=== PATIENT | female | born 1960 | race Caucasian/White ===

== ENCOUNTER → 2016-05-24 | Outpatient (CLI) | payer BC ==
[~2016-05-24] MED LIST: ACET30TAB PO; AMBI5TAB PO; BROM5CAP PO; BUPR15TAXL PO; CELE40TA PO; MOTR200T40 PO; SYNT100T PO; SYNT88TA2 PO; VOLTAREN PR; [UNRECOGNIZED DRUG - CODE] PO
[2016-05-24 10:15] LABS: BASO % 0.7 % (0.0-1.0); EOS # 0.3 K/mm3 (0.0-0.50); EOS % 4.8 % (0.0-3.0); LARGE UNSTAINED CELL # 0.2 K/mm3 (0.0-0.4); LARGE UNSTAINED CELL % 3.1 % (0.0-4.0); LYMPH % 30.6 % (24.0-44.0); MEAN CORPUSCULAR HEMOGLOBIN 29.7 pg (27.0-33.0); MEAN CORPUSCULAR VOLUME 90.1 fl (80.0-96.0); MONO # 0.3 K/mm3 (0.0-0.8); MONO % 3.9 % (0.0-5.0); NEUTROPHILS # 3.7 K/mm3 (1.8-7.7); NEUTROPHILS % 56.8 % (36.0-66.0); PLATELET COUNT, AUTOMATED 282 k/mm3 (150-450); WHITE BLOOD COUNT 6.4 K/mm3 (4.0-10.0)
[2016-05-24 10:55] LABS: ALBUMIN 3.7 GM/DL (3.2-5.2); ALBUMIN/GLOBULIN RATIO 1.16 (1.00-1.93); ALKALINE PHOSPHATASE 132 U/L (45-117); ALT/SGPT 24 U/L (12-78); ANION GAP 7 MEQ/L (8-16); AST/SGOT 17 U/L (15-37); BILIRUBIN,TOTAL 0.3 MG/DL (0.2-1.0); BLOOD UREA NITROGEN 25 MG/DL (7-18); CALCIUM LEVEL 8.8 MG/DL (8.5-10.1); CARBON DIOXIDE LEVEL 26 MEQ/L (21-32); CHLORIDE LEVEL 111 MEQ/L (98-107); CHOLESTEROL LEVEL 290 MG/DL (<200); CREATININE FOR GFR 0.74 MG/DL (0.55-1.02); FERRITIN 81 NG/ML (8-252); FREE T4 1.02 NG/DL (0.76-1.46); GLOMERULAR FILTRATION RATE > 60.0 (>51); GLUCOSE, FASTING 90 MG/DL (70-105); POTASSIUM SERUM 4.6 MEQ/L (3.5-5.1); SODIUM LEVEL 144 MEQ/L (136-145); TOTAL PROTEIN 6.9 GM/DL (6.4-8.2); TRIGLYCERIDES LEVEL 173 MG/DL (<150)
== END ==
LOC: M LAB 09:58
PROVIDERS: ATTEND Family Medicine
DX: D50.9 Iron deficiency anemia, unspecified (principal); Z13.29 Encounter for screening for other suspected endocrine disorder; Z13.220 Encounter for screening for lipoid disorders; E03.8 Other specified hypothyroidism

== ENCOUNTER → 2016-06-27 | Outpatient (CLI) | payer BC ==
[~2016-06-27] MED LIST changes: -MOTR200T40 PO; +MOTR200T44 PO
[2016-06-27 10:02] LABS: FREE T4 1.1 NG/DL (0.76-1.46)
[2016-06-27 10:46] LABS: PROLACTIN 8.2 NG/ML
== END ==
LOC: M LAB 09:07
PROVIDERS: ATTEND Internal Medicine
DX: E03.9 Hypothyroidism, unspecified (principal); E22.1 Hyperprolactinemia

== ENCOUNTER → 2016-06-27 | Outpatient (CLI) | payer BC ==
[2016-06-27 09:58] LABS: ALBUMIN 3.7 GM/DL (3.2-5.2); ALBUMIN/GLOBULIN RATIO 1.19 (1.00-1.93); ALKALINE PHOSPHATASE 139 U/L (45-117); ALT/SGPT 23 U/L (12-78); ANION GAP 5 MEQ/L (8-16); AST/SGOT 18 U/L (15-37); BILIRUBIN,TOTAL 0.3 MG/DL (0.2-1.0); BLOOD UREA NITROGEN 27 MG/DL (7-18); CALCIUM LEVEL 9.2 MG/DL (8.5-10.1); CARBON DIOXIDE LEVEL 29 MEQ/L (21-32); CHLORIDE LEVEL 110 MEQ/L (98-107); CHOLESTEROL LEVEL 184 MG/DL (<200); CREATININE FOR GFR 0.66 MG/DL (0.55-1.02); GLOMERULAR FILTRATION RATE > 60.0 (>51); GLUCOSE, FASTING 85 MG/DL (70-105); POTASSIUM SERUM 4.4 MEQ/L (3.5-5.1); SODIUM LEVEL 144 MEQ/L (136-145); TOTAL PROTEIN 6.8 GM/DL (6.4-8.2); TRIGLYCERIDES LEVEL 93 MG/DL (<150)
--- NOTE | 2016-06-27 12:55 | REPMRS ---
Patient History The patient states she has not had a clinical breast exam in over a year. Family history of breast cancer in maternal grandmother at age 40, breast cancer in maternal cousin at age 45, and colorectal cancer in maternal uncle at age 65. Benign ultrasound-guided core biopsy of the right breast, October 17, 2008. Digital Mammo Screening Bilat: June 27, 2016 - Exam #: [id number] Bilateral CC and MLO view(s) were taken. Technologist: Angela Castro, Technologist Prior study comparison: May 15, 2015, bilateral digital mammo screening bilat performed at [facility]. October 19, 2013, bilateral digital mammo screening bilat performed at [facility]. August 12, 2012, bilateral digital mammo screening bilat performed at [facility]. FINDINGS: There are scattered fibroglandular densities. There has been no change in the appearance of the mammogram from the prior studies. There is a needle biopsy marker clip in the right breast. There is a mild amount of scattered fibroglandular density which is fairly symmetric. There is no interval development of dominant mass, architectural distortion, or clustered microcalcification suggestive of malignancy. ASSESSMENT: BI-RADS/ACR category 2 mammogram. Benign finding(s). Recommendation Routine screening mammogram in 1 year (for women over age 40). This mammogram was interpreted with the aid of an FDA-approved computer-aided dectection system. Electronically Signed By: Everardo Obando MD 06/27/16 [id number]
== END ==
LOC: M LAB 09:02
PROVIDERS: ATTEND Family Medicine
DX: E78.00 Pure hypercholesterolemia, unspecified (principal); Z12.31 Encounter for screening mammogram for malignant neoplasm of breast
CPT/HCPCS: 36415; 80053; 80061; G0202

== ENCOUNTER → 2016-12-18 | Outpatient (CLI) | payer BC ==
[2016-12-18 14:56] LABS: BASO % 0.6 % (0.0-1.0); EOS # 0.2 K/mm3 (0.0-0.50); EOS % 3.2 % (0.0-3.0); LARGE UNSTAINED CELL # 0.2 K/mm3 (0.0-0.4); LARGE UNSTAINED CELL % 2.1 % (0.0-4.0); LYMPH # 3.2 K/mm3 (1.5-4.5); LYMPH % 42.6 % (24.0-44.0); MEAN CORPUSCULAR HEMOGLOBIN 31.4 pg (27.0-33.0); MEAN CORPUSCULAR HGB CONC 35.4 g/dl (32.0-36.5); MEAN CORPUSCULAR VOLUME 88.7 fl (80.0-96.0); MONO # 0.3 K/mm3 (0.0-0.8); MONO % 4.7 % (0.0-5.0); NEUTROPHILS # 3.4 K/mm3 (1.8-7.7); NEUTROPHILS % 46.8 % (36.0-66.0); PLATELET COUNT, AUTOMATED 285 k/mm3 (150-450); RED CELL DISTRIBUTION WIDTH 13.5 % (11.5-14.5); WHITE BLOOD COUNT 7.2 K/mm3 (4.0-10.0)
[2016-12-18 15:30] LABS: ALBUMIN 3.7 GM/DL (3.2-5.2); PERCENT SATURATION 16.4 % (13.2-45.0)
== END ==
LOC: M LAB 14:31
PROVIDERS: ATTEND Orthopaedic Surgery
DX: Z01.818 Encounter for other preprocedural examination (principal); D63.8 Anemia in other chronic diseases classified elsewhere; M25.562 Pain in left knee; M17.10 Unilateral primary osteoarthritis, unspecified knee

== ENCOUNTER 2017-03-13 12:00 | Outpatient (RCR) | payer BC | END 2017-03-18 | LOC: M PT 12:00 | PROVIDERS: ATTEND Orthopaedic Surgery | DX: M25.562 Pain in left knee (principal); M17.5 Other unilateral secondary osteoarthritis of knee; M17.12 Unilateral primary osteoarthritis, left knee; S83.102A Unspecified subluxation of left knee, initial encounter; X58.XXXA Exposure to other specified factors, initial encounter; Y92.9 Unspecified place or not applicable ==

== ENCOUNTER → 2017-05-01 | Outpatient (CLI) | payer BC ==
[2017-05-01 08:59] LABS: BASO # 0.1 10^3/uL (0.0-0.2); BASO % 0.8 % (0.0-1.0); EOS # 0.3 10^3/uL (0.0-0.50); EOS % 4.2 % (0.0-3.0); IMMATURE GRANULOCYTE % 0.2 % (0-0); LYMPH # 1.7 10^3/uL (1.5-4.5); LYMPH % 26.6 % (24.0-44.0); MEAN CORPUSCULAR HEMOGLOBIN 28.7 pg (27.0-33.0); MEAN CORPUSCULAR HGB CONC 32.7 g/dl (32.0-36.5); MEAN CORPUSCULAR VOLUME 87.8 fl (80.0-96.0); MONO # 0.4 10^3/uL (0.0-0.8); MONO % 7.1 % (0.0-5.0); NEUTROPHILS # 3.8 10^3/uL (1.8-7.7); NEUTROPHILS % 61.1 % (36.0-66.0); PLATELET COUNT, AUTOMATED 360 10^3/uL (150-450); RED CELL DISTRIBUTION WIDTH 14.3 % (11.5-14.5); WHITE BLOOD COUNT 6.2 10^3/uL (4.0-10.0)
[2017-05-01 09:36] LABS: ALBUMIN 3.8 GM/DL (3.2-5.2); ALBUMIN/GLOBULIN RATIO 1.19 (1.00-1.93); ALKALINE PHOSPHATASE 115 U/L (45-117); ALT/SGPT 22 U/L (12-78); ANION GAP 6 MEQ/L (8-16); AST/SGOT 18 U/L (7-37); BILIRUBIN,TOTAL 0.2 MG/DL (0.2-1.0); BLOOD UREA NITROGEN 19 MG/DL (7-18); CALCIUM LEVEL 8.8 MG/DL (8.5-10.1); CARBON DIOXIDE LEVEL 27 MEQ/L (21-32); CHLORIDE LEVEL 108 MEQ/L (98-107); CHOLESTEROL LEVEL 172 MG/DL (<200); CREATININE FOR GFR 0.64 MG/DL (0.55-1.02); GLOMERULAR FILTRATION RATE > 60.0 (>51); GLUCOSE, FASTING 89 MG/DL (70-105); POTASSIUM SERUM 4.6 MEQ/L (3.5-5.1); SODIUM LEVEL 141 MEQ/L (136-145); TRIGLYCERIDES LEVEL 97 MG/DL (<150)
== END ==
LOC: M LAB 08:20
PROVIDERS: ATTEND Family Medicine
DX: E78.00 Pure hypercholesterolemia, unspecified (principal)

== ENCOUNTER → 2017-06-05 | Outpatient (CLI) | payer BC ==
[2017-06-05 09:24] LABS: FREE T4 1.18 NG/DL (0.76-1.46); THYROID STIMULATING HORMONE 0.999 uIU/ML (0.358-3.740)
[2017-06-10 14:14] LABS: PERCENT MACROPROLACTIN 0 % (.); PROLACTIN MONOMERIC 11 ng/mL (.); PROLACTIN TOTAL 11 ng/mL (.)
== END ==
LOC: M LAB 08:11
DX: E03.9 Hypothyroidism, unspecified (principal); E22.1 Hyperprolactinemia
CPT/HCPCS: 84146

== ENCOUNTER → 2017-11-06 | Outpatient (CLI) | payer BC ==
[~2017-11-06] MED LIST changes: -ACET30TAB PO; -AMBI5TAB PO; -BROM5CAP PO; -BUPR15TAXL PO; -CELE40TA PO; +LIDOCAINE 1% MDV 20ML VIAL As Ordered; -MOTR200T44 PO; -SYNT100T PO; -SYNT88TA2 PO; -VOLTAREN PR; -[UNRECOGNIZED DRUG - CODE] PO
== END ==
LOC: M RAD 08:05 → M RADPRO 08:05
DX: R92.0 Mammographic microcalcification found on diagnostic imaging of breast (principal); Z79.899 Other long term (current) drug therapy; Z88.0 Allergy status to penicillin; Z88.2 Allergy status to sulfonamides; Z79.890 Hormone replacement therapy
CPT/HCPCS: 19081

== ENCOUNTER → 2017-11-07 | Outpatient (CLI) | payer BC | LOC: M WHC 12:54 | DX: Z13.820 Encounter for screening for osteoporosis (principal); M81.0 Age-related osteoporosis without current pathological fracture | CPT/HCPCS: 77080 ==

== ENCOUNTER → 2017-11-20 | Outpatient (CLI) | payer BC | LOC: M CARPUL 09:11 | DX: R01.1 Cardiac murmur, unspecified (principal) | CPT/HCPCS: 93306 ==

== ENCOUNTER → 2017-11-27 | Outpatient (CLI) | payer BC ==
[2017-11-27 10:17] LABS: HEMOGLOBIN 11.9 g/dl (12.0-15.5)
[2017-11-27 11:16] LABS: FERRITIN 99 NG/ML (8-252); IRON (FE) 54 UG/DL (50-170); PERCENT SATURATION 17.8 % (13.2-45.0); TOTAL IRON BINDING CAPACITY 304 UG/DL (250-450)
[2017-11-27 11:16] LABS: ALBUMIN 3.7 GM/DL (3.2-5.2)
== END ==
LOC: M LAB 09:50
DX: M25.562 Pain in left knee (principal)
CPT/HCPCS: 82040

== ENCOUNTER → 2018-01-15 | Outpatient (CLI) | payer BC ==
[2018-01-15 11:45] LABS: BASO % 0.6 % (0.0-1.0); EOS # 0.2 10^3/uL (0.0-0.50); EOS % 3.8 % (0.0-3.0); HEMATOCRIT 36.1 % (36.0-47.0); IMMATURE GRANULOCYTE % 0.3 % (0-3.0); LYMPH % 31.3 % (24.0-44.0); MEAN CORPUSCULAR HEMOGLOBIN 29.6 pg (27.0-33.0); MEAN CORPUSCULAR HGB CONC 33.2 g/dl (32.0-36.5); MEAN CORPUSCULAR VOLUME 88.9 fl (80.0-96.0); MONO # 0.4 10^3/uL (0.0-0.8); MONO % 6.1 % (0.0-5.0); NEUTROPHILS # 3.7 10^3/uL (1.8-7.7); NEUTROPHILS % 57.9 % (36.0-66.0); PLATELET COUNT, AUTOMATED 300 10^3/uL (150-450); RED BLOOD COUNT 4.06 10^6/uL (4.00-5.40); RED CELL DISTRIBUTION WIDTH 14.3 % (11.5-14.5); WHITE BLOOD COUNT 6.4 10^3/uL (4.0-10.0)
[2018-01-15 11:56] LABS: INR 1.03; PROTHROMBIN TIME 13.6 SECONDS (12.1-14.4)
[2018-01-15 11:57] LABS: PARTIAL THROMBOPLASTIN TIME 35.4 SECONDS (25.4-37.6)
[2018-01-15 12:22] LABS: ALBUMIN 3.8 GM/DL (3.2-5.2); ALBUMIN/GLOBULIN RATIO 1.19 (1.00-1.93); ALKALINE PHOSPHATASE 117 U/L (45-117); ALT/SGPT 21 U/L (12-78); ANION GAP 8 MEQ/L (8-16); AST/SGOT 16 U/L (7-37); BILIRUBIN,TOTAL 0.3 MG/DL (0.2-1.0); BLOOD UREA NITROGEN 14 MG/DL (7-18); CALCIUM LEVEL 9.5 MG/DL (8.5-10.1); CARBON DIOXIDE LEVEL 27 MEQ/L (21-32); CHLORIDE LEVEL 107 MEQ/L (98-107); GLOMERULAR FILTRATION RATE > 60.0 (>51); GLUCOSE, FASTING 94 MG/DL (70-100); POTASSIUM SERUM 4.4 MEQ/L (3.5-5.1); SODIUM LEVEL 142 MEQ/L (136-145)
== END ==
LOC: M LAB 11:22
DX: Z01.818 Encounter for other preprocedural examination (principal)

== ENCOUNTER → 2018-06-16 | Outpatient (CLI) | payer BC ==
[~2018-06-16] MED LIST changes: +ACET30TAB PO; +AMBI5TAB PO; +BROM5CAP PO; +BUPR15TAXL PO; +CELE40TA PO; -LIDOCAINE 1% MDV 20ML VIAL As Ordered; +MOTR200T44 PO; +SYNT100T PO; +SYNT88TA2 PO; +VOLTAREN PR; +[UNRECOGNIZED DRUG - CODE] PO
[2018-06-16 09:04] LABS: FREE T4 1.31 NG/DL (0.76-1.46); THYROID STIMULATING HORMONE 0.298 uIU/ML (0.358-3.740)
[2018-06-16 09:05] LABS: PROLACTIN 5.6 NG/ML
== END ==
LOC: M LAB 08:01
PROVIDERS: ATTEND Nurse Practitioner Family
DX: E03.9 Hypothyroidism, unspecified (principal); E22.1 Hyperprolactinemia

== ENCOUNTER → 2018-07-28 | Outpatient (CLI) | payer BC ==
[2018-07-28 08:48] LABS: FREE T4 1.29 NG/DL (0.76-1.46); THYROID STIMULATING HORMONE 0.447 uIU/ML (0.358-3.740)
== END ==
LOC: M LAB 08:02
PROVIDERS: ATTEND Internal Medicine Endocrinology, Diabetes & Metabolism
DX: E03.9 Hypothyroidism, unspecified (principal)

== ENCOUNTER → 2018-12-22 | Outpatient (CLI) | payer BC ==
[~2018-12-22] MED LIST changes: +ACET-716 PO; -ACET30TAB PO; -BUPR15TAXL PO; +BUPR1TAB43 PO
--- NOTE | 2018-12-22 11:08 | REPMRS ---
Patient History The patient states she has not had a clinical breast exam in over a year. Family history of breast cancer at age 40 in maternal grandmother, breast cancer at age 45 in maternal cousin, colorectal cancer at age 65 in maternal uncle, breast cancer at age 59 in maternal cousin. Benign radio exam breast specimen of the right breast, November 06, 2017. Benign stereotatic loc for ea lesion of the right breast, November 06, 2017. Benign ultrasound-guided core biopsy of the right breast, October 17, 2008. Taking unspecified hormones for 25 years. 3D TOMOSYNTHESIS WAS PERFORMED. The [facility] lifetime risk for breast cancer is 14.8%. Digital Mammo Screening Bilat: December 22, 2018 - Exam #: [id number] Bilateral CC and MLO view(s) were taken. Technologist: Angela Castro, Technologist Prior study comparison: November 06, 2017, right breast digital mammo diagnostic unilateral performed at [facility]. November 06, 2017, bilateral digital mammo screening bilat performed at [facility]. FINDINGS: The breast tissue is heterogeneously dense. This may lower the sensitivity of mammography. There has been no change in the appearance of the mammogram from the prior studies. There is a moderate amount of residual fibroglandular tissue which is fairly symmetric. There is no interval development of dominant mass, areas of architectural distortion, or clustered microcalcification typical of malignancy. Assessment: BI-RADS/ACR category 1 mammogram. Negative Mammogram. Recommendation Routine screening mammogram in 1 year (for women over age 40). This mammogram was interpreted with the aid of an FDA-approved computer-aided dectection system. Electronically Signed By: Jose Fitzgerald MD 12/22/18 [id number]
== END ==
LOC: M RAD 09:53
PROVIDERS: ATTEND Family Medicine
DX: Z12.31 Encounter for screening mammogram for malignant neoplasm of breast (principal); Z92.0 Personal history of contraception

== ENCOUNTER → 2019-01-20 | Outpatient (CLI) | payer BC ==
[2019-01-20 08:43] LABS: FREE T4 1.3 NG/DL (0.76-1.46); THYROID STIMULATING HORMONE 0.778 uIU/ML (0.358-3.740)
[2019-01-20 12:35] LABS: PROLACTIN 9.9 NG/ML
== END ==
LOC: M LAB 07:32
PROVIDERS: ATTEND Nurse Practitioner Family
DX: E03.9 Hypothyroidism, unspecified (principal); E22.1 Hyperprolactinemia

== ENCOUNTER → 2019-01-20 | Outpatient (CLI) | payer BC ==
[2019-01-20 08:11] LABS: BASO # 0.1 10^3/uL (0.0-0.2); BASO % 0.8 % (0.0-1.0); EOS # 0.3 10^3/uL (0.0-0.5); EOS % 3.9 % (0.0-3.0); HEMOGLOBIN 12.8 g/dl (12.0-15.5); MEAN CORPUSCULAR HEMOGLOBIN 30.4 pg (27.0-33.0); MEAN CORPUSCULAR HGB CONC 33.7 g/dl (32.0-36.5); MEAN CORPUSCULAR VOLUME 90.3 fl (80.0-96.0); MONO # 0.5 10^3/uL (0.0-0.8); MONO % 6.5 % (0.0-5.0); NEUTROPHILS # 4.6 10^3/uL (1.5-8.5); NEUTROPHILS % 61.4 % (36.0-66.0); PLATELET COUNT, AUTOMATED 397 10^3/uL (150-450); RED BLOOD COUNT 4.21 10^6/uL (4.00-5.40); WHITE BLOOD COUNT 7.4 10^3/uL (4.0-10.0)
[2019-01-20 08:36] LABS: ALBUMIN 3.6 GM/DL (3.2-5.2); ALT/SGPT 19 U/L (12-78); BILIRUBIN,TOTAL 0.2 MG/DL (0.2-1.0); BLOOD UREA NITROGEN 16 MG/DL (7-18); CARBON DIOXIDE LEVEL 25 MEQ/L (21-32); CHLORIDE LEVEL 112 MEQ/L (98-107); CHOLESTEROL LEVEL 187 MG/DL (<200); CHOLESTEROL RISK RATIO 3.462 (<5); FERRITIN 145 NG/ML (8-252); GLOMERULAR FILTRATION RATE > 60.0 (>51); GLUCOSE, FASTING 92 MG/DL (70-100); HDL CHOLESTEROL 54 MG/DL (>40); IRON (FE) 50 UG/DL (50-170); LDL CHOLESTEROL 99 MG/DL (<100); NON-HDL-C 133 MG/DL; PERCENT SATURATION 16.5 % (13.2-45.0); POTASSIUM SERUM 4.4 MEQ/L (3.5-5.1); SODIUM LEVEL 143 MEQ/L (136-145); TOTAL IRON BINDING CAPACITY 303 UG/DL (250-450); TOTAL PROTEIN 6.7 GM/DL (6.4-8.2); TRIGLYCERIDES LEVEL 171 MG/DL (<150)
[2019-01-20 12:45] LABS: TOTAL 25(OH) VITAMIN D 51.9 NG/ML (30.0-100.0)
== END ==
LOC: M LAB 07:30
PROVIDERS: ATTEND Family Medicine
DX: D50.9 Iron deficiency anemia, unspecified (principal); E78.00 Pure hypercholesterolemia, unspecified; Z13.29 Encounter for screening for other suspected endocrine disorder; E55.9 Vitamin D deficiency, unspecified

== ENCOUNTER → 2019-08-04 | Outpatient (CLI) | payer BC ==
[2019-08-04 10:53] LABS: FREE T4 1.24 NG/DL (0.76-1.46); THYROID STIMULATING HORMONE 0.277 uIU/ML (0.358-3.740)
[2019-08-04 10:54] LABS: PROLACTIN 7.5 NG/ML
== END ==
LOC: M PLALAB 07:58
PROVIDERS: ATTEND Nurse Practitioner Family
DX: E03.9 Hypothyroidism, unspecified (principal); E22.1 Hyperprolactinemia

== ENCOUNTER → 2020-01-27 | Outpatient (CLI) | payer BC ==
--- NOTE | 2020-01-27 11:45 | REPMRS ---
Patient History The patient states she has not had a clinical breast exam in over a year. Family history of breast cancer at age 40 in maternal grandmother, breast cancer at age 45 in maternal cousin, colorectal cancer at age 65 in maternal uncle, breast cancer at age 60 in maternal cousin. Benign radio exam breast specimen of the right breast, November 06, 2017. Benign stereotatic loc for ea lesion of the right breast, November 06, 2017. Benign ultrasound-guided core biopsy of the right breast, October 17, 2008. Taking unspecified hormones for 25 years. 3D TOMOSYNTHESIS WAS PERFORMED. The [facility] lifetime risk for breast cancer is 14.4%. VOLPARA DENSITY B. Digital Woman Screen Mammo: January 27, 2020 - Exam #: [id number] Bilateral CC and MLO view(s) were taken. Technologist: Angela Castro, Technologist Prior study comparison: December 22, 2018, bilateral digital mammo screening bilat, performed at [facility]. November 06, 2017, right breast digital mammo diagnostic unilateral, performed at [facility]. FINDINGS: There are scattered fibroglandular densities. There has been no change in the appearance of the mammogram from the prior studies. There is a mild amount of residual fibroglandular tissue which is fairly symmetric. There is no interval development of dominant mass, architectural distortion, or clustered microcalcification suggestive of malignancy. Assessment: BI-RADS/ACR category 1 mammogram. Negative Mammogram. Recommendation Routine screening mammogram in 1 year (for women over age 40). This mammogram was interpreted with the aid of an FDA-approved computer-aided dectection system. Electronically Signed By: Jose Fitzgerald MD 01/27/20 [id number]
== END ==
LOC: M WHC 11:09
PROVIDERS: ATTEND Family Medicine
DX: Z12.31 Encounter for screening mammogram for malignant neoplasm of breast (principal); Z86.018 Personal history of other benign neoplasm; Z79.899 Other long term (current) drug therapy

== ENCOUNTER → 2020-02-01 | Outpatient (CLI) | payer BC ==
[2020-02-01 11:37] LABS: BASO # 0.1 10^3/uL (0.0-0.2); BASO % 0.4 % (0.0-1.0); EOS # 0.1 10^3/uL (0.0-0.5); EOS % 1.1 % (0.0-3.0); HEMATOCRIT 35.9 % (36.0-47.0); HEMOGLOBIN 11.9 g/dl (12.0-15.5); LYMPH # 1.4 10^3/uL (1.5-5.0); LYMPH % 11.8 % (24.0-44.0); MEAN CORPUSCULAR HEMOGLOBIN 29.4 pg (27.0-33.0); MEAN CORPUSCULAR HGB CONC 33.1 g/dl (32.0-36.5); MEAN CORPUSCULAR VOLUME 88.6 fl (80.0-96.0); MONO # 0.9 10^3/uL (0.0-0.8); MONO % 7.6 % (0.0-5.0); NEUTROPHILS # 9.2 10^3/uL (1.5-8.5); NEUTROPHILS % 78.7 % (36.0-66.0); PLATELET COUNT, AUTOMATED 328 10^3/uL (150-450); RED BLOOD COUNT 4.05 10^6/uL (4.00-5.40); WHITE BLOOD COUNT 11.7 10^3/uL (4.0-10.0)
[2020-02-01 11:56] LABS: ALBUMIN 3.3 GM/DL (3.2-5.2); ALT/SGPT 22 U/L (12-78); BILIRUBIN,TOTAL 0.2 MG/DL (0.2-1.0); BLOOD UREA NITROGEN 19 MG/DL (7-18); CARBON DIOXIDE LEVEL 25 MEQ/L (21-32); CHLORIDE LEVEL 109 MEQ/L (98-107); CHOLESTEROL LEVEL 159 MG/DL (<200); CHOLESTEROL RISK RATIO 2.789 (<5); CREATININE FOR GFR 0.68 MG/DL (0.55-1.30); FERRITIN 394 NG/ML (8-252); FREE T4 1.39 NG/DL (0.76-1.46); GLOMERULAR FILTRATION RATE > 60.0 (>51); GLUCOSE, FASTING 98 MG/DL (70-100); HDL CHOLESTEROL 57 MG/DL (>40); IRON (FE) 11 UG/DL (50-170); LDL CHOLESTEROL 89 MG/DL (<100); NON-HDL-C 102 MG/DL; PERCENT SATURATION 4.2 % (13.2-45.0); POTASSIUM SERUM 3.6 MEQ/L (3.5-5.1); SODIUM LEVEL 139 MEQ/L (136-145); THYROID STIMULATING HORMONE 0.273 uIU/ML (0.358-3.740); TOTAL IRON BINDING CAPACITY 259 UG/DL (250-450); TRIGLYCERIDES LEVEL 66 MG/DL (<150)
[2020-02-01 13:26] LABS: TOTAL 25(OH) VITAMIN D 39.9 NG/ML (30.0-100.0)
== END ==
LOC: M PLALAB 08:09
PROVIDERS: ATTEND Family Medicine
DX: E03.8 Other specified hypothyroidism (principal); D50.9 Iron deficiency anemia, unspecified; E55.9 Vitamin D deficiency, unspecified; Z13.29 Encounter for screening for other suspected endocrine disorder

== ENCOUNTER → 2020-02-09 | Outpatient (CLI) | payer BC ==
[2020-02-09 14:07] LABS: RHEUMATOID FACTOR QUANT < 10.0 IU/ML (<15.0)
[2020-02-11 03:11] LABS: ANA (HEP2) Negative (.); CYCLIC CITRULLINATED PEPTIDE 2 units (0-19); Lyme Disease IgG/IgM Antibodie <0.91 ISR (0.00-0.90); Lyme Disease IgM Ab Quantitati <0.80 index (0.00-0.79)
== END ==
LOC: M PLALAB 11:12
PROVIDERS: ATTEND Physician Assistant
DX: M25.50 Pain in unspecified joint (principal)

== ENCOUNTER → 2020-03-17 | Outpatient (REF) | payer BC | LOC: M SFHCRHEU 14:52 | PROVIDERS: ATTEND Internal Medicine | DX: M25.50 Pain in unspecified joint (principal) ==

== ENCOUNTER → 2020-03-21 | Outpatient (CLI) | payer BC ==
--- NOTE | 2020-03-21 10:21 | DEXA ---
INDICATION: Z78.0 MENOPAUSAL. COMPARISON: 11/07/2017, 07/20/2003. TECHNIQUE: Bone density was measured using dual-energy x-ray absorptiometry (DEXA). FINDINGS: AP SPINE L1-L4 BMD 1.144 g/cm2 Young Adult T-Score -0.4 Age Matched Z-Score 0.7. LT FEMUR, TOTAL BMD 0.735 g/cm2 Young Adult T-Score -2.2 Age Matched Z-Score -1.3. LT NECK BMD 0.824 g/cm2 Young Adult T-Score -1.5 Age Matched Z-Score -0.4. RT FEMUR, TOTAL BMD 0.762 g/cm2 Young Adult T-Score -1.9 Age Matched Z-Score -1.1. RT NECK BMD 0.852 g/cm2 Young Adult T-Score -1.3 Age Matched Z-Score -0.1. IMPRESSION: There is normal bone density of the spine. There is low bone density of the left hip. There is low bone density of the right hip. The density of the spine has increased 6.7% since the initial exam on 07/20/2003. The density of the spine increased 5.4% since most recent exam on 11/07/2017. The density of the left hip has decreased 24.4% since initial exam on 07/20/2003. The density of the left hip has increased 0.8% since most recent exam on 11/07/2017. The density of the right hip has decreased 23.5% since the initial exam on 07/20/2003. The density of the right hip has decreased 2.9% since the most recent exam on 11/07/2017. FOLLOW-UP: Recommendation for the next bone density exam: 2 years. <Electronically signed by Jose Fitzgerald > 03/21/20 [id number]
== END ==
LOC: M WHC 09:17
PROVIDERS: ATTEND Internal Medicine
DX: Z78.0 Asymptomatic menopausal state (principal); M85.851 Other specified disorders of bone density and structure, right thigh; M85.852 Other specified disorders of bone density and structure, left thigh

== ENCOUNTER → 2020-03-24 | Outpatient (CLI) | payer BC ==
--- NOTE | 2020-03-24 17:08 | REPPI ---
INDICATION: M19.079 OSTEOARTHRITIS OF ANKLE AND FOOT UNSPECIFIED LATERAL. COMPARISON: None. FINDINGS: Left ankle: No acute fracture or destructive osseous lesion. The mortise is intact. There is a small plantar calcaneal heel spur. Right ankle: There is a small retrocalcaneal heel spur. IMPRESSION: Chronic changes as described above. <Electronically signed by Hector Mcgarry > 03/24/20 [id number]
--- NOTE | 2020-03-24 17:23 | REPPI ---
INDICATION: M19.079 OSTEOARTHRITIS OF ANKLE AND FOOT UNSPECIFIED LATERAL. COMPARISON: Ankle series this date. TECHNIQUE: Four views of each foot FINDINGS: Right foot: Spine osteotomy and bunionectomy of the distal 1st metatarsal with a 2 lag screws, well-healed. There is metatarsus varus with lateral deviation of the 1st toe at the MTP joint some degenerative changes at the MTP joint chronic subluxation of the 2nd and 3rd MTP joints and the PIP joint of the 3rd toe is subluxed. I do not see evidence of any acute fracture of the metatarsals or phalanges. Tarsal bones there are articulation are preserved. Talonavicular and calcaneocuboid joints are normal. Subtalar joints preserved. There is a plantar calcaneal spur on the lateral view. Distal tibia and fibula intact. Left foot: Osteotomy and bunionectomy of the distal 1st metatarsal with metatarsus varus and some mild lateral subluxation of the 1st MTP joint. This is less severe than on the right. Chronic subluxation of the 2nd and 3rd MTP joints. No evidence of hardware failure. There is no fracture the metatarsals are visualized phalanges. Tarsal bones and articulations are intact. Tiny plantar calcaneal spur and Achilles insertional spur. Subtalar joints intact. Talonavicular and calcaneocuboid articulations normal. Visualized distal tibia and fibula without acute finding. Some accessory ossicles adjacent to the medial aspect of the navicular. IMPRESSION: 1. Status post bilateral osteotomy and bunionectomy is of the distal 1st metatarsals with 2 screws intact on the right and 1 on the left. However metatarsus varus and degenerative changes at the 1st MTP joint are seen. Lateral subluxation of the 1st MTP joint and lateral deviation on the right and left respectively 2. Chronic subluxation 2nd and 3rd MTP joints bilaterally. 3. No acute fracture or other significant acute finding. <Electronically signed by Albaro Gonzalez > 03/24/20 [id number]
== END ==
LOC: M PLAIMG 15:15
PROVIDERS: ATTEND Internal Medicine
DX: M19.071 Primary osteoarthritis, right ankle and foot (principal); M77.32 Calcaneal spur, left foot; M19.072 Primary osteoarthritis, left ankle and foot; M77.31 Calcaneal spur, right foot

== ENCOUNTER → 2020-03-30 | Outpatient (REF) | payer BC ==
[~2020-03-30] MED LIST changes: +CRES5TAB PO; +IRON27TA2 PO; +LEXA1TAB PO; +SYNT175T2 PO; +WELLTAB38 PO
== END ==
LOC: M SFHCRHEU 11:49
PROVIDERS: ATTEND Internal Medicine
DX: M85.80 Other specified disorders of bone density and structure, unspecified site (principal)

== ENCOUNTER → 2020-04-05 | Outpatient (CLI) | payer BC | LOC: M LABSMTC 12:38 | PROVIDERS: ATTEND Anesthesiology | DX: Z01.812 Encounter for preprocedural laboratory examination (principal); Z20.828 Contact with and (suspected) exposure to other viral communicable diseases ==

== ENCOUNTER 2020-04-10 08:37 | Day surgery (SDC) | payer BC ==
[~2020-04-10] VITALS: Ht 157.5 cm; Wt 73.0 kg
[~2020-04-10 08:37] MED LIST changes: +LIDOCAINE 2% 100MG/5ML SDV (FOR ANES.) As Ordered ONE; +NS 1,000 ML IV ONE; +propofoL 200 MG/20 ML VIAL As Ordered ONE
[2020-04-10] MEDS ORDERED: propofoL 200 MG/20 ML VIAL As Ordered ONE (10:08)
--- NOTE | 2020-04-10 10:09 | ROOR ---
Patient Name: Rut Mueller Procedure Date: 04/10/2020 9:53 AM Date of : 1960 Age: 60 Room: [facility] Gender: Female Note Status: Finalized Procedure: Upper Endoscopy + Biopsies Indications: Iron deficiency anemia Providers: Miguel Angel Malone MD Referring MD: Angelica COBIAN DO Requesting Provider: Medicines: Monitored Anesthesia Care Complications: No immediate complications. Procedure: Pre-Anesthesia Assessment: - The heart rate, respiratory rate, oxygen saturations, blood pressure, adequacy of pulmonary ventilation, and response to care were monitored throughout the procedure. The Endoscope was introduced through the mouth, and advanced to the second part of duodenum. The upper GI endoscopy was accomplished without difficulty. The patient tolerated the procedure well. Findings: The Z-line was variable and was found 35 cm from the incisors. Multiple biopsies were obtained with cold forceps for evaluation to rule out Carranza's Esophagus randomly at the gastroesophageal junction. A small hiatal hernia was present. No other significant abnormalities were identified in a careful examination of the stomach. Biopsies were taken with a cold forceps in the gastric antrum for Helicobacter pylori testing. The exam of the duodenum was otherwise normal. Biopsies for histology were taken with a cold forceps in the first portion of the duodenum for evaluation of celiac disease. The exam was otherwise without abnormality. Impression: - Z-line variable, 35 cm from the incisors. - Small hiatal hernia. - The examination was otherwise normal. - Multiple biopsies were obtained at the gastroesophageal junction. - Biopsies were taken with a cold forceps for Helicobacter pylori testing. - Biopsies were taken with a cold forceps for evaluation of celiac disease. - The examination was otherwise normal. Recommendation: - Patient has a contact number available for emergencies. The signs and symptoms of potential delayed complications were discussed with the patient. Return to normal activities tomorrow. Written discharge instructions were provided to the patient. - Resume previous diet. - Discharge patient to home. - Follow an antireflux regimen. - Continue present medications. - Await pathology results. - Telephone GI clinic for pathology results in 1 week. - Return to referring physician. - The findings and recommendations were discussed with the patient. Procedure Code(s): --- Professional --- 28467, Esophagogastroduodenoscopy, flexible, transoral; with biopsy, single or multiple Diagnosis Code(s): --- Professional --- K22.8, Other specified diseases of esophagus K44.9, Diaphragmatic hernia without obstruction or gangrene D50.9, Iron deficiency anemia, unspecified CPT copyright 2019 [employer]. All rights reserved. The codes documented in this report are preliminary and upon tug master review may be revised to meet current compliance requirements. Miguel Angel Malone MD Miguel Angel Malone MD 04/10/2020 10:09:13 AM Electronically signed by Miguel Angel Malone MD Number of Addenda: 0 Note Initiated On: 04/10/2020 9:53 AM Estimated Blood Loss: Estimated blood loss: none.
--- NOTE | 2020-04-10 10:26 | ROOR ---
Patient Name: Rut Mueller Procedure Date: 04/10/2020 9:54 AM Date of : 1960 Age: 60 Room: [facility] Gender: Female Note Status: Finalized Procedure: Total Colonoscopy to Cecum Indications: Iron deficiency anemia Providers: Miguel Angel Malone MD Referring MD: Angelica COBIAN DO Requesting Provider: Medicines: Monitored Anesthesia Care Complications: No immediate complications. Procedure: Pre-Anesthesia Assessment: - The heart rate, respiratory rate, oxygen saturations, blood pressure, adequacy of pulmonary ventilation, and response to care were monitored throughout the procedure. The Colonoscope was introduced through the anus and advanced to the cecum, identified by appendiceal orifice and ileocecal valve. The colonoscopy was performed without difficulty. The patient tolerated the procedure well. The quality of the bowel preparation was excellent. Findings: The perianal and digital rectal examinations were normal. Non-bleeding internal hemorrhoids were found during retroflexion. The hemorrhoids were small and Grade I (internal hemorrhoids that do not prolapse). Multiple small and large-mouthed diverticula were found in the recto-sigmoid colon, sigmoid colon and descending colon. The exam was otherwise without abnormality on direct and retroflexion views. Impression: - Non-bleeding internal hemorrhoids. - Diverticulosis in the recto-sigmoid colon, in the sigmoid colon and in the descending colon. - The examination was otherwise normal on direct and retroflexion views. - No specimens collected. - The exam was otherwise normal to the cecum. Recommendation: - Patient has a contact number available for emergencies. The signs and symptoms of potential delayed complications were discussed with the patient. Return to normal activities tomorrow. Written discharge instructions were provided to the patient. - High fiber diet. - Discharge patient to home. - Continue present medications. - Repeat colonoscopy in 10 years for screening purposes. - Return to referring physician. - The findings and recommendations were discussed with the patient. Procedure Code(s): --- Professional --- 02311, Colonoscopy, flexible; diagnostic, including collection of specimen(s) by brushing or washing, when performed (separate procedure) Diagnosis Code(s): --- Professional --- K64.0, First degree hemorrhoids D50.9, Iron deficiency anemia, unspecified K57.30, Diverticulosis of large intestine without perforation or abscess without bleeding CPT copyright 2019 [employer]. All rights reserved. The codes documented in this report are preliminary and upon doctor's assistant review may be revised to meet current compliance requirements. Miguel Angel Malone MD Miguel Angel Malone MD 04/10/2020 10:25:28 AM Electronically signed by Miguel Angel Malone MD Number of Addenda: 0 Note Initiated On: 04/10/2020 9:54 AM Estimated Blood Loss: Estimated blood loss: none.
[2020-04-10 11:00] VITALS: BP 121/80
== END 2020-04-10 11:25 | disposition home or self-care (01) ==
LOC: M OPP 08:37
PROVIDERS: ATTEND Internal Medicine Gastroenterology
DX: K57.30 Diverticulosis of large intestine without perforation or abscess without bleeding (principal); K64.0 First degree hemorrhoids; D50.9 Iron deficiency anemia, unspecified; K22.8 Other specified diseases of esophagus; K44.9 Diaphragmatic hernia without obstruction or gangrene; E03.9 Hypothyroidism, unspecified; Z79.899 Other long term (current) drug therapy; Z88.0 Allergy status to penicillin; Z88.1 Allergy status to other antibiotic agents; Z87.891 Personal history of nicotine dependence

== ENCOUNTER → 2020-07-20 | Outpatient (CLI) | payer BC ==
[~2020-07-20] MED LIST changes: -LIDOCAINE 2% 100MG/5ML SDV (FOR ANES.) As Ordered ONE; -NS 1,000 ML IV ONE; -propofoL 200 MG/20 ML VIAL As Ordered ONE
[2020-07-20 14:33] LABS: THYROID STIMULATING HORMONE 0.026 uIU/ML (0.358-3.740)
[2020-07-20 14:35] LABS: PROLACTIN 21.2 NG/ML
== END ==
LOC: M PLALAB 09:52
PROVIDERS: ATTEND Internal Medicine Endocrinology, Diabetes & Metabolism
DX: E22.1 Hyperprolactinemia (principal); E03.9 Hypothyroidism, unspecified

== ENCOUNTER → 2020-10-26 | Outpatient (CLI) | payer BC ==
[2020-10-26 18:49] LABS: FREE T4 0.99 NG/DL (0.76-1.46); THYROID STIMULATING HORMONE 0.125 uIU/ML (0.358-3.740)
== END ==
LOC: M PLALAB 15:03
PROVIDERS: ATTEND Internal Medicine Endocrinology, Diabetes & Metabolism
DX: E03.9 Hypothyroidism, unspecified (principal)

== ENCOUNTER → 2020-10-26 | Outpatient (REF) | payer BC | LOC: M LAB REF 16:47 | PROVIDERS: ATTEND Internal Medicine | DX: E03.9 Hypothyroidism, unspecified (principal) ==

== ENCOUNTER → 2021-01-10 | Outpatient (CLI) | payer BC ==
[2021-01-10 11:35] LABS: FREE T4 1.17 NG/DL (0.76-1.46); THYROID STIMULATING HORMONE 0.281 uIU/ML (0.358-3.740)
[2021-01-10 11:38] LABS: PROLACTIN 20.6 NG/ML
== END ==
LOC: M PLALAB 07:10
PROVIDERS: ATTEND Internal Medicine Endocrinology, Diabetes & Metabolism
DX: E22.1 Hyperprolactinemia (principal); E03.9 Hypothyroidism, unspecified

== ENCOUNTER → 2021-02-15 | Outpatient (CLI) | payer BC ==
[2021-02-15 08:56] LABS: BASO # 0.1 10^3/uL (0.0-0.2); BASO % 0.8 % (0.0-1.0); EOS # 0.4 10^3/uL (0.0-0.5); EOS % 4.4 % (0.0-3.0); HEMATOCRIT 36.4 % (36.0-47.0); LYMPH # 2.1 10^3/uL (1.5-5.0); LYMPH % 23.7 % (24.0-44.0); MEAN CORPUSCULAR HEMOGLOBIN 30.1 pg (27.0-33.0); MEAN CORPUSCULAR VOLUME 91.2 fl (80.0-96.0); MONO # 0.5 10^3/uL (0.0-0.8); MONO % 5.3 % (2.0-8.0); NEUTROPHILS # 5.6 10^3/uL (1.5-8.5); NEUTROPHILS % 64.9 % (36.0-66.0); PLATELET COUNT, AUTOMATED 333 10^3/uL (150-450); RED BLOOD COUNT 3.99 10^6/uL (4.00-5.40); WHITE BLOOD COUNT 8.7 10^3/uL (4.0-10.0)
[2021-02-15 09:37] LABS: ALBUMIN 3.6 GM/DL (3.2-5.2); ALT/SGPT 24 U/L (12-78); BILIRUBIN,TOTAL 0.3 MG/DL (0.2-1.0); BLOOD UREA NITROGEN 21 MG/DL (7-18); CALCIUM LEVEL 9.3 MG/DL (8.5-10.1); CARBON DIOXIDE LEVEL 30 MEQ/L (21-32); CHLORIDE LEVEL 109 MEQ/L (98-107); CHOLESTEROL LEVEL 198 MG/DL (<200); CREATININE FOR GFR 0.85 MG/DL (0.55-1.30); FERRITIN 168 NG/ML (8-252); FREE T4 1.05 NG/DL (0.76-1.46); GLOMERULAR FILTRATION RATE > 60.0 (>51); GLUCOSE, FASTING 91 MG/DL (70-100); HDL CHOLESTEROL 55 MG/DL (>40); IRON (FE) 56 UG/DL (50-170); LDL CHOLESTEROL 117 MG/DL (<100); NON-HDL-C 143 MG/DL; PERCENT SATURATION 17.7 % (13.2-45.0); POTASSIUM SERUM 4.6 MEQ/L (3.5-5.1); SODIUM LEVEL 144 MEQ/L (136-145); TOTAL IRON BINDING CAPACITY 317 UG/DL (250-450); TOTAL PROTEIN 6.7 GM/DL (6.4-8.2); TRIGLYCERIDES LEVEL 131 MG/DL (<150)
[2021-02-15 11:01] LABS: THYROGLOBULIN ANTIBODY 27.9 U/ML (<60.0); THYROID PEROXIDASE ANTIBODY 208.7 U/ML (<60.0); TOTAL 25(OH) VITAMIN D 45.2 NG/ML (30.0-100.0)
== END ==
LOC: M LAB 07:40
PROVIDERS: ATTEND Family Medicine
DX: E03.8 Other specified hypothyroidism (principal); D50.9 Iron deficiency anemia, unspecified; E78.00 Pure hypercholesterolemia, unspecified; E55.9 Vitamin D deficiency, unspecified

== ENCOUNTER → 2021-02-15 | Outpatient (CLI) | payer BC ==
[2021-02-15 08:55] LABS: HEMATOCRIT 35.7 % (36.0-47.0); HEMOGLOBIN 11.7 g/dl (12.0-15.5); MEAN CORPUSCULAR HEMOGLOBIN 29.9 pg (27.0-33.0); MEAN CORPUSCULAR HGB CONC 32.8 g/dl (32.0-36.5); MEAN CORPUSCULAR VOLUME 91.3 fl (80.0-96.0); PLATELET COUNT, AUTOMATED 316 10^3/uL (150-450); RED BLOOD COUNT 3.91 10^6/uL (4.00-5.40); WHITE BLOOD COUNT 8.7 10^3/uL (4.0-10.0)
[2021-02-15 09:28] LABS: ALBUMIN 3.5 GM/DL (3.2-5.2); ALT/SGPT 23 U/L (12-78); BILIRUBIN,TOTAL 0.3 MG/DL (0.2-1.0); BLOOD UREA NITROGEN 22 MG/DL (7-18); CALCIUM LEVEL 9.5 MG/DL (8.5-10.1); CARBON DIOXIDE LEVEL 30 MEQ/L (21-32); CHLORIDE LEVEL 109 MEQ/L (98-107); CREATININE FOR GFR 0.86 MG/DL (0.55-1.30); GLOMERULAR FILTRATION RATE > 60.0 (>51); GLUCOSE, FASTING 94 MG/DL (70-100); POTASSIUM SERUM 4.5 MEQ/L (3.5-5.1); SODIUM LEVEL 143 MEQ/L (136-145); TOTAL PROTEIN 6.7 GM/DL (6.4-8.2)
--- NOTE | 2021-02-17 10:26 | ECGEPIP ---
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 No prior ECG available for comparison at the time of interpretation. Electronically Signed on 02-17-2021 10:25:50 EDT by Jonathan Barraza
== END ==
LOC: M LAB 07:38
DX: Z01.812 Encounter for preprocedural laboratory examination (principal); Z20.822 Contact with and (suspected) exposure to COVID-19

== ENCOUNTER → 2021-02-26 | Outpatient (CLI) | payer BC ==
[~2021-02-26] MED LIST changes: +THERTAB52 PO
== END ==
LOC: M LABSMTC 11:12
PROVIDERS: ATTEND Anesthesiology
DX: Z01.812 Encounter for preprocedural laboratory examination (principal); Z20.822 Contact with and (suspected) exposure to COVID-19

== ENCOUNTER 2021-03-02 06:04 | Day surgery (SDC) | payer BC ==
[~2021-03-02] VITALS: Ht 160 cm; Wt 81.6 kg
--- OUTSIDE RECORDS SUMMARY | 2021-03-02 06:07 | CCD | Continuity of Care Document ---
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 AUTM Vickie Noble M.D. AUTM [phone] Miguel Angel Malone M.D. AUTM [phone] [facility] Rheumatology AUTM [phone] Problems Active Problems Provider Date Screening mammography Angelica Plummer D.O. Onset: 10/2014 Hypothyroidism Angelica Plummer D.O. Onset: 2014 Tobacco user Angelica Plummer D.O. Onset: 2014 Rosacea Angelica Plummer D.O. Onset: 2014 Acne Angelica Plummer D.O. 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 On set: 09/21/2014 Kyphoscoliosis and scoliosis Angelica Plummer D.O. Onse t: 09/21/2014 Obesity Angelica Plummer D.O. Onset: 2014 Adult health examination Angelica Plummer D.O. Onset: 05/20/2015 Hyperlipidemia screening Angelica Plummer D.O. Onset: 05/20/2015 Suspected hypothyroidism Angelica Plummer D.O. Onset: 05/20/2015 Iron deficiency anemia Angelica Plummer D.O. Onset: 06/2015 Social History Type Date Description Comments Sex Unknown ETOH Use Rarely consumes alcohol Tobacco Use Start: Unknown End: Patient is a former smoker Smoking Status Reviewed: 12/05/20 Patient is a former smoker Allergies, Adverse Reactions, Alerts Active Allergies Reaction Severity Comments Date Penicillins Anaphylaxis 09/21/2014 Sulfa Anaphylaxis 09/21/2014 Medications Active Medications SIG Qnty Indications Ordering Provide r Date Rosuvastatin Calcium 5mg Tablets take 1 tablet by mouth every night 90tabs Angelica Plummer D.O. 08/04/2020 Vitamin D3 Super Strength 2000Unit Capsules 1 by mouth every day 90caps Angelica Plummer D.O. 06/27/2016 Multi Complete/Iron Tablets 1 by mouth every day Angelica Plummer D.O. 05/17 Ferrous Sulfate ER 1 40(45Fe) mg Tablets ER take one tablet daily with multivitamin 90tabs Leidy Plummer D.O. 05/17/2015 Wellbutrin SR 150mg Tablets ER 12H R Take 1 Tab Daily Angelica Plummer D.O. 09/21 Amitriptyline HCL 25mg Tablets Take 1 Tab AT hs Angelica Plummer D.O. 09/21 Lexapro 10mg Tablets 1 by mouth every day Unknown Synthroid 150mcg Tablets 1 by mouth every morning on an empty stomach Unknown 000 Immunizations Description No Information Available Vital Signs Date Vital Result Comment 12/05/2020 8:29am BP Systolic 108 mmHg BP Diastolic 62 mmHg Height 62.50 inches 5'2.50" Weight 185.00 lb BMI (Body Mass Index) 33.3 kg/m2 Heart Rate 85 /min Respiratory Rate 12 /min Body Temperature 96.8 F O2 % BldC Oximetry 99 % [place] Body Weight 110 lb 02/09/2020 8:37am BP Systolic 118 mmHg BP Diastolic 70 mmHg Height 62.50 inches 5'2.50" Weight 162.38 lb BMI (Body Mass Index) 29.2 kg/m2 Heart Rate 86 /min Respiratory Rate 18 /min Body Temperature 99.3 F O2 % BldC Oximetry 97 % [place] Body Weight 110 lb Results Test Acquired Date Facility Test Result H/L Range Note Laboratory test finding 10/26/2020 [facility] Outpatient T [place] (Registration) [address], [place] [id number] [phone] Thyroid Stimulating Hormone 0.125 uIU/ML Low 0. 358-3.740 Free T4 0.99 ng/dL Normal 0.76-1.46 Procedures Date Code Description Status 12/05/2020 93257 Preventive Visit Est 40-64 Yrs C ompleted 01/27/2020 [id number] Mammogram Completed 12/22/2018 [id number] Mammogram Completed 06/27/2016 [id number] Mammogram Completed Medical Devices Description No Information Available Encounters Type Date Location Provider Dx Diagnosis Office Visit 12/05/2020 8:40a Family [facility] Raj ChavezOTereso Z00.00 Encntr for general adult med ical exam w/o abnormal findings D50.9 Iron deficiency anemia, unsp ecified E03.8 Other specified hypothyroidi sm E78.00 Pure hypercholesterolemia, u nspecified E55.9 Vitamin D deficiency, unspec ified Z88.0 Allergy status to penicillin Z88.2 Allergy status to sulfonamid es Z79.899 Other intermodal customer service (current) dr martinez therapy Z12.31 Encntr screen mammogram for malignant neoplasm of breast Assessments Date Code Description Provider 12/05/2020 Z00.00 Encounter for genera l adult medical examination without abnormal findings Raj ChavezOTereso 12/05/2020 D50.9 Iron deficiency anemia, unspecif ied aRj ChavezOTereso 12/05/2020 E03.8 Other specified hypothyroidism Raj AngelesOTereso 12/05/2020 E78.00 Pure hypercholesterolemia, unspe cified Sharlene Chavez.OTereso 12/05/2020 E55.9 Vitamin D deficiency, unspecifie d Raj ChavezOTereso 12/05/2020 Z88.0 Allergy status to penicillin Silvia eleazar Plummer D.O. 12/05/2020 Z88.2 Allergy status to sulfonamides Leidy Plummer D.O. 12/05/2020 Z79.899 Other intermodal customer service (current) drug t herapy Angelica Plummer D.O. 12/05/2020 Z12.31 Encounter for screen ing mammogram for malignant neoplasm of breast Angelica Plummer D.O. Plan of Treatment Future Appointment(s):* 12/13/2021 9:00 am - Angelica Plummer D.O. at [facility] Functional Status Description No Information Available Mental Status Description No Information Available Referrals Description No Information Available
--- OUTSIDE RECORDS SUMMARY | 2021-03-02 06:07 | CCD | Continuity of Care Document ---
Author Author Rut PLUMMER Organization Unknown Address [email or web address] [place] [address] Phone [phone] Care Team Providers Care Forest Ecology Professor Name Role Phone Angelica Plummer D.O. AUTM [phone] Vickie Noble M.D. AUTM [phone] Miguel Angel Malone M.D. AUTM [phone] [facility] Rheumatology AUTM [phone] Problems Active Problems Provider Date Screening mammography [...] smoker Allergies, Adverse Reactions, Alerts Active Allergies Criticality Reaction | Severity Comments Date Penicillins Unable to assess criticality Anaphylaxis 09/21/2014 Sulfa Unable to assess criticality Anaphylaxis 09/21/2014 Medications Active Medications SIG Qnty [...] every morning on an empty stomach Unknown 00/0 Immunizations Description No Information Available Vital Signs Date Vital Result Comment 12/05/2020 8:29am BP Systolic 108 mmHg BP Diastolic 62 mmHg Height 62.50 inches 5'2.50" Weight 185.00 lb BMI (Body Mass Index) 33.3 kg/m2 Heart Rate 85 /min Respiratory Rate 12 /min Body Temperature 96.8 F O2 % BldC Oximetry 99 % [place] Body Weight 110 lb 02/09/2020 8:37am BP Systolic 118 mmHg BP Diastolic 70 mmHg Height 62.50 inches 5'2.50" Weight 162.38 lb BMI (Body Mass Index) 29.2 kg/m2 Heart Rate 86 /min Respiratory Rate 18 /min Body Temperature 99.3 F O2 % BldC Oximetry 97 % [place] Body Weight 110 lb Results Test Acquired Date Facility Test Result H/L Range Note Laboratory test finding 02/15/[address] [address] [phone] Ferritin 168 NG/ML Normal 8-252 CBC With Differential 02/15/[address] [address] [phone] White Blood Count 8.7 10 Normal 4.0-10.0 Red Blood Count 3.99 10 Low 4.00-5.40 Hemoglobin 12.0 g/dL Normal 12.0-15.5 Hematocrit 36.4 % Normal 36.0-47.0 Mean Corpuscular Volume 91.2 fl Normal 80.0-96.0 Mean Corpuscular Hemoglobin 30.1 pg Normal 27.0-33.0 Mean Corpuscular HGB Conc 33.0 g/dL Normal 32.0-36.5 Red Cell Distribution Width 13.7 % Normal 11.5-14.5 Platelet Count, Automated 333 10 Normal 150-450 Neutrophils % 64.9 % Normal 36.0-66.0 Lymph % 23.7 % Low 24.0-44.0 [place] % 5.3 % Normal 2.0-8.0 Eos % 4.4 % High 0.0-3.0 Baso % 0.8 % Normal 0.0-1.0 Immature Granulocyte % 0.9 % Normal 0-3.0 Nucleated Red Blood Cell % 0.0 % Normal 0-0 Neutrophils # 5.6 10 Normal 1.5-8.5 Lymph # 2.1 10 Normal 1.5-5.0 [place] # 0.5 10 Normal 0.0-0.8 Eos # 0.4 10 Normal 0.0-0.5 Baso # 0.1 10 Normal 0.0-0.2 Total Iron Binding Capacit 02/15/[address] [address] [phone] Iron (Fe) 56 g/dL Normal 50-170 Total Iron Binding Capacity 317 g/dL Normal 250-450 Percent Saturation 17.7 % Normal 13.2-45.0 Lipid Panel 02/15/[address] [address] [phone] Triglycerides Level 131 mg/dL Normal <150 Cholesterol Level 198 mg/dL Normal <200 HDL Cholesterol 55 mg/dL Normal >40 LDL Cholesterol 117 mg/dL High <100 Non-HDL-C 143 mg/dL Normal Cholesterol Risk Ratio 3.600 Normal <5 Laboratory test finding 02/15/[address] [address] [phone] Total 25(Oh) Vitamin D 45.2 NG/ML Normal 30.0-100. 0 Comprehensive Metabolic Profil 02/15/[address] [address] [phone] Glucose, Fasting 91 mg/dL Normal 70-100 Blood Urea Nitrogen 21 mg/dL High 7-18 Creatinine For GFR 0.85 mg/dL Normal 0.55-1.30 Glomerular Filtration Rate > 60.0 Normal >51 1 Sodium Level 144 mEq/L Normal 136-145 Potassium Serum 4.6 mEq/L Normal 3.5-5.1 Chloride Level 109 mEq/L High 98-107 Carbon Dioxide Level 30 mEq/L Normal 21-32 Anion Gap 5 mEq/L Low 8-16 Calcium Level 9.3 mg/dL Normal 8.5-10.1 Ast/Sgot 18 U/L Normal 7-37 Alt/SGPT 24 U/L Normal 12-78 Alkaline Phosphatase 111 U/L Normal 45-117 Bilirubin,Total 0.3 mg/dL Normal 0.2-1.0 Total Protein 6.7 GM/DL Normal 6.4-8.2 Albumin 3.6 GM/DL Normal 3.2-5.2 Albumin/Globulin Ratio 1.2 Normal 1.2-2.2 FT4&TSH Panel 02/15/[address] [address] [phone] Thyroid Stimulating Hormone 1.000 uIU/ML Normal 0. 358-3.740 Free T4 1.05 ng/dL Normal 0.76-1.46 Laboratory test finding 02/15/2021 [facility] [address] [place] [address] [phone] Thyroid Peroxidase Antibody 208.7 U/ML High <60. 0 Thyroglobulin Antibody 27.9 U/ML Normal <60.0 Complete Blood Count 02/15/2021 [facility] Outpatient Test ing (Registration) [address] [place] [address] [phone] White Blood Count 8.7 10 Normal 4.0-10.0 Red Blood Count 3.91 10 Low 4.00-5.40 Hemoglobin 11.7 g/dL Low 12.0-15.5 Hematocrit 35.7 % Low 36.0-47.0 Mean Corpuscular Volume 91.3 fl Normal 80.0-96.0 Mean Corpuscular Hemoglobin 29.9 pg Normal 27.0-33.0 Mean Corpuscular HGB Conc 32.8 g/dL Normal 32.0-36.5 Red Cell Distribution Width 13.9 % Normal 11.5-14.5 Platelet Count, Automated 316 10 Normal 150-450 Nucleated Red Blood Cell % 0.0 % Normal 0-0 Comprehensive Metabolic Profil 02/15/2021 [facility] Outpa tient Testing (Registration) [address] [place] [address] [phone] Glucose, Fasting 94 mg/dL Normal 70-100 Blood Urea Nitrogen 22 mg/dL High 7-18 Creatinine For GFR 0.86 mg/dL Normal 0.55-1.30 Glomerular Filtration Rate > 60.0 Normal >51 2 Sodium Level 143 mEq/L Normal 136-145 Potassium Serum 4.5 mEq/L Normal 3.5-5.1 Chloride Level 109 mEq/L High 98-107 Carbon Dioxide Level 30 mEq/L Normal 21-32 Anion Gap 4 mEq/L Low 8-16 Calcium Level 9.5 mg/dL Normal 8.5-10.1 Ast/Sgot 18 U/L Normal 7-37 Alt/SGPT 23 U/L Normal 12-78 Alkaline Phosphatase 110 U/L Normal 45-117 Bilirubin,Total 0.3 mg/dL Normal 0.2-1.0 Total Protein 6.7 GM/DL Normal 6.4-8.2 Albumin 3.5 GM/DL Normal 3.2-5.2 Albumin/Globulin Ratio 1.1 Low 1.2-2.2 FT4&TSH Panel 01/10/2021 [facility] Outpatient Testi ng (Registration) [address] [place] [address] [phone] Thyroid Stimulating Hormone 0.281 uIU/ML Low 0. 358-3.740 Free T4 1.17 ng/dL Normal 0.76-1.46 Laboratory test finding 01/10/2021 [facility] Outpatient T esting (Registration) [address] [place] [phone] Prolactin 20.6 NG/ML Normal 3 Laboratory test finding 10/26/2020 [facility] Outpatient T esting (Registration) [address] [place] [address] [phone] Thyroid Stimulating Hormone 0.125 uIU/ML Low 0. 358-3.740 Free T4 0.99 ng/dL Normal 0.76-1.46 1 Units are mL/min/1.73 m2 Chronic Kidney Disease Staging per NKF: Stage I & II GFR >=60 Normal to Mildly Decreased Stage III GFR 30-59 Moderately Decreased Stage IV GFR 15-29 Severely Decreased Stage V GFR <15 Very Little GFR Left ESRD GFR <15 on WASH RACK OPERATOR 2 Units are mL/min/1.73 m2 Chronic Kidney Disease Staging per NKF: Stage I & II GFR >=60 Normal to Mildly Decreased Stage III GFR 30-59 Moderately Decreased Stage IV GFR 15-29 Severely Decreased Stage V GFR <15 Very Little GFR Left ESRD GFR <15 on WASH RACK OPERATOR 3 Non-: 2.8 - 29. 2 ng/mL : 9.7 - 208.5 ng/mL Post Menopausal: 1.8 - 20.3 ng/mL Procedures Date Code Description Status 12/05/2020 71470 Preventive Visit Est 40-64 Yrs C ompleted 01/27/2020 [id number] Mammogram Completed 12/22/2018 [id number] Mammogram Completed 06/27/2016 [id number] Mammogram Completed Medical Devices Description No Information Available Encounters Type Date Location Provider Dx Diagnosis Office Visit 12/05/2020 8:40a Family Medicine [facility] Haroon Plummer D.O. Z00.00 Encntr for general adult med ical exam w/o abnormal findings D50.9 Iron deficiency anemia, unsp ecified E03.8 Other specified hypothyroidi sm E78.00 Pure hypercholesterolemia, u nspecified E55.9 Vitamin D deficiency, unspec ified Z88.0 Allergy status to penicillin Z88.2 Allergy status to sulfonamid es Z79.899 Other retirement (current) dr martinez therapy Z12.31 Encntr screen mammogram for malignant neoplasm of breast Assessments Date Code Description Provider 12/05/2020 Z00.00 Encounter for genera l adult medical examination without abnormal findings Sharlene Chavez.OTereso 12/05/2020 D50.9 Iron deficiency anemia, unspecif ied Sharlene Chavez.OTereso 12/05/2020 E03.8 Other specified hypothyroidism Sharlene Angeles.OTereso 12/05/2020 E78.00 Pure hypercholesterolemia, unspe cified Sharlene Chavez.OTereso 12/05/2020 E55.9 Vitamin D deficiency, unspecifie d Angelica Plummer D.O. 12/05/2020 Z88.0 Allergy status to penicillin Silvia Sharlene Neal.OTereso 12/05/2020 Z88.2 Allergy status to sulfonamides Sharlene Angeles.OTereso 12/05/2020 Z79.899 Other retirement (current) drug t herapy Raj ChavezOTereso 12/05/2020 Z12.31 Encounter for screen ing mammogram for malignant neoplasm of breast Angelica Plummer D.O. Plan of Treatment Future Appointment(s):* 02/20/2021 9:40 am - Angelica Plummer D.O. at [facility] * 12/13/2021 9:00 am - Angelica Plummer D.O. at [facility] Functional Status Description No Information Available Mental Status Description No Information Available Referrals Description No Information Available
--- OUTSIDE RECORDS SUMMARY | 2021-03-02 06:07 | CCD | Continuity of Care Document ---
Author Author Rut PLUMMER Organization Unknown Address [address] [place] [address] Phone [phone] Care Team Providers Care Gis Database Administrator Name Role Phone Angelica Plummer D.O. AUTM [phone] Vickie Noble M.D. AUTM [phone] Miguel Angel Malone M.D. AUTM [phone] [facility] Rheumatology AUTM [phone] Problems Active Problems Provider Date Screening mammography [...] Plummer D.O. Onse t: 09/21/2014 Obesity Angelica Pulmmer D.O. Onset: 2014 Adult health examination Angelica [...] F O2 % BldC Oximetry 99 % [place] Body Weight 110 lb 02/09/2020 8:37am BP Systolic 118 mmHg BP Diastolic 70 mmHg Height 62.50 inches 5'2.50" Weight 162.38 lb BMI (Body Mass Index) 29.2 kg/m2 Heart Rate 86 /min Respiratory Rate 18 /min Body Temperature 99.3 F O2 % BldC Oximetry 97 % [place] Body Weight 110 lb Results Test Acquired Date Facility Test Result H/L Range Note Laboratory test finding 02/15/[address] [address] [phone] Ferritin <pending> CBC With Differential 02/15/[address] [address] [phone] White Blood Count 8.7 10 Normal 4.0-10.0 [...] 36.0-66.0 Lymph % 23.7 % Low 24.0-44.0 [place] % 5.3 % Normal 2.0-8.0 Eos % 4.4 % High 0.0-3.0 Baso % 0.8 % Normal 0.0-1.0 Immature Granulocyte % 0.9 % Normal 0-3.0 Nucleated Red Blood Cell % 0.0 % Normal 0-0 Neutrophils # 5.6 10 Normal 1.5-8.5 Lymph # 2.1 10 Normal 1.5-5.0 [place] # 0.5 10 Normal 0.0-0.8 Eos # 0.4 10 Normal 0.0-0.5 Baso # 0.1 10 Normal 0.0-0.2 Laboratory test finding 02/15/[address] [address] [phone] Vitamin D 25-Hydroxy <pending> Complete Blood Count 02/15/2021 [facility] Outpatient Test ing (Registration) [address] [place] [address] [phone] White Blood Count 8.7 10 Normal 4.0-10.0 [...] % Normal 0-0 Comprehensive Metabolic Profil 02/15/2021 [facility] Outpa tient Testing (Registration) [address] [place] [address] [phone] Glucose, Fasting 94 mg/dL Normal 70-100 Blood Urea Nitrogen 22 mg/dL High 7-18 Creatinine For GFR 0.86 mg/dL Normal 0.55-1.30 Glomerular Filtration Rate > 60.0 Normal >51 1 Sodium Level 143 mEq/L Normal 136-145 Potassium [...] Ratio 1.1 Low 1.2-2.2 FT4&TSH Panel 01/10/2021 [facility] Outpatient Testi ng (Registration) [address] [place] [address] [phone] Thyroid Stimulating Hormone 0.281 uIU/ML Low 0. 358-3.740 Free T4 1.17 ng/dL Normal 0.76-1.46 Laboratory test finding 01/10/2021 [facility] Outpatient T esting (Registration) [address] [place] [address] [phone] Prolactin 20.6 NG/ML Normal 2 Laboratory test finding 10/26/2020 [facility] Outpatient T esting (Registration) [address] [place] [address] [phone] Thyroid Stimulating Hormone 0.125 uIU/ML Low 0. 358-3.740 Free T4 0.99 ng/dL Normal 0.76-1.46 1 Units are mL/min/1.73 m2 Chronic Kidney Disease Staging per NKF: Stage I & II GFR >=60 Normal to Mildly Decreased Stage III GFR 30-59 Moderately Decreased Stage IV GFR 15-29 Severely Decreased Stage V GFR <15 Very Little GFR Left ESRD GFR <15 on ENGLISH DIVISION CHAIR 2 Non-: 2.8 - 29. 2 ng/mL : 9.7 - 208.5 ng/mL Post Menopausal: 1.8 - 20.3 ng/mL Procedures Date Code Description Status 12/05/2020 58901 Preventive Visit Est 40-64 Yrs C ompleted 01/27/2020 [id number] Mammogram Completed 12/22/2018 [id number] Mammogram Completed 06/27/2016 [id number] Mammogram Completed Medical Devices Description No Information Available Encounters Type Date Location Provider Dx Diagnosis Office Visit 12/05/2020 8:40a Family Medicine [facility] Raj ChavezOTereso Z00.00 Encntr for general adult med ical exam w/o abnormal findings D50.9 Iron deficiency anemia, unsp ecified E03.8 Other specified hypothyroidi sm E78.00 Pure hypercholesterolemia, u nspecified E55.9 Vitamin D deficiency, unspec ified Z88.0 Allergy status to penicillin Z88.2 Allergy status to sulfonamid es Z79.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 12/05/2020 D50.9 Iron deficiency anemia, unspecif ied Raj ChavezOTereso 12/05/2020 E03.8 Other specified hypothyroidism Leidy Plummer D.O. 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 Plan of Treatment Future Appointment(s):* 02/20/2021 9:40 am - Angelica Plummer D.O. at [facility] * 12/13/2021 9:00 am - Angelica Plummer D.O. at [facility] Functional Status Description No Information Available Mental Status Description No Information Available Referrals Description No Information Available
--- OUTSIDE RECORDS SUMMARY | 2021-03-02 06:07 | CCD | Continuity of Care Document ---
Author Organization Unknown Address Unknown Phone Unavailable Care Team Providers Care Material Requisitioner Name Role Phone Angelica Plummer D.O. AUTM Vickie Noble M.D. AUTM [phone] Miguel Angel Malone M.D. AUTM [phone] [facility] Rheumatology AUTM [phone] Problems Active Problems Provider Date Screening mammography Angelica Plummer D.O. Onset: 10/2014 Hypothyroidism Angelica Plummer D.O. Onset: 2014 Tobacco user Angelica Plummer D.O. Onset: 2014 Rosacea Angelica Plummer D.O. Onset: 2014 Acne Angelica Plummer D.O. Onset: 2014 Moderate recurrent major depression aRj Chavez Onset: 09/21/2014 Disorder of anterior pituitary [...] 1 tablet by mouth every night 90tabs Raj ChavezOTereso 08/04/2020 Vitamin D3 Super Strength 2000Unit Capsules 1 by mouth every day 90caps Raj ChavezOTereso 06/27/2016 Multi Complete/Iron Tablets 1 by mouth every day Raj ChavezOTereso 05/17 Ferrous Sulfate ER 1 40(45Fe) mg [...] every morning on an empty stomach Unknown 00/ Immunizations Description No Information Available Vital Signs Date Vital Result Comment 12/05/2020 8:29am BP Systolic 108 mmHg BP Diastolic 62 mmHg Height 62.50 inches 5'2.50" Weight 185.00 lb BMI (Body Mass Index) 33.3 kg/m2 Heart Rate 85 /min Respiratory Rate 12 /min Body Temperature 96.8 F O2 % BldC Oximetry 99 % [place] Body Weight 110 lb 02/09/2020 8:37am BP Systolic 118 mmHg BP Diastolic 70 mmHg Height 62.50 inches 5'2.50" Weight 162.38 lb BMI (Body Mass Index) 29.2 kg/m2 Heart Rate 86 /min Respiratory Rate 18 /min Body Temperature 99.3 F O2 % BldC Oximetry 97 % [place] Body Weight 110 lb Results Test Acquired Date Facility Test Result H/L Range Note FT4&TSH Panel 01/10/2021 [facility] Outpatient Testi ng (Registration) [address] [place] [address] [phone] Thyroid Stimulating Hormone 0.281 uIU/ML Low 0. 358-3.740 Free T4 1.17 ng/dL Normal 0.76-1.46 Laboratory test finding 01/10/2021 [facility] Outpatient T esting (Registration) [address] [place] [address] [phone] Prolactin 20.6 NG/ML Normal 1 Laboratory test finding 10/26/2020 [facility] Outpatient T esting (Registration) [address] [place] [address] [phone] Thyroid Stimulating Hormone 0.125 uIU/ML Low 0. 358-3.740 Free T4 0.99 ng/dL Normal 0.76-1.46 1 Non-: 2.8 - 29. 2 ng/mL : 9.7 - 208.5 ng/mL Post Menopausal: 1.8 - 20.3 ng/mL Procedures Date Code Description Status 12/05/2020 09824 Preventive Visit Est 40-64 Yrs C ompleted 01/27/2020 [id number] Mammogram Completed 12/22/2018 [id number] Mammogram Completed 06/27/2016 [id number] Mammogram Completed Medical Devices Description No Information Available Encounters Type Date Location Provider Dx Diagnosis Office Visit 12/05/2020 8:40a Family Medicine [facility] Angelica Plummer D.O. 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 12/05/2020 D50.9 Iron deficiency anemia, unspecif ied Angelica Plummer D.O. 12/05/2020 E03.8 Other specified hypothyroidism Leidy Plummer D.O. 12/05/2020 E78.00 Pure hypercholesterolemia, unspe cified Angelica Plummer D.O. 12/05/2020 E55.9 Vitamin D deficiency, unspecifie d Angelica Plummer D.O. 12/05/2020 Z88.0 Allergy status to penicillin Silvia eleazar Plummer D.O. 12/05/2020 Z88.2 Allergy status to sulfonamides Leidy Plummer D.O. 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 12/05/2020 Z12.31 Encounter for screen ing mammogram for malignant neoplasm of breast Angelica Plummer D.O. Plan of Treatment Future Appointment(s):* 12/13/2021 9:00 am - Angelica Plummer D.O. at [facility] Functional Status Description No Information Available Mental Status Description No Information Available Referrals Description No Information Available
--- OUTSIDE RECORDS SUMMARY | 2021-03-02 06:07 | CCD | Continuity of Care Document ---
Author Author Rut PLUMMER Organization Unknown Address [address] [place] [address] Phone [phone] Care Team Providers Care Navy Fighter Pilot Name Role Phone Angelica Plummer D.O. AUTM Vickie Noble M.D. AUTM [phone] Miguel Angel Malone M.D. AUTM [phone] [facility] Rheumatology AUTM [phone] Miguel Farah D.P.M. AUTM Problems Active Problems Provider Date Screening mammography [...] is a former smoker Smoking Status Reviewed: 02/20/21 Patient is a former smoker Allergies, Adverse [...] Available Vital Signs Date Vital Result Comment 02/20/2021 9:43am BP Systolic 124 mmHg BP Diastolic 80 mmHg Height 62.50 inches 5'2.50" Weight 183.38 lb BMI (Body Mass Index) 33.0 kg/m2 Heart Rate 82 /min Respiratory Rate 14 /min Body Temperature 98.8 F O2 % BldC Oximetry 98 % [place] Body Weight 110 lb 12/05/2020 8:29am BP Systolic 108 mmHg BP Diastolic 62 mmHg Height 62.50 inches 5'2.50" Weight 185.00 lb BMI (Body Mass Index) 33.3 kg/m2 Heart Rate 85 /min Respiratory Rate 12 /min Body Temperature 96.8 F O2 % BldC Oximetry 99 % [place] Body Weight 110 lb Results Test Acquired Date Facility Test Result H/L Range Note Laboratory test finding 02/15/[address] [address] [phone] Ferritin 168 NG/ML Normal 8-252 CBC With Differential 02/15/[address] [address] [phone] White Blood Count 8.7 10 Normal 4.0-10.0 [...] 36.0-66.0 Lymph % 23.7 % Low 24.0-44.0 [place] % 5.3 % Normal 2.0-8.0 Eos % 4.4 % High 0.0-3.0 Baso % 0.8 % Normal 0.0-1.0 Immature Granulocyte % 0.9 % Normal 0-3.0 Nucleated Red Blood Cell % 0.0 % Normal 0-0 Neutrophils # 5.6 10 Normal 1.5-8.5 Lymph # 2.1 10 Normal 1.5-5.0 [place] # 0.5 10 Normal 0.0-0.8 Eos # 0.4 10 Normal 0.0-0.5 Baso # 0.1 10 Normal 0.0-0.2 Total Iron Binding Capacit 02/15/[address] [address] [phone] Iron (Fe) 56 g/dL Normal 50-170 Total Iron Binding Capacity 317 g/dL Normal 250-450 Percent Saturation 17.7 % Normal 13.2-45.0 Lipid Panel 02/15/2021 [facility] [address] [place] [address] [phone] Triglycerides Level 131 mg/dL Normal <150 Cholesterol Level 198 mg/dL Normal <200 HDL Cholesterol 55 mg/dL Normal >40 LDL Cholesterol 117 mg/dL High <100 Non-HDL-C 143 mg/dL Normal Cholesterol Risk Ratio 3.600 Normal <5 Laboratory test finding 02/15/[address] [address] [phone] Total 25(Oh) Vitamin D 45.2 NG/ML Normal 30.0-100. 0 Comprehensive Metabolic Profil 02/15/[address] [address] [phone] Glucose, Fasting 91 mg/dL Normal 70-100 Blood [...] Ratio 1.2 Normal 1.2-2.2 FT4&TSH Panel 02/15/2021 [facility] [address] [place] [address] [phone] Thyroid Stimulating Hormone 1.000 uIU/ML Normal 0. 358-3.740 Free T4 1.05 ng/dL Normal 0.76-1.46 Laboratory test finding 02/15/[address] [address] [phone] Thyroid Peroxidase Antibody 208.7 U/ML High <60. 0 Thyroglobulin Antibody 27.9 U/ML Normal <60.0 Complete Blood Count 02/15/2021 [facility] Outpatient Test ing (Registration) [address] [place] [address] [phone] White Blood Count 8.7 10 Normal 4.0-10.0 [...] % Normal 0-0 Comprehensive Metabolic Profil 02/15/2021 [facility] Outpa tient Testing (Registration) [address] [place] [address] [phone] Glucose, Fasting 94 mg/dL Normal 70-100 Blood [...] Ratio 1.1 Low 1.2-2.2 FT4&TSH Panel 01/10/2021 [facility] Outpatient Testi ng (Registration) [address] [place] [address] [phone] Thyroid Stimulating Hormone 0.281 uIU/ML Low 0. 358-3.740 Free T4 1.17 ng/dL Normal 0.76-1.46 Laboratory test finding 01/10/2021 [facility] Outpatient T esting (Registration) [address] [place] [address] [phone] Prolactin 20.6 NG/ML Normal 3 Laboratory test finding 10/26/2020 [facility] Outpatient T esting (Registration) [address] [place] [address] [phone] Thyroid Stimulating Hormone 0.125 uIU/ML Low 0. 358-3.740 Free T4 0.99 ng/dL Normal 0.76-1.46 1 Units are mL/min/1.73 m2 Chronic Kidney Disease Staging per NKF: Stage I & II GFR >=60 Normal to Mildly Decreased Stage III GFR 30-59 Moderately Decreased Stage IV GFR 15-29 Severely Decreased Stage V GFR <15 Very Little GFR Left ESRD GFR <15 on SWITCHBOARD MECHANIC 2 Units are mL/min/1.73 m2 Chronic Kidney Disease Staging per NKF: Stage I & II GFR >=60 Normal to Mildly Decreased Stage III GFR 30-59 Moderately Decreased Stage IV GFR 15-29 Severely Decreased Stage V GFR <15 Very Little GFR Left ESRD GFR <15 on SWITCHBOARD MECHANIC 3 Non-: 2.8 - 29. 2 ng/mL : 9.7 - 208.5 ng/mL Post Menopausal: 1.8 - 20.3 ng/mL Procedures Date Code Description Status 02/20/2021 03085 Office/Outpatient Established Lo w MDM 20-29 Min Completed 12/05/2020 13122 Preventive Visit Est 40-64 Yrs C ompleted 01/27/2020 [id number] Mammogram Completed 12/22/2018 [id number] Mammogram Completed 06/27/2016 [id number] Mammogram Completed Medical Devices Description No Information Available Encounters Type Date Location Provider Dx Diagnosis Office Visit 02/20/2021 9:40a [facility] Angeliac Plummer D.O. 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 02/20/2021 D50.9 Iron deficiency anemia, unspecif ied Angelica Plummer D.O. 02/20/2021 E06.3 Autoimmune thyroiditis Angelica Bowens D.O. 02/20/2021 E55.9 Vitamin D deficiency, unspecifie d Angelica Plummer, D.O. 02/20/2021 E78.00 Pure hypercholesterolemia, unspe cified Angelica Plummer, D.O. 02/20/2021 Z88.0 Allergy status to penicillin Silvia eleazar Plummer, D.O. 02/20/2021 Z88.2 Allergy status to sulfonamides Leidy Plummer, D.O. 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 12/05/2020 Z00.00 Encounter for genera l adult medical examination without abnormal findings Angelica Plummer D.O. 12/05/2020 D50.9 Iron deficiency anemia, unspecif ied Raj ChavezOTereso 12/05/2020 E03.8 Other specified hypothyroidism Leidy Plummer D.O. 12/05/2020 E78.00 Pure hypercholesterolemia, unspe cified Raj ChavezOTereso 12/05/2020 E55.9 Vitamin D deficiency, unspecifie d Angelica Plummer D.O. 12/05/2020 Z88.0 Allergy status to penicillin Silvia Plummer D.O. 12/05/2020 Z88.2 Allergy status to sulfonamides Leidy Plummer D.O. 12/05/2020 Z79.899 Other halfway (current) drug t herapy Angelica Plummer D.O. 12/05/2020 Z12.31 Encounter for screen ing mammogram for malignant neoplasm of breast Angelica Plummer D.O. Plan of Treatment Future Appointment(s):* 12/13/2021 9:00 am - Angelica Plummer D.O. at [facility] Functional Status Description No Information Available Mental Status Description No Information Available Referrals Description No Information Available
--- OUTSIDE RECORDS SUMMARY | 2021-03-02 06:07 | CCD | Continuity of Care Document ---
Author Author Rut PLUMMER Organization Unknown Address [address] [place] [address] Phone [phone] Care Team Providers Care Director Acute Name Role Phone Angelica Plummer D.O. AUTM Vickie Noble M.D. AUTM [phone] Miguel Angel Malone M.D. AUTM [phone] [facility] Rheumatology AUTM [phone] Problems Active Problems Provider Date Screening mammography [...] F O2 % BldC Oximetry 99 % [place] Body Weight 110 lb 02/09/2020 8:37am BP Systolic 118 mmHg BP Diastolic 70 mmHg Height 62.50 inches 5'2.50" Weight 162.38 lb BMI (Body Mass Index) 29.2 kg/m2 Heart Rate 86 /min Respiratory Rate 18 /min Body Temperature 99.3 F O2 % BldC Oximetry 97 % [place] Body Weight 110 lb Results Test Acquired Date Facility Test Result H/L Range Note Laboratory test finding 02/15/[address] [address] [phone] Ferritin <pending> CBC With Differential 02/15/[address] [address] [phone] White Blood Count 8.7 10 Normal 4.0-10.0 [...] 36.0-66.0 Lymph % 23.7 % Low 24.0-44.0 [place] % 5.3 % Normal 2.0-8.0 Eos % 4.4 % High 0.0-3.0 Baso % 0.8 % Normal 0.0-1.0 Immature Granulocyte % 0.9 % Normal 0-3.0 Nucleated Red Blood Cell % 0.0 % Normal 0-0 Neutrophils # 5.6 10 Normal 1.5-8.5 Lymph # 2.1 10 Normal 1.5-5.0 [place] # 0.5 10 Normal 0.0-0.8 Eos # 0.4 10 Normal 0.0-0.5 Baso # 0.1 10 Normal 0.0-0.2 Laboratory test finding 02/15/[address] [address] [phone] Vitamin D 25-Hydroxy <pending> Complete Blood Count 02/15/2021 [facility] Outpatient Test ing (Registration) [address] [place] [address] [phone] White Blood Count 8.7 10 Normal 4.0-10.0 [...] Blood Cell % 0.0 % Normal 0-0 FT4&TSH Panel 01/10/2021 [facility] Outpatient Testi ng (Registration) [address] [place] [address] [phone] Thyroid Stimulating Hormone 0.281 uIU/ML Low 0. 358-3.740 Free T4 1.17 ng/dL Normal 0.76-1.46 Laboratory test finding 01/10/2021 [facility] Outpatient T esting (Registration) [address] [place] [address] [phone] Prolactin 20.6 NG/ML Normal 1 Laboratory test finding 10/26/2020 [facility] Outpatient T esting (Registration) [address] [place] [address] [phone] Thyroid Stimulating Hormone 0.125 uIU/ML Low 0. 358-3.740 Free T4 0.99 ng/dL Normal 0.76-1.46 1 Non-: 2.8 - 29. 2 ng/mL : 9.7 - 208.5 ng/mL Post Menopausal: 1.8 - 20.3 ng/mL Procedures Date Code Description Status 12/05/2020 80388 Preventive Visit Est 40-64 Yrs C ompleted 01/27/2020 [id number] Mammogram Completed 12/22/2018 [id number] Mammogram Completed 06/27/2016 [id number] Mammogram Completed Medical Devices Description No Information Available Encounters Type Date Location Provider Dx Diagnosis Office Visit 12/05/2020 8:40a [facility] Angelica Plummer D.O. 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 12/05/2020 D50.9 Iron deficiency anemia, unspecif ied Angelica Plummer D.O. 12/05/2020 E03.8 Other specified hypothyroidism Sharlene Angeles.O. 12/05/2020 E78.00 Pure hypercholesterolemia, unspe cified Angelica Plummer D.O. 12/05/2020 E55.9 Vitamin D deficiency, unspecifie d Angelica Plummer D.O. 12/05/2020 Z88.0 Allergy status to penicillin Silvia eleazar Plummer D.O. 12/05/2020 Z88.2 Allergy status to sulfonamides Sharlene Angeles.O. 12/05/2020 Z79.899 Other terminal carman (current) drug t herapy Angelica Plummer D.O. 12/05/2020 Z12.31 Encounter for screen ing mammogram for malignant neoplasm of breast Angelica Plummer D.O. Plan of Treatment Future Appointment(s):* 02/20/2021 9:40 am - Angelica Plummer D.O. at [facility] * 12/13/2021 9:00 am - Angelica Plummer D.O. at [facility] Functional Status Description No Information Available Mental Status Description No Information Available Referrals Description No Information Available
--- OUTSIDE RECORDS SUMMARY | 2021-03-02 06:07 | CCD | Continuity of Care Document ---
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 Tobacco use Chrissy Lazo DO Onset: 07/06/2015 Substance abuse counseling Chrissy Lazo DO Onset: 06/19 Hypothyroidism Vickie Pena MD Onset: 05/27/2011 Galactorrhea not associated with childbirth BRANDIN Still Onset: 01/24/2011 Social History Type Date Description Comments Sex Unknown Tobacco Use Start: Unknown Patient is a current cigarette smoker, smokes every day Cigarette Use Currently smokes 1-5 Cigarettes Daily ETOH Use Rarely consumes alcohol Tobacco Use Start: Unknown Patient is a current smoker, smo kes every day Smoking Status Reviewed: 07/27/20 Patient is a current smoker, smokes every day Allergies, Adverse Reactions, Alerts Active Allergies Reaction Severity Comments Date sulfa drugs rash 07/31/2009 Penicillin rash 07/31/2009 Medications Active Medications SIG Qnty Indications Ordering Provide r Date Levothyroxine Sodium 150mcg Tablet s 1 by mouth every day 90tabs Vickie Pena MD 11/13/2020 Multi-Vitamin Tablets 1 po q d Unknown Vitamin D (Cholecalciferol) 1000Unit Capsules 2 tabs PO daily Unknown Crestor 10mg Tablets 1 tab PO Q hs Unknown Ferrous Sulfate 325(65Fe) mg Table ts 1 tab PO daily Unknown Immunizations Description No Information Available Vital Signs Date Vital Result Comment 12/29/2020 3:42pm BP Systolic 124 mmHg BP Diastolic 80 mmHg Heart Rate 93 /min Height 63.5 inches 5'3.50" Weight 185.38 lb BMI (Body Mass Index) 32.3 kg/m2 O2 % BldC Oximetry 99 % 07/27/2020 9:53am BP Systolic 108 mmHg BP Diastolic 72 mmHg Heart Rate 96 /min Body Temperature 97.5 F Height 63.5 inches 5'3.50" Weight 177.38 lb BMI (Body Mass Index) 30.9 kg/m2 O2 % BldC Oximetry 98 % Results Test Acquired Date Facility Test Result H/L Range Note Laboratory test finding 12/29/2020 Other Prolactin Level Serum <pending> TSH & Free T4 12/29/2020 Other T4 Free Thyroxine Mass/Vol <pending> Laboratory test finding 10/26/2020 [facility] [address] [place] [address] (315)- - Thyroid Stimulating Hormone 0.125 uIU/ML Low 0.358- 3.740 Free T4 0.99 ng/dL Normal 0.76-1.46 Laboratory test finding 10/26/2020 [facility] [address] [place] [address] (315)- - Erythrocyte Sedimentation Rate 26 mm/hr Normal 0-30 Laboratory test finding 07/20/2020 [facility] [address] [place] [address] (315)- - Prolactin 21.2 NG/ML Normal 1 Thyroid Stimulating Hormone 0.026 uIU/ML Low 0.358-3.740 1 Non-: 2.8 - 29. 2 ng/mL : 9.7 - 208.5 ng/mL Post Menopausal: 1.8 - 20.3 ng/mL Procedures Date Code Description Status 07/27/2020 26732 Office/Outpatient Established Mo d MDM 30-39 Min Completed Medical Devices Description No Information Available Encounters Type Date Location Provider Dx Diagnosis Office Visit 07/27/2020 10:00a DR. Vickie Pena MD E 03.9 Hypothyroidism, unspecified E22.1 Hyperprolactinemia D50.9 Iron deficiency anemia, unsp ecified Assessments Date Code Description Provider 12/29/2020 E03.9 Hypothyroidism, unspecified Blanca Pena MD 12/29/2020 E22.1 Hyperprolactinemia Vickie villarreal MD 12/29/2020 D50.9 Iron deficiency anemia, unspecif ied Vickie Pena MD 07/27/2020 E03.9 Hypothyroidism, unspecified Blanca Pena MD 07/27/2020 E22.1 Hyperprolactinemia Vickie villarreal MD 07/27/2020 D50.9 Iron deficiency anemia, unspecif ied Vickie Pena MD Plan of Treatment 12/29/2020 - Vickie Pena MD* E03.9 Hypothyroidism, unspecified* Comments:* TSH was progressively droppingCurrent medication:Levothyroxine 175 mcg po qd01/20/19- TSH= 0.778, FT4= 1.30- stable 08/04/2019= TSH= 0.277, FT4= 1.24- 02/01/2020 TSH= 0.273, FT4= 1.39 07/20/2020: TSH= 0.026- supressed10/26/2020, TSH = 0.125, free T4 = 0.99, sedimentation rate = 26Dopamine agonists typically inhibit TSH secretion. She is now off of the dopamine agonist so I do not believe the low TSH is at all related to change in treatment for her hyperprolactinemia.Etiology for marked TSH suppression at this time is unclear. * Follow up:* lab, follow up tba * E22.1 Hyperprolactinemia* Comments:* Was on Bromocriptine 2.5 mg daily- stable 06/16/18=5.6 No galactorrhea. Dose decreased to Bromo 2.5 mg every other day 01/20/19- Prolactin level= 9.9- stable08/04/2019- Prolactin level= 7.5- stable01/2020 : d/c bromocriptine07/2020 prolactin= 21- up slightly but still within normal range * D50.9 Iron deficiency anemia, unspecified* Comments:* markedly iron deficiency she states that she had EGD and colonoscopy and both were normal. She has not had her iron level rechecked yet. Functional Status Description No Information Available Mental Status Description No Information Available Referrals Description No Information Available
--- OUTSIDE RECORDS SUMMARY | 2021-03-02 06:07 | CCD | Continuity of Care Document ---
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 Tobacco [...] day Allergies, Adverse Reactions, Alerts Active Allergies Criticality Reaction | Severity Comments Date sulfa drugs Unable to assess criticality rash 07/31/2009 Penicillin Unable to assess criticality rash 07/31/2009 Medications Active Medications SIG Qnty [...] Result H/L Range Note FT4&TSH Panel 01/10/2021 [facility] [address] [place] [address] (315)- - Thyroid Stimulating Hormone 0.281 uIU/ML Low 0.358- 3.740 Free T4 1.17 ng/dL Normal 0.76-1.46 Laboratory test finding 01/10/2021 [facility] [address] [place] [address] (315)- - Prolactin 20.6 NG/ML Normal 1 Laboratory test finding 12/29/2020 Other Prolactin Level Serum <pending> TSH & Free T4 12/29/2020 Other T4 Free Thyroxine Mass/Vol <pending> Laboratory test finding 10/26/2020 [facility] [address] [place] [address] (315)- - Thyroid Stimulating Hormone 0.125 uIU/ML Low 0.358- 3.740 Free T4 0.99 ng/dL Normal 0.76-1.46 Laboratory test finding 10/26/2020 [facility] [address] [place] [address] (315)- - Erythrocyte Sedimentation Rate 26 mm/hr Normal 0-30 Laboratory test finding 07/20/2020 [facility] [address] [place] [address] (315)- - Prolactin 21.2 NG/ML Normal 2 Thyroid Stimulating Hormone 0.026 uIU/ML Low 0.358-3.740 1 Non-: 2.8 - 29. 2 ng/mL : 9.7 - 208.5 ng/mL Post Menopausal: 1.8 - 20.3 ng/mL 2 Non-: 2.8 - 29. 2 ng/mL : 9.7 - 208.5 ng/mL Post Menopausal: 1.8 - 20.3 ng/mL Procedures Date Code Description Status 12/29/2020 10931 Office/Outpatient Established Mo d MDM 30-39 Min Completed 07/27/2020 73636 Office/Outpatient Established Mo d MDM 30-39 Min Completed Medical Devices Description No Information Available Encounters Type Date Location Provider Dx Diagnosis Office Visit 12/29/2020 3:45p DR. Vickie Pena MD E 03.9 Hypothyroidism, unspecified E22.1 Hyperprolactinemia D50.9 Iron deficiency anemia, unsp ecified Office Visit 07/27/2020 10:00a DR. Vickie Pena [...] was progressively droppingCurrent medication:Levothyroxine 175 mcg po qd02/01/2020 TSH= 0.273, FT4= 1.39 07/20/2020: TSH= 0.026- supressed- no changes made10/26/2020, TSH = 0.125, free T4 = 0.99, sedimentation rate = 26Dopamine agonists typically inhibit TSH secretion. Will maintain same dose and recheck TSH again now. * Follow up:* lab, follow up tba * E22.1 Hyperprolactinemia* Comments:* Was on Bromocriptine 2.5 mg daily- stable 06/16/18=5.6 No galactorrhea. Dose decreased to Bromo 2.5 mg every other day 01/20/19- Prolactin level= 9.9- stable08/04/2019- Prolactin level= 7.5- stable01/2020 : d/c bromocriptine07/2020 prolactin= 21- up slightly but still within normal range 12/2020- reports seeing fluid on bra now.Recheck prolactin and consider restart of bromocriptine or cabergoline. * D50.9 Iron deficiency anemia, unspecified* Comments:* markedly iron deficiency she states that she had EGD and colonoscopy and both were normal. She has not had her iron level rechecked yet. Functional Status Description No Information Available Mental Status Description No Information Available Referrals Description No Information Available
--- OUTSIDE RECORDS SUMMARY | 2021-03-02 06:07 | CCD | Continuity of Care Document ---
Author Author Rut PENA MD Organization Unknown Address [address] [facility], [facility] [address] [place] [address] Phone [phone] Care Team Providers Care Legislative Analyst Name Role Phone Angelica Plummer DO AUTM [...] Thyroxine Mass/Vol <pending> Laboratory test finding 10/26/2020 [facility] [address] [place] [address] (315)- - Thyroid Stimulating Hormone 0.125 uIU/ML Low 0.358- 3.740 Free T4 0.99 ng/dL Normal 0.76-1.46 Laboratory test finding 10/26/2020 [facility] [address] [place] [address] (315)- - Erythrocyte Sedimentation Rate 26 mm/hr Normal 0-30 Laboratory test finding 07/20/2020 [facility] [address] [place] [address] (315)- - Prolactin 21.2 NG/ML Normal 1 Thyroid Stimulating Hormone 0.026 uIU/ML Low 0.358-3.740 1 Non-: 2.8 - 29. 2 ng/mL : 9.7 - 208.5 ng/mL Post Menopausal: 1.8 - 20.3 ng/mL Procedures Date Code Description Status 12/29/2020 22036 Office/Outpatient Established Mo d MDM 30-39 Min Completed 07/27/2020 51836 Office/Outpatient Established Mo d MDM 30-39 Min [...]
--- OUTSIDE RECORDS SUMMARY | 2021-03-02 06:07 | CCD | Continuity of Care Document ---
Author Author Rut PLUMMER Organization Unknown Address [address] [place] [address] Phone [phone] Care Team Providers Care Art Supervisor Name Role Phone Angelica Plummer D.O. AUTM Vickie Noble M.D. AUTM [phone] Miguel Angel Malone M.D. AUTM [phone] [facility] AUTM [phone] Miguel Farah D.P.M. AUTM [phone] Problems Active Problems Provider Date Screening mammography [...] F O2 % BldC Oximetry 98 % [place] [facility] Weight 110 lb 12/05/2020 8:29am BP Systolic 108 mmHg BP Diastolic 62 mmHg Height 62.50 inches 5'2.50" Weight 185.00 lb BMI (Body Mass Index) 33.3 kg/m2 Heart Rate 85 /min Respiratory Rate 12 /min Body Temperature 96.8 F O2 % BldC Oximetry 99 % [place] [facility] Weight 110 lb Results Test Acquired Date Facility Test Result H/L Range Note Laboratory test finding 02/15/[address] [address] [phone] Ferritin 168 NG/ML Normal 8-252 CBC With Differential 02/15/[address] [address] [phone] White Blood Count 8.7 10 Normal 4.0-10.0 [...] 36.0-66.0 Lymph % 23.7 % Low 24.0-44.0 Cassia % 5.3 % Normal 2.0-8.0 Eos % 4.4 % High 0.0-3.0 Baso % 0.8 % Normal 0.0-1.0 Immature Granulocyte % 0.9 % Normal 0-3.0 Nucleated Red Blood Cell % 0.0 % Normal 0-0 Neutrophils # 5.6 10 Normal 1.5-8.5 Lymph # 2.1 10 Normal 1.5-5.0 Cassia # 0.5 10 Normal 0.0-0.8 Eos # 0.4 10 Normal 0.0-0.5 Baso # 0.1 10 Normal 0.0-0.2 Total Iron Binding Capacit 02/15/[address] [address] [phone] Iron (Fe) 56 g/dL Normal 50-170 Total Iron Binding Capacity 317 g/dL Normal 250-450 Percent Saturation 17.7 % Normal 13.2-45.0 Lipid Panel 02/15/2021 [facility]ter [address] [place] [address] [phone] Triglycerides Level 131 mg/dL Normal <150 Cholesterol Level 198 mg/dL Normal <200 HDL Cholesterol 55 mg/dL Normal >40 LDL Cholesterol 117 mg/dL High <100 Non-HDL-C 143 mg/dL Normal Cholesterol Risk Ratio 3.600 Normal <5 Laboratory test finding 02/15/[address] [address] [phone] Total 25(Oh) Vitamin D 45.2 NG/ML Normal 30.0-100. 0 Comprehensive Metabolic Profil 02/15/[address] [address] [phone] Glucose, Fasting 91 mg/dL Normal 70-100 Blood [...] Panel 02/15/2021 [facility] [address] [place] [address] [phone] Thyroid Stimulating Hormone 1.000 uIU/ML Normal 0. 358-3.740 Free T4 1.05 ng/dL Normal 0.76-1.46 Laboratory test finding 02/15/[address] [address] [phone] Thyroid Peroxidase Antibody 208.7 U/ML High <60. 0 Thyroglobulin Antibody 27.9 U/ML Normal <60.0 Complete Blood Count 02/15/2021 [facility] Outpatient Test ing (Registration) [address] [place] [address] [phone] White Blood Count 8.7 10 Normal 4.0-10.0 [...] % Normal 0-0 Comprehensive Metabolic Profil 02/15/2021 [facility] Out[facility]ient Testing (Registration) [address] [place] [address] [phone] Glucose, Fasting 94 mg/dL Normal 70-100 Blood [...] Ratio 1.1 Low 1.2-2.2 FT4&TSH Panel 01/10/2021 [facility]i ng (Registration) [address] [place] [address] [phone] Thyroid Stimulating Hormone 0.281 uIU/ML Low 0. 358-3.740 Free T4 1.17 ng/dL Normal 0.76-1.46 Laboratory test finding 01/10/2021 [facility] Out[facility] T esting (Registration) [address] [place] [address] [phone] Prolactin 20.6 NG/ML Normal 3 Laboratory test finding 10/26/2020 [facility] est[facility] (Registration) [address] [place] [address] [phone] Thyroid Stimulating Hormone 0.125 uIU/ML Low 0. 358-3.740 Free T4 0.99 ng/dL Normal 0.76-1.46 1 Units are mL/min/1.73 m2 Chronic Kidney Disease Staging per NKF: Stage I & II GFR >=60 Normal to Mildly Decreased Stage III GFR 30-59 Moderately Decreased Stage IV GFR 15-29 Severely Decreased Stage V GFR <15 Very Little GFR Left ESRD GFR <15 on MACHINE ROOM ENGINEER 2 Units are mL/min/1.73 m2 Chronic Kidney Disease Staging per NKF: Stage I & II GFR >=60 Normal to Mildly Decreased Stage III GFR 30-59 Moderately Decreased Stage IV GFR 15-29 Severely Decreased Stage V GFR <15 Very Little GFR Left ESRD GFR <15 on MACHINE ROOM ENGINEER 3 Non-: 2.8 - 29. 2 ng/mL : 9.7 - 208.5 ng/mL Post Menopausal: 1.8 - 20.3 ng/mL Procedures Date Code Description Status 02/20/2021 34728 Office/Outpatient Established Lo w MDM 20-29 Min Completed 12/05/2020 73880 Preventive Visit Est 40-64 Yrs C ompleted 01/27/2020 36709046 Mammogram Completed 12/22/2018 [id number] Mammogram Completed 06/27/2016 [id number] Mammogram Completed Medical Devices Description No Information Available Encounters Type Date Location Provider Dx Diagnosis Office Visit 02/20/2021 9:40a [facility] Angelica Plummer D.O. 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 02/20/2021 Z79.899 Other terminal manager (current) drug t herapy Raj ChavezO. 12/05/2020 [...] sulfonamides Leidy Plummer D.O. 12/05/2020 Z79.899 [facility] (current[facility] drug t [facility]rapy Angelica Plummer D.O. 12/05/2020 Z12.31 Encounter for screen ing mammogram for malignant neoplasm of breast Angelica Plummer D.O. Plan of Treatment Future Appointment(s):* 12/13/2021 9:00 am - Angelica Plummer D.O. at [facility] Functional Status Description No Information Available Mental Status Description No Information Available Referrals Description No Information Available
--- OUTSIDE RECORDS SUMMARY | 2021-03-02 06:08 | CCD ---
Author Author [facility] Organization [facility] Address Unknown Phone Unavailable Care Team Providers Care Sterilization Technician Name Role Phone Vipul Malone MD Unavailable Unavailable Vipul Malone MD Unavailable Unavailable Vipul Malone MD Unavailable Unavailable Vipul Malone MD Unavailable Unavailable Vipul Malone MD Unavailable Unavailable Vipul Malone MD Unavailable Unavailable Vipul Malone MD Unavailable Unavailable Vipul Malone MD Unavailable Unavailable Vipul Malone MD Unavailable Unavailable Vipul Malone MD Unavailable Unavailable Vipul Malone MD Unavailable Unavailable Vipul Malone MD Unavailable Unavailable Vipul Malone MD Unavailable Unavailable Vipul Malone MD Unavailable Unavailable Vipul Malone MD Unavailable Unavailable Vipul Malone MD Unavailable Unavailable Vipul Malone MD Unavailable Unavailable Vipul Malone MD Unavailable Unavailable Vipul Malone MD Unavailable Unavailable Vipul Malone MD Unavailable Unavailable Vipul Malone MD Unavailable Unavailable Vipul Malone MD Unavailable Unavailable Vipul Malone MD Unavailable Unavailable Vipul Malone MD Unavailable Unavailable Faisal, S Miguel Angel MD Unavailable Unavailable Faisal, S Miguel Angel MD Unavailable Unavailable Faisal, S Miguel Angel MD Unavailable Unavailable Faisal, S Miguel Angel MD Unavailable Unavailable Faisal, S Miguel Angel MD Unavailable Unavailable Faisal, S Miguel Angel MD Unavailable Unavailable Faisal, S Miguel Angel MD Unavailable Unavailable Faisal, S Miguel Angel MD Unavailable Unavailable Faisal, S Miguel Angel MD Unavailable Unavailable Faisal, S Miguel Angel MD Unavailable Unavailable Faisal, S Miguel Angel MD Unavailable Unavailable Faisal, S Miguel Angel MD Unavailable Unavailable Faisal, S Miguel Angel MD Unavailable Unavailable Faisal, S Miguel Angel MD Unavailable Unavailable Faisal, S Miguel Angel MD Unavailable Unavailable Faisal, S Miguel Angel MD Unavailable Unavailable Faisal, S Miguel Angel MD Unavailable Unavailable Faisal, S Miguel Angel MD Unavailable Unavailable Faisal, S Miguel Angel MD Unavailable Unavailable Faisal, S Miguel Angel MD Unavailable Unavailable Faisal, S Miguel Angel MD Unavailable Unavailable Faisal, S Miguel Angel MD Unavailable Unavailable Faisal, S Miguel Angel MD Unavailable Unavailable Faisal, S Miguel Angel MD Unavailable Unavailable Faisal, S Miguel Angel MD Unavailable Unavailable Faisal, S Miguel Angel MD Unavailable Unavailable CRISTIAN-BHARTI, ADELINA DO Unavailable Unavailable CRISTIAN-BHARTI, ADELINA DO Unavailable Unavailable CRISTIAN-BHARTI, ADELINA DO Unavailable Unavailable CRISTIAN-BHARTI, ADELINA DO Unavailable Unavailable CRISTIAN-BHARTI, ADELINA DO Unavailable Unavailable CRISTIAN-BHARTI, ADELINA DO Unavailable Unavailable CRISTIAN-BHARTI, ADELINA DO Unavailable Unavailable CRISTIAN-BHARTI, ADELINA DO Unavailable Unavailable CRISTIAN-BHARTI, ADELINA DO Unavailable Unavailable CRISTIAN-BHARTI, ADELINA DO Unavailable Unavailable CRISTIAN-BHARTI, ADELINA DO Unavailable Unavailable CRISTIAN-BHARTI, ADELINA DO Unavailable Unavailable CRISTIAN-BHARTI, ADELINA DO Unavailable Unavailable CRISTIAN-BHARTI, ADELINA DO Unavailable Unavailable CRISTIAN-BHARTI, ADELINA DO Unavailable Unavailable CRISTIAN-BHARTI, ADELINA DO Unavailable Unavailable CRISTIAN-BHARTI, ADELINA DO Unavailable Unavailable CRISTIAN-BHARTI, ADELINA DO Unavailable Unavailable CRISTIAN-BHARTI, ADELINA DO Unavailable Unavailable CRISTIAN-BHARTI, ADELINA DO Unavailable Unavailable CRISTIAN-BHARTI, ADELINA DO Unavailable Unavailable CRISTIAN-BHARTI, ADELINA DO Unavailable Unavailable CRISTIAN-BHARTI, ADELINA DO Unavailable Unavailable CRISTIAN-BHARTI, ADELINA DO Unavailable Unavailable CRISTIAN-BHARTI, ADELINA DO Unavailable Unavailable CRISTIAN-BHARTI, ADELINA DO Unavailable Unavailable CRISTIAN-BHARTI, ADELINA DO Unavailable Unavailable CRISTIAN-BHARTI, ADELINA DO Unavailable Unavailable CRISTIAN-BHARTI, ADELINA DO Unavailable Unavailable CRISTIAN-BHARTI, ADELINA DO Unavailable Unavailable CRISTIAN-BHARTI, ADELINA DO Unavailable Unavailable CRISTIAN-BHARTI, ADELINA DO Unavailable Unavailable CRISTIAN-BHARTI, ADELINA DO Unavailable Unavailable CRISTIAN-BHARTI, ADELINA DO Unavailable Unavailable CRISTIAN-BHARTI, ADELINA DO Unavailable Unavailable CRISTIAN-BHARTI, ADELINA DO Unavailable Unavailable CRISTIAN-BHARTI, ADELINA DO Unavailable Unavailable CRISTIAN-BHARTI, ADELINA DO Unavailable Unavailable CRISTIAN-BHARTI, ADELINA DO Unavailable Unavailable CRISTIAN-BHARTI, ADELINA DO Unavailable Unavailable CRISTIAN-BHARTI, ADELINA DO Unavailable Unavailable CRISTIAN-BHARTI, ADELINA DO Unavailable Unavailable CRISTIAN-BHATRI, ADELINA DO Unavailable Unavailable CRISTIAN-BHARTI, ADELINA DO Unavailable Unavailable CRISTIAN-BHARIT, ADELINA DO Unavailable Unavailable CRISTIAN-BHARTI, ADELINA DO Unavailable Unavailable CRISTIAN-BHARTI, ADELINA DO Unavailable Unavailable CRISTIAN-BHARTI, ADELINA DO Unavailable Unavailable CRISTIAN-BHARTI, ADELINA DO Unavailable Unavailable CRISTIAN-BHARTI, ADELINA DO Unavailable Unavailable CRISTIAN-BHARTI, ADELINA DO Unavailable Unavailable CRISTIAN-BHARTI, ADELINA DO Unavailable Unavailable CRISTIAN-BHARTI, ADELINA DO Unavailable Unavailable CRISTIAN-BHARTI, ADELINA DO Unavailable Unavailable CRISTIAN-BHARTI, ADELINA DO Unavailable Unavailable CRISTIAN-BHARTI, ADELINA DO Unavailable Unavailable CRISTIAN-BHARTI, ADELINA DO Unavailable Unavailable CRISTIAN-BHARTI, ADELINA DO Unavailable Unavailable CRISTIAN-BHARTI, ADELINA DO Unavailable Unavailable CRISTIAN-BHARTI, ADELINA DO Unavailable Unavailable CRISTIAN-BHARTI, ADELINA DO Unavailable Unavailable CRISTIAN-BHARTI, ADELINA DO Unavailable Unavailable CRISTIAN-BHARTI, ADELINA DO Unavailable Unavailable CRISTIAN-BHARTI, ADELINA DO Unavailable Unavailable CRISTIAN-BHARTI, ADELINA DO Unavailable Unavailable CRISTIAN-BHARTI, ADELINA DO Unavailable Unavailable CRISTIAN-BHARTI, ADELINA DO Unavailable Unavailable CRISTIAN-BHARTI, ADELINA DO Unavailable Unavailable CRISTIAN-BHARTI, ADELINA DO Unavailable Unavailable CRISTIAN-BHARTI, ADELINA DO Unavailable Unavailable CRISTIAN-BHARTI, ADELINA DO Unavailable Unavailable CRISTIAN-BHARTI, ADELINA DO Unavailable Unavailable CRISTIAN-BHARTI, ADELINA DO Unavailable Unavailable CRISTIAN-BHARTI, ADELINA DO Unavailable Unavailable CRISTIAN-BHARTI, ADELINA DO Unavailable Unavailable CRISTIAN-BHARTI, ADELINA DO Unavailable Unavailable CRISTIAN-BHARTI, ADELINA DO Unavailable Unavailable CRISTIAN-BHARTI, ADELINA DO Unavailable Unavailable CRISTIAN-BHARTI, ADELINA DO Unavailable Unavailable CRISTIAN-BHARTI, ADELINA DO Unavailable Unavailable CRISTIAN-BHARTI, ADELINA DO Unavailable Unavailable CRISTIAN-BHARTI, ADELINA DO Unavailable Unavailable CRISTIAN-BHARTI, ADELINA DO Unavailable Unavailable CRISTIAN-BHARTI, ADELINA DO Unavailable Unavailable Willy, Francisco PA Unavailable Unavailable Willy, Francisco PA Unavailable Unavailable Willy, Francisco PA Unavailable Unavailable Willy, Francisco PA Unavailable Unavailable Willy, Francisco PA Unavailable Unavailable Willy, Francisco PA Unavailable Unavailable Willy, Francisco PA Unavailable Unavailable Willy, Francisco PA Unavailable Unavailable Willy, Francisco PA Unavailable Unavailable Willy, Francisco PA Unavailable Unavailable Willy, Francisco PA Unavailable Unavailable Willy, Francisco PA Unavailable Unavailable Willy, Francisco PA Unavailable Unavailable Willy, Francisco PA Unavailable Unavailable Willy, Francisco PA Unavailable Unavailable Willy, Francisco PA Unavailable Unavailable Willy, Francisco PA Unavailable Unavailable Willy, Francisco PA Unavailable Unavailable Willy, Francisco PA Unavailable Unavailable Willy, Francisco PA Unavailable Unavailable Willy, Francisco PA Unavailable Unavailable Willy, Francisco PA Unavailable Unavailable Willy, Francisco PA Unavailable Unavailable Willy, Francisco PA Unavailable Unavailable Willy, Francisco PA Unavailable Unavailable Willy, Francisco PA Unavailable Unavailable Willy, Francisco PA Unavailable Unavailable Willy, Francisco PA Unavailable Unavailable Willy, Francisco PA Unavailable Unavailable Willy, Francisco PA Unavailable Unavailable Willy, Francisco PA Unavailable Unavailable Willy, Francisco PA Unavailable Unavailable Willy, Francisco PA Unavailable Unavailable Willy, Francisco PA Unavailable Unavailable Willy, Francisco PA Unavailable Unavailable Willy, Francisco PA Unavailable Unavailable Willy, Francisco PA Unavailable Unavailable Willy, Francisco PA Unavailable Unavailable Willy, Francisco PA Unavailable Unavailable Willy, Francisco PA Unavailable Unavailable Willy, Francisco PA Unavailable Unavailable Willy, Francisco PA Unavailable Unavailable Willy, Francisco PA Unavailable Unavailable Willy, Francisco PA Unavailable Unavailable Willy, Francisco PA Unavailable Unavailable Willy, Francisco PA Unavailable Unavailable Willy, Francisco PA Unavailable Unavailable Willy, Francisco PA Unavailable Unavailable Willy, Francisco PA Unavailable Unavailable Willy, Francisco PA Unavailable Unavailable Willy, Francisco PA Unavailable Unavailable Willy, Francisco PA Unavailable Unavailable Willy, Francisco PA Unavailable Unavailable Willy, Francisco PA Unavailable Unavailable FishVitaliy MD Unavailable Unavailable Fish, Vitaliy Johnston MD Unavailable Unavailable FishVitaliy MD Unavailable Unavailable FishVitaliy MD Unavailable Unavailable FishVitaliy MD Unavailable Unavailable FishVitaliy MD Unavailable Unavailable FishVitaliy MD Unavailable Unavailable FishVitaliy MD Unavailable Unavailable FishVitaliy MD Unavailable Unavailable FishVitaliy MD Unavailable Unavailable FishVitaliy MD Unavailable Unavailable FishVitaliy MD Unavailable Unavailable FishVitaliy MD Unavailable Unavailable FishVitaliy MD Unavailable Unavailable FishVitaliy MD Unavailable Unavailable FishVitaliy MD Unavailable Unavailable Fish, Vitaliy Johnston MD Unavailable Unavailable FishVitaliy MD Unavailable Unavailable FishVitaliy MD Unavailable Unavailable FishVitaliy MD Unavailable Unavailable FishVitaliy MD Unavailable Unavailable FishVitaliy MD Unavailable Unavailable FishVitaliy MD Unavailable Unavailable FishVitaliy MD Unavailable Unavailable FishVitaliy MD Unavailable Unavailable FishVitaliy MD Unavailable Unavailable FishVitaliy MD Unavailable Unavailable FishVitaliy MD Unavailable Unavailable FishVitaliy MD Unavailable Unavailable FishVitaliy MD Unavailable Unavailable FishVitaliy MD Unavailable Unavailable FishVitaliy MD Unavailable Unavailable FishVitaliy MD Unavailable Unavailable Fish, Vitaliy Johnston MD Unavailable Unavailable FishVitaliy MD Unavailable Unavailable FishVitaliy MD Unavailable Unavailable FishVitaliy MD Unavailable Unavailable FishVitaliy MD Unavailable Unavailable Fish, Vitaliy Johnston MD Unavailable Unavailable Fish, Vitaliy Johnston MD Unavailable Unavailable Fish, B Vickie MD Unavailable Unavailable Fish, B Vickie MD Unavailable Unavailable Fish, B Vickie MD Unavailable Unavailable Fish, B Vickie MD Unavailable Unavailable Fish, B Vickie MD Unavailable Unavailable Fish, B Vickie MD Unavailable Unavailable Fish, B Vickie MD Unavailable Unavailable Fish, B Vickie MD Unavailable Unavailable Fish, B Vickie MD Unavailable Unavailable Fish, B Vickie MD Unavailable Unavailable Fish, B Vickie MD Unavailable Unavailable Fish, B Vickie MD Unavailable Unavailable Fish, B Vickie MD Unavailable Unavailable Fish, B Vickie MD Unavailable Unavailable Fish, B Vickie MD Unavailable Unavailable Fish, B Vickie MD Unavailable Unavailable Fish, B Vickie MD Unavailable Unavailable Fish, B Vickie MD Unavailable Unavailable Fish, B Vickie MD Unavailable Unavailable Fish, B Vickie MD Unavailable Unavailable Fish, B Vickie MD Unavailable Unavailable Fish, B Vickie MD Unavailable Unavailable Fish, B Vickie MD Unavailable Unavailable Fish, B Vickie MD Unavailable Unavailable Fish, B Vickie MD Unavailable Unavailable Re-disclosure Warning The records that you are about to access may contain information from federally-assisted alcohol or drug abuse programs. If such information is present, then the following federally mandated warning applies: This information has been disclosed to you from records protected by federal confidentiality rules (42 CFR part 2). The federal rules prohibit you from making any further disclosure of this information unless further disclosure is expressly permitted by the written consent of the person to whom it pertains or as otherwise permitted by 42 CFR part 2. A general authorization for the release of medical or other information is NOT sufficient for this purpose. The Federal rules restrict any use of the information to criminally investigate or prosecute any alcohol or drug abuse patient.The records that you are about to access may contain highly sensitive health information, the redisclosure of which is protected by Article 27-F of the [facility] Public Health law. If you continue you may have access to information: Regarding HIV / AIDS; Provided by facilities licensed or operated by the [facility] Office of Mental Health; or Provided by the [facility] Office for People With Developmental Disabilities. If such information is present, then the following [facility] mandated warning applies: This information has been disclosed to you from confidential records which are protected by state law. State law prohibits you from making any further disclosure of this information without the specific written consent of the person to whom it pertains, or as otherwise permitted by law. Any unauthorized further disclosure in violation of state law may result in a fine or alf sentence or both. A general authorization for the release of medical or other information is NOT sufficient authorization for further disc losure. Family History Family Member Name Family Member Gender Family Member Status Date o f Status Description Data Source(s) Unknown Male Problem [facility] ([facility]) Unknown Male Problem [facility] ([facility]) Unknown Female Problem [facility] ([facility]) Unknown Female Problem [facility] ([facility]) Unknown Female Problem [facility] ([facility]) Encounters Encounter Providers Location Date Indications Data Source(s ) Outpatient Attender: ADELINA COBIAN [facility] 02/20/2021 09:40:00 AM EDT [facility] ([facility]) Outpatient Attender: Vickie Noble MD Physical Therapy 12/29 03:45:00 PM EDT [facility] ([facility]) Outpatient Attender: ADELINA COBIAN [facility] 12/05/2020 08:40:00 AM EDT [facility] ([facility]) Unknown [address] [facility] [id number] 10/10/2020 12:00:00 AM EDT [facility] Unknown [address] [facility] [id number] 09/22/2020 12:00:00 AM EDT [facility] Outpatient Attender: Vickie Noble MD Physical Therapy 07/27 09:00:00 AM EST [facility] ([facility]) Outpatient [address] [facility] [id number] 03/30/2020 12:00:00 AM EST [facility]CW1 [facility]) Outpatient Attender: Miguel Angel Malone MD Main Office 03/21/2020 10:45:00 AM EST [facility] ([facility]) Outpatient [address] [id number] 03/17/2020 12:00:00 AM EDT [facility]CW1 [facility]) Outpatient Attender: Francisco [facility]D [facility] 02/09/2020 08:40:00 AM EDT [facility] ([facility]) Outpatient Attender: Vickie Noble MD Physical Therapy 02/06 10:00:00 AM EDT [facility] ([facility] Immunizations Vaccine Date Status Description Data Source(s) COVID-19 VACCINE Pfizer 06/01/2020 12:00:00 AM EST completed [facility] Vaccine Series Complete: YESThis Data wa s Submitted to [facility] Via [employer]. COVID-19 VACCINE Pfizer 05/11/2020 12:00:00 AM EST completed [facility] Vaccine Series Complete: NOThis Data was Submitted to [facility] Via [employer]. Medications Medication Brand Name Start Date Product Form Dose Route Admi nistrative Instructions Pharmacy Instructions Status Indications Reaction Description Data Source(s) Escitalopram 20 MG Oral Tablet ESCITALOPRAM OXALATE 02/14/2021 1 2:00:00 AM EDT tablet 90 TAKE ONE TABLET BY MOUTH EVERY E VENING TAKE ONE TABLET BY MOUTH EVERY EVENING SOLD: 02/17/2021 [facility] 25 mg 02/14/2021 12:00:00 AM EDT tablet 90 TAKE ONE TABLET BY MOUTH AT BEDTIME TAKE ONE TABLET BY MOUTH AT BEDTIME SOLD: 02/17/2021 [facility] 24 HR Bupropion Hydrochloride 150 MG Extended Release Oral T ablet BUPROPION HCL 02/14/2021 12:00:00 AM EDT tablet extended release 24 hr 90 TAKE ONE TABLET BY MOUTH EVERY MORNING TAKE ONE TABLET BY MOUTH EVERY MORNING SOLD: 02/17/2021 [facility] 5-325 mg 02/14/2021 12:00:00 AM EDT tablet 20 TAKE ONE TO TWO TABLETS BY MOUTH EVERY 6 HOURS NEEDED FOR POSTOPERATIVE PAIN MAXIMUM DAILY DOSE = 6 TAKE ONE TO TWO TABLETS BY MOUTH EVERY 6 HOURS NEEDED FOR POSTOPERATIVE PAIN MAXIMUM DAILY DOSE = 6 SOLD: 02/17/2021 [facility] 150 mcg 02/12/2021 12:00:00 AM EDT tablet 90 TAKE ONE TABLET BY MOUTH EVERY DAY TAKE ONE TABLET BY MOUTH EVERY DAY SOLD: 02/14/2021 [facility] 5 mg 02/05/2021 12:00:00 AM EDT tablet 90 TAKE ONE TABLET BY MOUTH IN THE EVENING TAKE ONE TABLET BY MOUTH IN THE EVENING SOLD: 02/14/2021 [facility] Escitalopram 20 MG Oral Tablet ESCITALOPRAM OXALATE 11/22/2020 1 2:00:00 AM EDT tablet 90 TAKE ONE TABLET BY MOUTH EVERY E VENING TAKE ONE TABLET BY MOUTH EVERY EVENING SOLD: 11/28/2020 [facility] 24 HR Bupropion Hydrochloride 150 MG Extended Release Oral T ablet BUPROPION HCL 11/22/2020 12:00:00 AM EDT tablet extended release 24 hr 90 TAKE ONE TABLET BY MOUTH EVERY MORNING TAKE ONE TABLET BY MOUTH EVERY MORNING SOLD: 11/28/2020 [facility] 25 mg 11/22/2020 12:00:00 AM EDT tablet 90 TAKE ONE TABLET BY MOUTH AT BEDTIME TAKE ONE TABLET BY MOUTH AT BEDTIME SOLD: 11/28/2020 [facility] 150 mcg 11/14/2020 12:00:00 AM EDT tablet 90 TAKE ONE TABLET BY MOUTH EVERY DAY TAKE ONE TABLET BY MOUTH EVERY DAY SOLD: 11/15/2020 [facility] Levothyroxine Sodium 0.15 MG Oral Tablet Levothyroxine Sodiu m 11/13/2020 12:00:00 AM EDT ORAL active M EDENT ([facility]) 175 mcg 11/08/2020 12:00:00 AM EDT tablet 30 TAKE ONE TABLET BY MOUTH EVERY DAY TAKE ONE TABLET BY MOUTH EVERY DAY SOLD: 11/10/2020 [facility] Clindamycin 150 MG Oral Capsule CLINDAMYCIN HCL 10/26/2020 12:00 :00 AM EDT capsule 8 TAKE FOUR CAPSULES BY MOUTH 1 HO UR PRIOR TO DENTAL PROCEDURE TAKE FOUR CAPSULES BY MOUTH 1 HOUR PRIOR TO DENTAL PROCEDURE SOLD: 11/03/2020 [facility] Amitriptyline Hydrochloride 25 MG Oral Tablet AMITRIPTYLINE HCL 08/29/2020 12:00:00 AM EDT tablet 90 TAKE ONE TABLET BY MOUTH AT BEDTIME TAKE ONE TABLET BY MOUTH AT BEDTIME SOLD: 09/06/2020 [facility] 24 HR Bupropion Hydrochloride 150 MG Extended Release Oral T ablet BUPROPION HCL 08/29/2020 12:00:00 AM EDT tablet extended release 24 hr 90 TAKE ONE TABLET BY MOUTH EVERY MORNING TAKE ONE TABLET BY MOUTH EVERY MORNING SOLD: 09/06/2020 [facility] Escitalopram 20 MG Oral Tablet ESCITALOPRAM OXALATE 08/29/2020 1 2:00:00 AM EDT tablet 90 TAKE ONE TABLET BY MOUTH EVERY E VENING TAKE ONE TABLET BY MOUTH EVERY EVENING SOLD: 09/06/2020 [facility] 5 mg 08/05/2020 12:00:00 AM EDT tablet 90 TAKE 1 TABLET BY MOUTH EVERY NIGHT TAKE 1 TABLET BY MOUTH EVERY NIGHT SOLD: 11/15/2020 [facility] 5 mg 08/05/2020 12:00:00 AM EDT tablet 90 TAKE 1 TABLET BY MOUTH EVERY NIGHT TAKE 1 TABLET BY MOUTH EVERY NIGHT SOLD: 08/15/2020 [facility] Rosuvastatin calcium 5 MG Oral Tablet Rosuvastatin Calcium 0 08/04/2020 12:00:00 AM EDT ORAL active [facility] ([facility]) 24 HR Bupropion Hydrochloride 150 MG Extended Release Oral T ablet BUPROPION HCL 05/30/2020 12:00:00 AM EST tablet extended release 24 hr 90 TAKE ONE TABLET BY MOUTH EVERY MORNING TAKE ONE TABLET BY MOUTH EVERY MORNING SOLD: 06/06/2020 [facility] Amitriptyline Hydrochloride 25 MG Oral Tablet AMITRIPTYLINE HCL 05/30/2020 12:00:00 AM EST tablet 90 TAKE ONE TABLET BY MOUTH AT BEDTIME TAKE ONE TABLET BY MOUTH AT BEDTIME SOLD: 06/06/2020 [facility] Escitalopram 20 MG Oral Tablet ESCITALOPRAM OXALATE 05/30/2020 1 2:00:00 AM EST tablet 90 TAKE ONE TABLET BY MOUTH IN THE EVENING TAKE ONE TABLET BY MOUTH IN THE EVENING SOLD: 06/06/2020 [facility] Suprep Bowel Prep Kit Suprep Bowel Prep Kit 03/21/2020 12:00:00 AM EST active [facility] ([facility]) 17.5-3.13-1.6 gram 03/21/2020 12:00:00 AM EST recon soln 354 USE DIRECTED USE DIRECTED SOLD: 03/31/2020 [facility] Escitalopram 20 MG Oral Tablet ESCITALOPRAM OXALATE 03/07/2020 1 2:00:00 AM EDT tablet 90 TAKE ONE TABLET BY MOUTH EVERY D AY IN THE EVENING TAKE ONE TABLET BY MOUTH EVERY DAY IN THE EVENING SOLD: 03/17/2020 [facility] 24 HR Bupropion Hydrochloride 150 MG Extended Release Oral T ablet BUPROPION HCL 03/07/2020 12:00:00 AM EDT tablet extended release 24 hr 90 TAKE ONE TABLET BY MOUTH EVERY DAY IN THE MORNING TAKE ONE TABLET BY MOUTH EVERY DAY IN MORNING SOLD: 03/17/2020 [facility] Amitriptyline Hydrochloride 25 MG Oral Tablet AMITRIPTYLINE HCL 03/07/2020 12:00:00 AM EDT tablet 90 TAKE ONE TABLET BY MOUTH EVERY DAY AT BEDTIME TAKE ONE TABLET BY MOUTH EVERY DAY AT BEDTIME SOLD: 03/17/2020 [facility] 175 mcg 03/02/2020 12:00:00 AM EDT tablet 90 TAKE ONE TABLET BY MOUTH EVERY DAY TAKE ONE TABLET BY MOUTH EVERY DAY SOLD: 03/04/2020 [facility] 175 mcg 03/02/2020 12:00:00 AM EDT tablet 90 TAKE ONE TABLET BY MOUTH EVERY DAY TAKE ONE TABLET BY MOUTH EVERY DAY SOLD: 06/22/2020 [facility] 20 mg 02/11/2020 12:00:00 AM EDT tablet 14 TAKE TWO TABLETS BY MOUTH EVERY DAY UNTIL GONE WITH FOOD TAKE TWO TABLETS BY MOUTH EVERY DAY UNTI L GONE WITH FOOD SOLD: 02/12/2020 [facility] Prednisone 20 MG Oral Tablet Prednisone 02/11/2020 12:00:00 AM EDT ORAL active [facility] ([facility] 5 mg 02/04/2020 12:00:00 AM EDT tablet 90 TAKE 1 TABLET BY MOUTH EVERY NIGHT TAKE 1 TABLET BY MOUTH EVERY NIGHT SOLD: 05/20/2020 [facility] 5 mg 02/04/2020 12:00:00 AM EDT tablet 90 TAKE 1 TABLET BY MOUTH EVERY NIGHT TAKE 1 TABLET BY MOUTH EVERY NIGHT SOLD: 02/12/2020 [facility] Escitalopram 20 MG Oral Tablet ESCITALOPRAM OXALATE 01/12/2020 1 2:00:00 AM EDT tablet 60 TAKE ONE TABLET BY MOUTH EVERY E VENING TAKE ONE TABLET BY MOUTH EVERY EVENING SOLD: 01/21/2020 [facility] 175 mcg 08/21/2019 12:00:00 AM EDT tablet 90 TAKE ONE TABLET BY MOUTH EVERY DAY TAKE ONE TABLET BY MOUTH EVERY DAY SOLD: 01/03/2020 [facility] Insurance Providers Payer name Policy type / Coverage type Policy ID Covered republican ID Covered republican's relationship to mcintyre Policy [place] Plan Information [employer] [place] 306/806 [id number] SP [id number] [employer] [place] 302/307 [id number] SP [id number] BS [facility] Part B [id number] Self [employer]/307 [id number] SP [id number] [employer] [place] 306/806 [id number] SP [id number] BS [facility] Part B [id number] Self Y [id number] [employer] [place] 302/307 [id number] SP [id number] BS [facility] Part B [id number] Self Y [id number] BS [facility] Part B [id number] Self BS [place] [employer] [id number] Self BS [place] [employer] [id number] Self V [id number] BS [facility] Part B [id number] Self V [id number] BS [facility] Part B [id number] Self V [id number] BS [place] [employer] [id number] Self V [id number] [facility] [employer] [id number] Self VYS [id number] [employer] Blue [employer] P [id number] SELF [id number] [facility] [employer] [id number] Self [id number] [employer] [id number] Annie VYS [id number] [employer] Blue [employer] P [id number] SELF [id number] [facility] [employer] [id number] Self VYS [id number] [facility] [employer] [id number] Self VYS [employer] Blue [employer] P [id number] SELF [id number] [facility] [employer] [id number] Self [employer] Blue [employer] P [id number] SELF [id number] BS [place] [employer] [id number] Self V [id number] [employer] [place] PPO 302/307 [id number] SP [id number] [employer] PI PI BS [place] [employer] [id number] Self BS [place] [employer] [id number] Self V [id number] [employer] B [id number] S VYS BC[employer] [place] 306/806 [id number] SP [id number] [employer] [place] 306/806 [id number] SP [id number] [employer] B [id number] S VYS [id number] Problems, Conditions, and Diagnoses Code Display Name Description Problem Type Effective Dates Data Source(s) 644489865 Anemia Anemia Problem 03/21/2020 12:00:00 AM KINZA SPICER ([facility]) R79.82 [id number] Elevated C-reactive protein (CRP) Prob pily 03/17/2020 12:00:00 AM EDT eCW1 ([facility]) M19.079 [id number] Osteoarthritis of fo ot, unspecified laterality, unspecified osteoarthritis type Problem 03/17/2020 12:00:00 AM EDT eCW1 ([facility]) Surgeries/Procedures Procedure Description Date Indications Data Source(s) OFFICE OUTPATIENT VISIT 15 MINUTES 02/20/2021 12:00:00 AM EDT [facility] ([facility]) OFFICE OUTPATIENT VISIT 25 MINUTES 12/29/2020 12:00:00 AM EDT [facility] ([facility]) PERIODIC PREVENTIVE MED EST PATIENT 40-64YRS 12:00:00 AM EDT [facility] ([facility]) OFFICE OUTPATIENT VISIT 25 MINUTES 07/27/2020 12:00:00 AM EST [facility] ([facility]) UPPER NDSC BIOPSY SINGLE/MULTIPLE 04/10/2020 12:00:00 AM EST [facility] ([facility]) COLONOSCOPY FLX DX W/WO COLLJ SPECIMENS 04/10/2020 12: 00:00 AM EST MED[facility] ([facility]) Mammography (procedure) 01/27/2020 12:00:00 AM EDT [facility] ([facility]) Results ID Date Data Source [id number] 02/15/2021 08:25:00 AM EDT [facility] ([facility]) Name Value Range Interpretation Code Description Data Arleth rce(s) Supporting Document(s) Thyroperoxidase Ab [Units/volume] in Serum or Plasma 208.7 U/ML Above high normal [facility] ([facility]) Thyroglobulin Ab [Units/volume] in Serum or Plasma 27.9 U/ML Normal (applies to non-numeric results) [facility] ([facility]) ID Date Data Source [id number] 02/15/2021 08:25:00 AM EDT [facility] ([facility]) Name Value Range Interpretation Code Description Data Arleth rce(s) Supporting Document(s) Free T4 1.05 ng/dL 0.76-1.46 Normal (applies to non-numeric resul ts) [facility] ([facility]) Thyroid Stimulating Hormone 1.000 uIU/ML 0.358-3.740 Norm al (applies to non- numeric results) [facility] ([facility]) ID Date Data Source [id number] 02/15/2021 08:25:00 AM EDT [facility] ([facility]) Name Value Range Interpretation Code Description Data Arleth rce(s) Supporting Document(s) Glucose, Fasting 91 mg/dL 70-100 Normal (applies to non-numeric results) [facility] ([facility]) Blood Urea Nitrogen 21 mg/dL 7-18 Above high normal [facility] ([facility]) Creatinine For GFR 0.85 mg/dL 0.55-1.30 Normal (applies to non -numeric results) [facility] ([facility]) Glomerular Filtration Rate Laboratory test result Normal (applies to non- numeric results) [facility] ([facility]) <content>Units are mL/min/1.73 m2</content>
<content></content>
<content>Chronic Kidney Disease Staging per NKF:</content>
<content></content>
<content>Stage I & II GFR >=60 Normal to Mildly Decreased</content>
<content>Stage III GFR 30- 59 Moderately Decreased</content>
<content>Stage IV GFR 15-29 Severely Decreased</content>
<content>Stage V GFR <15 Very Little GFR Left</content>
<content>ESRD GFR <15 on [employer] RO[employer] ATTENDANT</content>
<content></content> Chloride Level 109 meq/L 98-107 Above high normal [facility] ([facility]) Potassium Serum 4.6 meq/L 3.5-5.1 Normal (applies to non-numeric results) [facility] ([facility]) Sodium Level 144 meq/L 136-145 Normal (applies to non-numeric res ults) [facility] ([facility]) Carbon Dioxide Level 30 meq/L 21-32 Normal (applies to non-num sarbjit results) [facility] ([facility]) Anion Gap 5 meq/L 8-16 Below low normal [facility] ( [facility]) Ast/Sgot 18 U/L 7-37 Normal (applies to non-numeric resul ts) [facility] ([facility]) Calcium Level 9.3 mg/dL 8.5-10.1 Normal (applies to non-numeric re sults) [facility] ([facility]) Alt/SGPT 24 U/L 12-78 Normal (applies to non-numeric resul ts) [facility] ([facility]) Alkaline Phosphatase 111 U/L 45-117 Normal (applies to non-num sarbjit results) [facility] ([facility]) Bilirubin,Total 0.3 mg/dL 0.2-1.0 Normal (applies to non-numeric results) [facility] ([facility]) Albumin/Globulin Ratio 1.2 1.2-2.2 Normal (applies to non-n umeric results) [facility] ([facility]) Total Protein 6.7 GM/DL 6.4-8.2 Normal (applies to non-numeric re sults) [facility] ([facility]) Albumin 3.6 GM/DL 3.2-5.2 Normal (applies to non-numeric resul ts) [facility] ([facility]) ID Date Data Source [id number] 02/15/2021 08:25:00 AM EDT [facility] ([facility]) Name Value Range Interpretation Code Description Data Arleth rce(s) Supporting Document(s) Calcidiol [Mass/volume] in Serum or Plasma 45.2 ng/mL 30.0- 100.0 Normal (applies to non-numeric results) [facility] ([facility]) ID Date Data Source [id number] 02/15/2021 08:25:00 AM EDT [facility] ([facility]) Name Value Range Interpretation Code Description Data Arleth rce(s) Supporting Document(s) Cholesterol Level 198 mg/dL Normal (applies to non-numeri c results) [facility] ([facility]) LDL Cholesterol 117 mg/dL Above high normal [facility] ([facility]) HDL Cholesterol 55 mg/dL Normal (applies to non-numeric results) [facility] ([facility]) Triglycerides Level 131 mg/dL Normal (applies to non-nume sriram results) [facility] ([facility]) Non-HDL-C 143 mg/dL Normal (applies to non-numeric resul ts) [facility] ([facility]) Cholesterol Risk Ratio 3.600 Normal (applies to non-n umeric results) [facility] ([facility]) ID Date Data Source [id number] 02/15/2021 08:25:00 AM EDT [facility] ([facility]) Name Value Range Interpretation Code Description Data Arleth rce(s) Supporting Document(s) Iron (Fe) 56 ug/dL 50-170 Normal (applies to non-numeric resul ts) [facility] ([facility]) Percent Saturation 17.7 % 13.2-45.0 Normal (applies to non-numer ic results) [facility] ([facility]) Total Iron Binding Capacity 317 ug/dL 250-450 Norm al (applies to non-numeric results) [facility] ([facility]) ID Date Data Source [id number] 02/15/2021 08:25:00 AM EDT [facility] ([facility]) Name Value Range Interpretation Code Description Data Arleth rce(s) Supporting Document(s) White Blood Count 8.7 10 4.0-10.0 Normal (applies to non-numeri c results) [facility] ([facility]) Hemoglobin 12.0 g/dL 12.0-15.5 Normal (applies to non-numeric resul ts) [facility] ([facility]) Red Blood Count 3.99 10 4.00-5.40 Below low normal [facility] ([facility]) Hematocrit 36.4 % 36.0-47.0 Normal (applies to non-numeric resul ts) [facility] ([facility]) Mean Corpuscular HGB Conc 33.0 g/dL 32.0-36.5 Normal (applies to non-numeric results) [facility] ([facility]) Mean Corpuscular Hemoglobin 30.1 pg 27.0-33.0 Norm al (applies to non-numeric results) [facility] ([facility]) Mean Corpuscular Volume 91.2 fl 80.0-96.0 Normal ( applies to non-numeric results) [facility] ([facility]) Neutrophils % 64.9 % 36.0-66.0 Normal (applies to non-numeric re sults) [facility] ([facility]) Red Cell Distribution Width 13.7 % 11.5-14.5 Norm al (applies to non-numeric results) [facility] ([facility]) Platelet Count, Automated 333 10 150-450 Normal (applies to non-numeric results) [facility] ([facility]) Eos % 4.4 % 0.0-3.0 Above high normal [facility] ([facility]) [place] % 5.3 % 2.0-8.0 Normal (applies to non-numeric resul ts) [facility] ([facility]) Lymph % 23.7 % 24.0-44.0 Below low normal [facility] ( [facility]) Baso % 0.8 % 0.0-1.0 Normal (applies to non-numeric resul ts) [facility] ([facility]) Immature Granulocyte % 0.9 % 0-3.0 Normal (applies to non-n umeric results) [facility] ([facility]) Nucleated Red Blood Cell % 0.0 % 0-0 Normal (applies to n on-numeric results) [facility] ([facility]) Lymph # 2.1 10 1.5-5.0 Normal (applies to non-numeric resul ts) [facility] ([facility]) [place] # 0.5 10 0.0-0.8 Normal (applies to non-numeric resul ts) [facility] ([facility]) Neutrophils # 5.6 10 1.5-8.5 Normal (applies to non-numeric re sults) [facility] ([facility]) Eos # 0.4 10 0.0-0.5 Normal (applies to non-numeric resul ts) [facility] ([facility]) Baso # 0.1 10 0.0-0.2 Normal (applies to non-numeric resul ts) [facility] ([facility]) ID Date Data Source [id number] 02/15/2021 08:25:00 AM EDT [facility] ([facility]) Name Value Range Interpretation Code Description Data Arleth rce(s) Supporting Document(s) Ferritin [Mass/volume] in Serum or Plasma 168 ng/mL 8-252 Normal (applies to non-numeric results) [facility] ([facility]) ID Date Data Source [id number] 02/15/2021 08:21:00 AM EDT [facility] ([facility]) Name Value Range Interpretation Code Description Data Arleth rce(s) Supporting Document(s) Blood Urea Nitrogen 22 mg/dL 7-18 Above high normal [facility] ([facility]) Glucose, Fasting 94 mg/dL 70-100 Normal (applies to non-numeric results) [facility] ([facility]) Creatinine For GFR 0.86 mg/dL 0.55-1.30 Normal (applies to non -numeric results) [facility] ([facility]) Glomerular Filtration Rate Laboratory test result Normal (applies to non- numeric results) [facility]) <content>Units are mL/min/1.73 m2</content>
<content></content>
<content>Chronic Kidney Disease Staging per NKF:</content>
<content></content>
<content>Stage I & II GFR >=60 Normal to Mildly Decreased</content>
<content>Stage III GFR 30- 59 Moderately Decreased</content>
<content>Stage IV GFR 15-29 Severely Decreased</content>
<content>Stage V GFR <15 Very Little GFR Left</content>
<content>ESRD GFR <15 on [employer] RO[employer] ATTENDANT</content>
<content></content> Sodium Level 143 meq/L 136-145 Normal (applies to non-numeric res ults) [facility] ([facility]) Chloride Level 109 meq/L 98-107 Above high normal [facility] ([facility]) Potassium Serum 4.5 meq/L 3.5-5.1 Normal (applies to non-numeric results) [facility] ([facility]) Anion Gap 4 meq/L 8-16 Below low normal [facility] ( [facility]) Carbon Dioxide Level 30 meq/L 21-32 Normal (applies to non-num sarbjit results) [facility] ([facility]) Calcium Level 9.5 mg/dL 8.5-10.1 Normal (applies to non-numeric re sults) [facility] ([facility]) Alt/SGPT 23 U/L 12-78 Normal (applies to non-numeric resul ts) [facility] ([facility]) Alkaline Phosphatase 110 U/L 45-117 Normal (applies to non-num sarbjit results) [facility] ([facility]) Ast/Sgot 18 U/L 7-37 Normal (applies to non-numeric resul ts) [facility] ([facility]) Bilirubin,Total 0.3 mg/dL 0.2-1.0 Normal (applies to non-numeric results) [facility] ([facility]) Total Protein 6.7 GM/DL 6.4-8.2 Normal (applies to non-numeric re sults) [facility] ([facility]) Albumin/Globulin Ratio 1.1 1.2-2.2 Below low [facility] Albumin 3.5 GM/DL 3.2-5.2 Normal (applies to non-numeric resul ts) [facility] ([facility]) ID Date Data Source [id number] 02/15/2021 08:21:00 AM EDT [facility] ([facility]) Name Value Range Interpretation Code Description Data Arleth rce(s) Supporting Document(s) White Blood Count 8.7 10 4.0-10.0 Normal (applies to non-numeri c results) [facility] ([facility]) Red Blood Count 3.91 10 4.00-5.40 Below low normal [facility] ([facility]) Mean Corpuscular Volume 91.3 fl 80.0-96.0 Normal ( applies to non-numeric results) [facility] ([facility]) Hematocrit 35.7 % 36.0-47.0 Below low normal [facility] ( [facility]) Hemoglobin 11.7 g/dL 12.0-15.5 Below low normal [facility] ( [facility]) Mean Corpuscular Hemoglobin 29.9 pg 27.0-33.0 Norm al (applies to non-numeric results) [facility] ([facility]) Mean Corpuscular HGB Conc 32.8 g/dL 32.0-36.5 Normal (applies to non-numeric results) [facility] ([facility]) Red Cell Distribution Width 13.9 % 11.5-14.5 Norm al (applies to non-numeric results) [facility] ([facility]) Nucleated Red Blood Cell % 0.0 % 0-0 Normal (applies to n on-numeric results) [facility] ([facility]) Platelet Count, Automated 316 10 150-450 Normal (applies to non-numeric results) [facility] ([facility]) ID Date Data Source [id number] 01/10/2021 07:19:00 AM EDT [facility] ([facility]) Name Value Range Interpretation Code Description Data Arleth rce(s) Supporting Document(s) Prolactin [Mass/volume] in Serum or Plasma 20.6 ng/mL Normal (applies to non- numeric results) [facility] ([facility]) Non-: 2.8 - 29.2 ng/mL : 9.7 - 208.5 ng/mL Post Menopausal: 1.8 - 20.3 ng/mL ID Date Data Source [id number] 01/10/2021 07:19:00 AM EDT [facility] ([facility]) Name Value Range Interpretation Code Description Data Arleth rce(s) Supporting Document(s) Thyroid Stimulating Hormone 0.281 uIU/ML 0.358-3.740 Below low normal [facility] ([facility]) Free T4 1.17 ng/dL 0.76-1.46 Normal (applies to non-numeric resul ts) [facility] ([facility]) ID Date Data Source [id number] 01/10/2021 07:19:00 AM EDT MED[facility] ([facility]) Name Value Range Interpretation Code Description Data Arleth rce(s) Supporting Document(s) Prolactin 20.6 ng/mL [facility] ([facility]) Non-: 2.8 - 29.2 ng/mL : 9.7 - 208.5 ng/mL Post Menopausal: 1.8 - 20.3 ng/mL ID Date Data Source [id number] 01/10/2021 07:19:00 AM EDT [facility] ([facility]) Name Value Range Interpretation Code Description Data Arleth rce(s) Supporting Document(s) Thyroid Stimulating Hormone 0.281 uIU/ML 0.358-3.740 [facility] ([facility]) Free T4 1.17 ng/dL 0.76-1.46 [facility] ([facility]) ID Date Data Source [id number] 12/29/2020 03:52:00 PM EDT [facility] ([facility]) Name Value Range Interpretation Code Description Data Arleth rce(s) Supporting Document(s) Thyroxine (T4) free [Mass/volume] in Serum or Plasma Laboratory christiane t result [facility] ([facility]) ID Date Data Source [id number] 12/29/2020 03:52:00 PM EDT [facility] ([facility]) Name Value Range Interpretation Code Description Data Arleth rce(s) Supporting Document(s) Prolactin Level Serum Laboratory test result [facility] ([facility] ID Date Data Source [id number] 10/26/2020 03:16:00 PM EDT [facility] ([facility]) Name Value Range Interpretation Code Description Data Arleth rce(s) Supporting Document(s) Thyroxine (T4) free [Mass/volume] in Serum or Plasma 0.99 ng/dL 0.76-1.46 Normal (applies to non-numeric results) [facility] ([facility]) Thyrotropin [Units/volume] in Serum or Plasma 0.125 uIU/ML 0. 358-3.740 Below low normal [facility] ([facility]) ID Date Data Source [id number] 10/26/2020 03:16:00 PM EDT [facility] ([facility] Name Value Range Interpretation Code Description Data Arleth rce(s) Supporting Document(s) Thyrotropin [Units/volume] in Serum or Plasma by Detec tion limit <= 0.05 mIU/L 0.125 uIU/ML 0.358-3.740 [facility] ([facility]) Thyroxine (T4) free [Mass/volume] in Serum or Plasma 0.99 ng/dL 0.76- 1.46 [facility] ([facility]) ID Date Data Source [id number] 10/26/2020 03:15:00 PM EDT [facility] ([facility]) Name Value Range Interpretation Code Description Data Arleth rce(s) Supporting Document(s) Erythrocyte sedimentation rate by Westergren method 26 mm/hr 0-30 [facility] ([facility]) ID Date Data Source [id number] 07/20/2020 10:01:00 AM EST [facility] ([facility] Name Value Range Interpretation Code Description Data Arleth rce(s) Supporting Document(s) Thyrotropin [Units/volume] in Serum or Plasma by Detec tion limit <= 0.05 mIU/L 0.026 uIU/ML 0.358-3.740 [facility] ([facility]) Prolactin [Units/volume] in Serum or Plasma by 3rd IS 21.2 ng/mL [facility] ([facility]) Non-: 2.8 - 29.2 ng/mL : 9.7 - 208.5 ng/mL Post Menopausal: 1.8 - 20.3 ng/mL ID Date Data Source [id number] 04/10/2020 10:44:00 AM EST [facility] ([facility]) Name Value Range Interpretation Code Description Data [facility] rce(s) Supporting Document(s) Surgical pathology study Laboratory test result [facility] ([facility]) <content>FINAL DIAGNOSIS</content>
< content></content>
<content>A - Small bowel, biopsy:</content>
<content>Small intestinal mucosa with no significant pathologic changes.</content>
<content>No evidence for celiac disease.</content>
<content></content>
<content>B - Stomach, biopsy:</content>
<content>Gastric mucosa with chronic gastritis and intestinal metaplasia.</content>
<content>No evidence for high-grade dysplasia.</content>
<content>No evidence for H. pylori-like organisms on H&E stain.</content>
<content></content>
<content>C - Esophagus, below Z-line, biopsy:</content>
<content>Junctional mucosa with chronic inflammation.</content>
<content>No evidence for metaplasia or dysplasia.</content>
<content>04/11/2020 - 1535</content>
<content></content>
<content>CLINICAL DIAGNOSIS</content>
<content></content>
<content>Anemia</content>
<c ontent>04/10/2020 - 0</content>
<content></content>
<content>GROSS DIAGNOSIS</content>
<content></content>
<content>A - Received in formalin labeled "small bowel, R/O celiac" consists of</content>
<content> two fragments of chan tissue, 0.4 x 0.3 x 0.2 cm in aggregate. All in</content>
<content>one.</content>
<content></content>
<content>B - Received in formalin labeled "gastric biopsy, R/O H. pylori"</content>
<content>consists of two fragments of chan tissue, 0.3 x 0.2 x0.2 cm in aggregate.</content>
<content>All in one.</content>
<content></content>
<content>C - Received in formalin labeled "biopsy below Z-line, R/O Carranza's"</content>
<content>consists of three fragments of chan tissue, 0.6 x 0.5 x 0.3 cm in</content>
<content>aggregate. All in one.</content>
<content>-SV</content>
<content>04/10/2020 - 0</content>
<content></content>
<content>Signed KRISTA DIANE MD 04/11/2020 1646</content>
<content></content> ID Date Data Source [id number] 04/05/2020 01:10:00 PM EST [facility] Name Value Range Interpretation Code Description Data Arleth rce(s) Supporting Document(s) SARS coronavirus 2 RNA [facility] This lab was ordered by [facility] and reported by [facility]. ID Date Data Source VITAMIN D [id number] 03/30/2020 12:00:00 AM EST eCW1 ([facility]) Name Value Range Interpretation Code Description Data Arleth rce(s) Supporting Document(s) 51.8 30.0-100.0 TOTAL 25(OH) VITAMIN D eC W1 ([facility]) ID Date Data Source ERYTHROCYTE SEDIMENTATION RATE 03/21/2020 02:26:37 AM EST eC W1 ([facility]) Name Value Range Interpretation Code Description Data Arleth rce(s) Supporting Document(s) 115 ERYTHROCYTE SEDIMENTATION RATE eCW1 ([facility]) ID Date Data Source C REACTIVE PROTEIN QUANTITATIV ([facility]) 03/21/2020 02:26 :37 AM EST eCW1 ([facility]) Name Value Range Interpretation Code Description Data Arleth rce(s) Supporting Document(s) 0.50 C REACTIVE PROTEIN QUANTITATIV eCW1 ([facility]) ID Date Data Source [id number] 02/09/2020 11:19:00 AM EDT MEDENT ([facility]) Name Value Range Interpretation Code Description Data Arleth rce(s) Supporting Document(s) Cyclic citrullinated peptide IgG Ab [Units/volume] in Serum or Plasma 2 units 0-19 Normal (applies to non-numeric results) [facility] ([facility]) <content>Negative <20</con tent>
<content>Weak positive 20 - 39</content>
<content>Moderate positive 40 - 59</content>
<content>Strong positive >59</content>
<content></content> Rheumatoid factor [Units/volume] in Serum or Plasma Laboratory t est result Normal (applies to non-numeric results) [facility] ([facility]) ID Date Data Source [id number] 02/09/2020 11:19:00 AM EDT MEDENT ([facility]) Name Value Range Interpretation Code Description Data Arleth rce(s) Supporting Document(s) Lyme Disease IgM Ab Quantitati Laboratory test result 0.00-0.79 Normal (applies to non-numeric results) [facility] ([facility]) <content>Negative <0.80</content >
<content>Equivocal 0.80 - 1.19</content>
<content>Positive >1.19</content>
<content>.</content>
<content>IgM levels may peak at 3-6 weeks post infection, then</content>
<content>gradually decline.</content>
<content></content> Lyme Disease IgG/IgM Antibodie Laboratory test result 0.00-0.90 Normal (applies to non-numeric results) [facility] ([facility]) <content>Negative <0.91</content >
<content>Equivocal 0.91 - 1.09</content>
<content>Positive >1.09</content>
<content></content> ID Date Data Source [id number] 02/09/2020 11:19:00 AM EDT [facility] ([facility]) Name Value Range Interpretation Code Description Data Arleth rce(s) Supporting Document(s) Erythrocyte sedimentation rate by Westergren method 106 mm/hr 0-30 Above high normal [facility] ([facility]) C reactive protein [Mass/volume] in Serum or Plasma by High sensitivity method 10.50 mg/dL 0.00-0.30 Above high normal [facility] ([facility]) ID Date Data Source [id number] 02/09/2020 11:19:00 AM EDT [facility] ([facility]) Name Value Range Interpretation Code Description Data Arleth rce(s) Supporting Document(s) Karen (Hep2) Laboratory test result Normal (applies to non-n umeric results) [facility]) <content>Negative <1:80</content>
<content>Borderline 1:80</content>
<content>Positive >1:80</content>
<content>Performed at: [facility]</content>
<content>[address], [place] [id number]</content>
<content>Head Of Digital Advertising & Integration: Mabel Andrea MD, Phone: [phone]</content>
<content>Performed at: [facility]</content>
<content>[address], [place] [id number]</content>
<content>Head Of Digital Advertising & Integration: Carmela Neely MD, Phone: [phone]</content>
<content></content> ID Date Data Source [id number] 02/01/2020 08:19:00 AM EDT MEDENT ([facility]) Name Value Range Interpretation Code Description Data Arleth rce(s) Supporting Document(s) Calcidiol [Mass/volume] in Serum or Plasma 39.9 ng/mL 30.0-100.0 [facility] ([facility]) Ferritin [Mass/volume] in Serum or Plasma 394 ng/mL 8-252 [facility] ([facility]) ID Date Data Source [id number] 02/01/2020 08:19:00 AM EDT MEDENT ([facility]) Name Value Range Interpretation Code Description Data Arleth rce(s) Supporting Document(s) Free T4 1.39 ng/dL 0.76-1.46 [facility] ([facility]) Thyroid Stimulating Hormone 0.273 uIU/ML 0.358-3.740 [facility] ([facility]) ID Date Data Source [id number] 02/01/2020 08:19:00 AM EDT MED[facility] ([facility]) Name Value Range Interpretation Code Description Data Arleth rce(s) Supporting Document(s) Iron (Fe) 11 ug/dL 50-170 [facility] ([facility]) Percent Saturation 4.2 % 13.2-45.0 [facility] ([facility]) Total Iron Binding Capacity 259 ug/dL 250-450 [facility] ([facility]) ID Date Data Source [id number] 02/01/2020 08:19:00 AM EDT MEDENT ([facility]) Name Value Range Interpretation Code Description Data Arleth rce(s) Supporting Document(s) Cholesterol Level 159 mg/dL [facility]) Triglycerides Level 66 mg/dL [facility]) Non-HDL-C 102 mg/dL [facility] ([facility]) LDL Cholesterol 89 mg/dL [facility] ([facility]) HDL Cholesterol 57 mg/dL [facility] ([facility]) Cholesterol Risk Ratio 2.789 [facility] ([facility]) ID Date Data Source [id number] 02/01/2020 08:19:00 AM EDT MEDENT ([facility]) Name Value Range Interpretation Code Description Data Arleth rce(s) Supporting Document(s) Creatinine For GFR 0.68 mg/dL 0.55-1.30 [facility] ([facility]) Glucose, Fasting 98 mg/dL 70-100 [facility] ([facility]) Blood Urea Nitrogen 19 mg/dL 7-18 [facility] ([facility]) Potassium Serum 3.6 meq/L 3.5-5.1 [facility] ([facility]) Sodium Level 139 meq/L 136-145 [facility] ([facility]) Glomerular Filtration Rate Laboratory test result [facility] ([facility]) <content>Units are mL/min/1.73 m2</content>
<content></content>
<content>Chronic Kidney Disease Staging per NKF:</content>
<content></content>
<content>Stage I & II GFR >=60 Normal to Mildly Decreased</content>
<content>Stage III GFR 30- 59 Moderately Decreased</content>
<content>Stage IV GFR 15-29 Severely Decreased</content>
<content>Stage V GFR <15 Very Little GFR Left</content>
<content>ESRD GFR <15 on [employer] RO[employer] ATTENDANT</content>
<content></content> Chloride Level 109 meq/L 98-107 [facility] ([facility]) Carbon Dioxide Level 25 meq/L 21-32 [facility] ([facility]) Calcium Level 9.0 mg/dL 8.5-10.1 [facility] ([facility]) Anion Gap 5 meq/L 8-16 [facility] ([facility]) Ast/Sgot 16 U/L 7-37 [facility] Alt/SGPT 22 U/L 12-78 [facility] ([facility] Alkaline Phosphatase 112 U/L 45-117 [facility] ( [facility]) Bilirubin,Total 0.2 mg/dL 0.2-1.0 [facility] ([facility]) Total Protein 7.0 GM/DL 6.4-8.2 [facility] ([facility]) Albumin 3.3 GM/DL 3.2-5.2 [facility] ([facility]) Albumin/Globulin Ratio 0.9 1.2-2.2 [facility] ([facility]) ID Date Data Source [id number] 02/01/2020 08:19:00 AM EDT [facility] ([facility]) Name Value Range Interpretation Code Description Data Arleth rce(s) Supporting Document(s) Red Blood Count 4.05 10 4.00-5.40 [facility] ([facility]) White Blood Count 11.7 10 4.0-10.0 [facility] ([facility]) Hemoglobin 11.9 g/dL 12.0-15.5 [facility] ([facility]) Hematocrit 35.9 % 36.0-47.0 [facility] ([facility]) Mean Corpuscular Hemoglobin 29.4 pg 27.0-33.0 [facility] ([facility]) Mean Corpuscular HGB Conc 33.1 g/dL 32.0-36.5 [facility] ([facility]) Mean Corpuscular Volume 88.6 fl 80.0-96.0 M EDENT ([facility]) Red Cell Distribution Width 14.0 % 11.5-14.5 [facility] ([facility]) Platelet Count, Automated 328 10 150-450 [facility] ([facility]) Lymph % 11.8 % 24.0-44.0 [facility] ([facility]) [place] % 7.6 % 0.0-5.0 [facility] ([facility]) Neutrophils % 78.7 % 36.0-66.0 [facility]) Baso % 0.4 % 0.0-1.0 [facility] ([facility]) Eos % 1.1 % 0.0-3.0 [facility] Immature Granulocyte % 0.4 % 0-3.0 [facility] ([facility]) Nucleated Red Blood Cell % 0.0 % 0-0 [facility] ([facility]) Lymph # 1.4 10 1.5-5.0 [facility] ([facility]) Neutrophils # 9.2 10 1.5-8.5 [facility]) [place] # 0.9 10 0.0-0.8 [facility] ([facility]) Baso # 0.1 10 0.0-0.2 [facility] ([facility]) Eos # 0.1 10 0.0-0.5 [facility] ([facility]) ID Date Data Source [id number] 02/01/2020 08:19:00 AM EDT [facility] ([facility]) Name Value Range Interpretation Code Description Data Arleth rce(s) Supporting Document(s) Glucose, Fasting 98 mg/dL 70-100 Normal (applies to non-numeric results) [facility] ([facility]) Blood Urea Nitrogen 19 mg/dL 7-18 Above high normal [facility] ([facility]) Creatinine For GFR 0.68 mg/dL 0.55-1.30 Normal (applies to non -numeric results) [facility] ([facility]) Glomerular Filtration Rate Laboratory test result Normal (applies to non- numeric results) [facility] ([facility]) <content>Units are mL/min/1.73 m2</content>
<content></content>
<content>Chronic Kidney Disease Staging per NKF:</content>
<content></content>
<content>Stage I & II GFR >=60 Normal to Mildly Decreased</content>
<content>Stage III GFR 30- 59 Moderately Decreased</content>
<content>Stage IV GFR 15-29 Severely Decreased</content>
<content>Stage V GFR <15 Very Little GFR Left</content>
<content>ESRD GFR <15 on [employer]ENDANT</content>
<content></content> Sodium Level 139 meq/L 136-145 Normal (applies to non-numeric res ults) [facility] ([facility]) Potassium Serum 3.6 meq/L 3.5-5.1 Normal (applies to non-numeric results) [facility] ([facility]) Chloride Level 109 meq/L 98-107 Above high normal [facility] ([facility]) Anion Gap 5 meq/L 8-16 Below low normal [facility] ( [facility]) Carbon Dioxide Level 25 meq/L 21-32 Normal (applies to non-num sarbjit results) [facility] ([facility]) Alt/SGPT 22 U/L 12-78 Normal (applies to non-numeric resul ts) [facility] ([facility]) Calcium Level 9.0 mg/dL 8.5-10.1 Normal (applies to non-numeric re sults) [facility] ([facility]) Ast/Sgot 16 U/L 7-37 Normal (applies to non-numeric resul ts) [facility] ([facility]) Bilirubin,Total 0.2 mg/dL 0.2-1.0 Normal (applies to non-numeric results) [facility] ([facility]) Alkaline Phosphatase 112 U/L 45-117 Normal (applies to non-num sarbjit results) [facility] ([facility]) Total Protein 7.0 GM/DL 6.4-8.2 Normal (applies to non-numeric re sults) [facility] ([facility]) Albumin/Globulin Ratio 0.9 1.2-2.2 Below low normal [facility] ([facility]) Albumin 3.3 GM/DL 3.2-5.2 Normal (applies to non-numeric resul ts) [facility] ([facility]) ID Date Data Source [id number] 02/01/2020 08:19:00 AM EDT [facility] ([facility]) Name Value Range Interpretation Code Description Data Arleth rce(s) Supporting Document(s) Ferritin [Mass/volume] in Serum or Plasma 394 ng/mL 8-252 Above high normal [facility] ([facility]) Calcidiol [Mass/volume] in Serum or Plasma 39.9 ng/mL 30.0- 100.0 Normal (applies to non-numeric results) [facility] ([facility]) ID Date Data Source [id number] 02/01/2020 08:19:00 AM EDT MED[facility] ([facility]) Name Value Range Interpretation Code Description Data Arleth rce(s) Supporting Document(s) Percent Saturation 4.2 % 13.2-45.0 Below low normal [facility] ([facility]) Iron (Fe) 11 ug/dL 50-170 Below low normal [facility] ( [facility]) Total Iron Binding Capacity 259 ug/dL 250-450 Norm al (applies to non-numeric results) [facility] ([facility]) ID Date Data Source [id number] 02/01/2020 08:19:00 AM EDT [facility] ([facility]) Name Value Range Interpretation Code Description Data Arleth rce(s) Supporting Document(s) White Blood Count 11.7 10 4.0-10.0 Above high normal [facility] ([facility]) Hemoglobin 11.9 g/dL 12.0-15.5 Below low [facility] Red Blood Count 4.05 10 4.00-5.40 Normal (applies to non-numeric results) [facility] ([facility]) Mean Corpuscular Volume 88.6 fl 80.0-96.0 Normal ( applies to non-numeric results) [facility] ([facility]) Mean Corpuscular Hemoglobin 29.4 pg 27.0-33.0 Norm al (applies to non-numeric results) [facility] ([facility]) Hematocrit 35.9 % 36.0-47.0 Below low normal [facility] Platelet Count, Automated 328 10 150-450 Normal (applies to non-numeric results) [facility] ([facility]) Red Cell Distribution Width 14.0 % 11.5-14.5 Norm al (applies to non-numeric results) [facility] ([facility]) Mean Corpuscular HGB Conc 33.1 g/dL 32.0-36.5 Normal (applies to non-numeric results) [facility] ([facility]) [place] % 7.6 % 0.0-5.0 Above high normal [facility] ([facility]) Neutrophils % 78.7 % 36.0-66.0 Above high normal [facility] ([facility]) Lymph % 11.8 % 24.0-44.0 Below low normal [facility] ( [facility]) Eos % 1.1 % 0.0-3.0 Normal (applies to non-numeric resul ts) [facility] ([facility]) Immature Granulocyte % 0.4 % 0-3.0 Normal (applies to non-n umeric results) [facility] ([facility]) Baso % 0.4 % 0.0-1.0 Normal (applies to non-numeric resul ts) [facility] ([facility]) Nucleated Red Blood Cell % 0.0 % 0-0 Normal (applies to n on-numeric results) [facility] ([facility]) Lymph # 1.4 10 1.5-5.0 Below low normal [facility] ( [facility]) Neutrophils # 9.2 10 1.5-8.5 Above high normal [facility] ([facility]) Eos # 0.1 10 0.0-0.5 Normal (applies to non-numeric resul ts) [facility] ([facility]) [place] # 0.9 10 0.0-0.8 Above high normal [facility] ([facility]) Baso # 0.1 10 0.0-0.2 Normal (applies to non-numeric resul ts) [facility] ([facility]) ID Date Data Source [id number] 02/01/2020 08:19:00 AM EDT [facility] ([facility]) Name Value Range Interpretation Code Description Data Arleth rce(s) Supporting Document(s) Triglycerides Level 66 mg/dL Normal (applies to non-nume sriram results) [facility] ([facility]) HDL Cholesterol 57 mg/dL Normal (applies to non-numeric results) [facility] ([facility]) Cholesterol Level 159 mg/dL Normal (applies to non-numeri c results) [facility] ([facility]) LDL Cholesterol 89 mg/dL Normal (applies to non-numeric results) [facility] ([facility]) Non-HDL-C 102 mg/dL Normal (applies to non-numeric resul ts) [facility] ([facility]) Cholesterol Risk Ratio 2.789 Normal (applies to non-n umeric results) [facility] ([facility]) ID Date Data Source [id number] 02/01/2020 08:19:00 AM EDT [facility] ([facility]) Name Value Range Interpretation Code Description Data Arleth rce(s) Supporting Document(s) Thyroid Stimulating Hormone 0.273 uIU/ML 0.358-3.740 Below low normal [facility] ([facility]) Free T4 1.39 ng/dL 0.76-1.46 Normal (applies to non-numeric resul ts) [facility] ([facility]) Procedure Social History Code Duration Value Status Description Data Source(s ) Smoking 02/20/2021 12:00:00 AM EDT - 12/19/2016 12:00:00 AM EDT Patient is a former smoker completed Patient is a former smoker [facility] ([facility]) Smoking 03/30/2020 12:00:00 AM EST Former Smoker completed Former Smoker eCW1 ([facility]) Smoking 03/30/2020 12:00:00 AM EST Former Smoker completed Former Smoker eCW1 ([facility]) Smoking 03/30/2020 12:00:00 AM EST Former Smoker completed Former Smoker eCW1 ([facility]) Smoking 03/17/2020 12:00:00 AM EDT Former Smoker completed Former Smoker eCW1 ([facility]) Vital Signs ID Date Data Source [id number] Name Value Range Interpretation Code Description Data Source(s) Systolic blood pressure 124 mm[Hg] 124 mm[Hg] M EDENT ([facility]) Diastolic blood pressure 80 mm[Hg] 80 mm[Hg] [facility] ([facility]) Body height 62.50 [in_i] 62.50 [in_i] [facility] ([facility]) 5'2.50" Body weight 183.38 [lb_av] 183.38 [lb_av] MEDEN T ([facility]) Body mass index (BMI) [Ratio] 33.0 kg/m2 33.0 k g/m2 [facility] ([facility]) Heart rate 82 /min 82 /min [facility] ([facility]) Respiratory rate 14 /min 14 /min [facility] ( [facility]) Body temperature 98.8 [degF] 98.8 [degF] [facility] ([facility]) Oxygen saturation in Arterial blood by Pulse oximetry 98 % 98 % [facility] ([facility]) [place] body weight 110 [lb_av] 110 [lb_av] MED[facility] T ([facility]) Systolic blood pressure 124 mm[Hg] 124 mm[Hg] M EDENT ([facility]) Heart rate 93 /min 93 /min [facility] ([facility]) Body height 63.5 [in_i] 63.5 [in_i] [facility] ([facility]) 5'3.50" Body weight 185.38 [lb_av] 185.38 [lb_av] MEDEN T ([facility]) Body mass index (BMI) [Ratio] 32.3 kg/m2 32.3 k g/m2 [facility] ([facility]) Oxygen saturation in Arterial blood by Pulse oximetry 99 % 99 % [facility] ([facility]) Diastolic blood pressure 80 mm[Hg] 80 mm[Hg] [facility] ([facility]) Body height 62.50 [in_i] 62.50 [in_i] [facility] ([facility]) 5'2.50" Diastolic blood pressure 62 mm[Hg] 62 mm[Hg] [facility] ([facility]) Body mass index (BMI) [Ratio] 33.3 kg/m2 33.3 k g/m2 [facility] ([facility]) Heart rate 85 /min 85 /min [facility] ([facility]) Respiratory rate 12 /min 12 /min [facility] ( [facility]) Oxygen saturation in Arterial blood by Pulse oximetry 99 % 99 % [facility] ([facility]) Systolic blood pressure 108 mm[Hg] 108 mm[Hg] M EDENT ([facility]) Body weight 185.00 [lb_av] 185.00 [lb_av] MEDEN T ([facility]) Body temperature 96.8 [degF] 96.8 [degF] [facility] ([facility]) [place] body weight 110 [lb_av] 110 [lb_av] MEDEN T ([facility]) Systolic blood pressure 108 mm[Hg] 108 mm[Hg] M EDENT ([facility]) Oxygen saturation in Arterial blood by Pulse oximetry 98 % 98 % [facility] ([facility]) Body height 63.5 [in_i] 63.5 [in_i] [facility] ([facility]) 5'3.50" Body weight 177.38 [lb_av] 177.38 [lb_av] MEDEN T ([facility]) Body mass index (BMI) [Ratio] 30.9 kg/m2 30.9 k g/m2 [facility] ([facility]) Heart rate 96 /min 96 /min [facility] ([facility]) Body temperature 97.5 [degF] 97.5 [degF] [facility] ([facility]) Diastolic blood pressure 72 mm[Hg] 72 mm[Hg] [facility] ([facility]) Body weight 165.8 [lb_av] 165.8 [lb_av] eCW1 ([facility]) Body weight 75.2 kg 75.2 kg eCW1 ([facility]) Body height 63 [in_i] 63 [in_i] eCW1 ([facility]) Body mass index (BMI) [Ratio] 29.37 kg/m2 29.37 kg/m2 eCW1 ([facility]) Heart rate 91 /min 91 /min eCW1 ([facility]) Respiratory rate 18 /min 18 /min eCW1 ([facility]) Body temperature 98.4 [degF] 98.4 [degF] eCW1 ( [facility]) Systolic blood pressure 116 mm[Hg] 116 mm[Hg] e CW1 ([facility]) Diastolic blood pressure 72 mm[Hg] 72 mm[Hg] eCW1 ([facility]) Body height 63 [in_i] 63 [in_i] [facility] ([facility]) 5'3" Systolic blood pressure 131 mm[Hg] 131 mm[Hg] M EDENT ([facility]) Diastolic blood pressure 85 mm[Hg] 85 mm[Hg] [facility] ([facility]) Heart rate 92 /min 92 /min [facility] ([facility]) Body mass index (BMI) [Ratio] 28.3 kg/m2 28.3 k g/m2 [facility] ([facility]) Body weight 72.576 kg 72.576 kg [facility] Body temperature 97.3 [degF] 97.3 [degF] [facility] ([facility]) Body weight 160.00 [lb_av] 160.00 [lb_av] MEDEN T ([facility]) Body weight 160.6 [lb_av] 160.6 [lb_av] eCW1 ([facility]) Body weight 72.8 kg 72.8 kg W1 ([facility]) Body height 63 [in_i] 63 [in_i] eCW1 ([facility]) Body mass index (BMI) [Ratio] 28.45 kg/m2 28.45 kg/m2 W1 ([facility]) Heart rate 93 /min 93 /min W1 ([facility]) Body temperature 98.5 [degF] 98.5 [degF] W1 ( [facility]) Systolic blood pressure 118 mm[Hg] 118 mm[Hg] e CW1 ([facility]) Diastolic blood pressure 78 mm[Hg] 78 mm[Hg] eCW1 ([facility]) Systolic blood pressure 118 mm[Hg] 118 mm[Hg] M EDENT ([facility]) Diastolic blood pressure 70 mm[Hg] 70 mm[Hg] [facility] ([facility]) Body height 62.50 [in_i] 62.50 [in_i] [facility] ([facility]) 5'2.50" Body weight 162.38 [lb_av] 162.38 [lb_av] MEDEN T ([facility]) Body mass index (BMI) [Ratio] 29.2 kg/m2 29.2 k g/m2 [facility] ([facility]) Heart rate 86 /min 86 /min [facility] ([facility]) Respiratory rate 18 /min 18 /min [facility] ( [facility]) Body temperature 99.3 [degF] 99.3 [degF] [facility] ([facility] [facility]) Oxygen saturation in Arterial blood by Pulse oximetry 97 % 97 % [facility]) [place] body weight 110 [lb_av] 110 [lb_av] [facility] ([facility]) Systolic blood pressure 114 mm[Hg] 114 mm[Hg] M [facility] ([facility] ) Oxygen saturation in Arterial blood by Pulse oximetry 99 % 99 % [facility] ([facility]) Diastolic blood pressure 60 mm[Hg] 60 mm[Hg] [facility] ([facility]) Heart rate 81 /min 81 /min [facility] ([facility]) Body height 63.5 [in_i] 63.5 [in_i] [facility] ([facility] ) 5'3.50" Body weight 163.25 [lb_av] 163.25 [lb_av] [facility] T ([facility] ) Body mass index (BMI) [Ratio] 28.5 kg/m2 28.5 k g/m2 [facility] ([facility])
[2021-03-02] MEDS ORDERED: LR 1,000 ML IV ONE (06:30)
[2021-03-02] MEDS ORDERED: MIDAZOLAM INJ 2MG/2ML VIAL (J2250 PER 1MG) As Ordered ONE (06:48)
[2021-03-02] MEDS ORDERED: dexameTHASONE 4 MG/ML 1ML VIAL (J1100 PER 1MG) As Ordered ONE ×3 (06:49→09:17)
[2021-03-02] MEDS ORDERED: PHENYLephrine 500MCG 5ML (100MCG/ML) SYRINGE As Ordered ONE (06:49)
[2021-03-02] MEDS ORDERED: fentaNYL 100 MCG/2 ML INJECTION (J3010) As Ordered ONE ×2 (06:49→10:54)
[2021-03-02] MEDS ORDERED: ePHEDrine SULFATE 25 MG/5 ML(5MG/ML) SYRINGE As Ordered ONE (06:49)
[2021-03-02] MEDS ORDERED: ONDANSETRON 4MG/2ML VIAL As Ordered ONE (06:49)
[2021-03-02] MEDS ORDERED: propofoL 200 MG/20 ML VIAL As Ordered ONE (06:50)
[2021-03-02] MEDS ORDERED: ROCURONIUM BROMIDE 50 MG/5 ML VIAL As Ordered ONE (06:50)
[2021-03-02] MEDS ORDERED: SUGAMMADEX SODIUM 500 MG/5 ML VIAL (BRIDION) As Ordered ONE (06:50)
[2021-03-02] MEDS ORDERED: LIDOCAINE 2% 100MG/5ML SDV (FOR ANES.) As Ordered ONE (06:50)
[2021-03-02] MEDS ORDERED: ACETAMINOPHEN 1000MG 100ML IV BTL (OFIRMEV) (J0131 PER 10MG) As Ordered ONE (06:50)
[2021-03-02] MEDS ORDERED: BUPIVACAINE HCL 0.5% 30 ML VIAL As Ordered ONE (07:16)
[2021-03-02] MEDS ORDERED: LIDOCAINE 2% MDV 20ML VIAL As Ordered ONE (07:16)
[2021-03-02] MEDS ORDERED: NEOSPORIN GU IRRIG 20 ML VIAL As Ordered ONE (07:17)
[2021-03-02] MEDS ORDERED: VANCOMYCIN HCL 1,000 MG, VIAL MATE ADAPTER 1 EACH in NS 250 ML IV ONE (07:20)
[2021-03-02] MEDS ORDERED: ONDANSETRON 4MG/2ML VIAL IV PRN (12:10)
[2021-03-02] MEDS ORDERED: LR 1,000 ML IV SCH (12:10)
[2021-03-02] MEDS ORDERED: fentaNYL 100 MCG/2 ML INJECTION (J3010) IV PRN (12:10)
--- NOTE | 2021-03-02 12:16 | REP ---
INDICATION: 3 VIEW LEFT FOOT COMPARISON: None. TECHNIQUE: AP, lateral, oblique view of the left foot FINDINGS: Examination serves as baseline. Patient is status post surgical fixation at the 1st tarsometatarsal joint and procedures involving 2nd, 3rd, and 4th toes with stabilizing K-wires. IMPRESSION: Baseline postsurgical evaluation. <Electronically signed by Isaias Kulkarni > 03/02/21 [id number]
[2021-03-02 14:10] VITALS: BP 128/78
--- NOTE | 2021-03-02 15:20 | RO ---
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 POSTOPERATIVE DIAGNOSIS: PROCEDURES PERFORMED: 1. Lapiplasty left foot with plate and screw fixation. 2. Shortening 2nd metatarsal osteotomy left foot. 3. Proximal interphalangeal joint arthroplasty with external wire fixation 2nd toe left foot. 4. Proximal interphalangeal joint arthroplasty with external wire fixation 3rd toe left foot. 5. Proximal interphalangeal joint arthroplasty with external wire fixation 4th toe left foot. 6. 3rd metatarsophalangeal joint capsulotomy left foot. 7. 4th metatarsophalangeal joint capsulotomy left foot. SURGEON: Miguel Farah DPM [employer]TELLIGENCE SPECIALIST: None. ANESTHESIA: General anesthesia. ESTIMATED BLOOD LOSS: Less than 10 mL. HEMOSTASIS: Ankle pneumatic tourniquet, first inflation 1 hour 48 minutes, second inflation 1 hour, duration between inflations 21 minutes. HARDWARE UTILIZED: Lapiplasty System and 2.5 mm headless Arthrex screw and 0.045 Radha wires x3. DESCRIPTION OF PROCEDURE: On 03/02/2021 this 60-year-old white female was taken from her hospital room and placed on the operating table in the supine position. Following induction of IV sedation and local regional anesthesia the right lower extremity was prepped and draped in usual aseptic manner. Attention was directed to the patient's right foot. There was noted to be a previous linear cicatrix. The distal margin of this incision was then utilized and the following procedure was performed: LAPIPLASTY, 1ST METATARSAL REGION WITH PLATE AND SCREW FIXATION LEFT FOOT: Attention was directed to the patient's left foot where there was noted to be a recurrent hallux valgus deformity. 3 cm incision was carried out on the distal margin of the incision. Dissection was carried down to the metatarsal head and dissection was carried down where there was a 4 mm cancellous screw which was then removed. The incision was then carried down to the fibular suspensory ligament which was transected and lateral release was performed through the conjoined tendon, releasing the fibular sesamoid. Attention was then directed to the 1st metatarsocuneiform joint where incision was made from the proximal pole of the medial cuneiform to the midshaft of the 1st metatarsal. The incision was then carried down medial to the extensor tendon and linear capsulotomy was performed over the 1st metatarsocuneiform joint. Dissection was carried dorsal and medially exposing the base and flare of the 1st metatarsal. Utilizing sagittal saw the 1st metatarsocuneiform joint was cut allowing free mobilization of the 1st metatarsocuneiform joint. A joystick was then placed through the base of the 1st metatarsal, dorsiflexion on the hallux with rotation to reduce the intermetatarsal angle and utilizing standard Lapiplasty technique the reduction was dialed in with reduction device and fixated. Intraoperative C-arm images revealed appropriate placement of the 1st metatarsal in respect to the cuneiform. Utilizing standard technique with joint seeker and cut guides, cut was made through the 1st metatarsal and medial cuneiform, device was removed, the cut pieces were then removed. The 1st metatarsocuneiform joint was then drilled with 2 mm drill with sleeve. No irrigation was performed. Utilizing the 4.0 autogenous bone graft, utilizing compressing device the reduction was compressed. Intraoperative C-arm images revealed good position of the 1st metatarsal. Utilizing standard technique two threaded K-wires were used for fixation and two plates were placed across the 1st metatarsocuneiform joint, dorsal and medial plate, screws were tightened utilizing the standard gold and magenta screws. Intraoperative C-arm images postoperatively revealed good reduction of the IM angle. The wounds were flushed with copious amounts of dilute Bacitracin, Neomycin and Polymyxin B solution. Tourniquet was deflated. All bleeders as seen after release of the cuff were then electrocoagulated. The wound was closed with 2-0 Monocryl in simple interrupted fashion. The subcutaneous tissues were coapted and maintained using 4-0 Monocryl and skin was coapted and maintained utilizing 4-0 Prolene in simple interrupted type fashion. After 21 minutes of deflation tourniquet was again reinflated. The following procedure was performed: SHORTENING 2ND METATARSAL OSTEOTOMY WITH SCREW FIXATION 2.5 MM X1 LEFT FOOT. Incision was made along the head and neck of the 2nd metatarsal region and linear capsulotomy was performed over the head and neck of the 2nd metatarsal. José Miguel osteotomy was performed at the head of the 2nd metatarsal. It was shortened approximately 4 mm and it was fixated with 2.5 mm screw. The dorsal margin was then rongeured. Good alignment was noted with C-arm imaging. The wound was flushed with copious amounts of Bacitracin, Neomycin and Polymyxin B solution. Following procedure was performed: PROXIMAL INTERPHALANGEAL JOINT ARTHROPLASTY 2ND TOE LEFT FOOT. An incision was made from the proximal interphalangeal joint of the 2nd toe extending laterally in a 45 degree angle across the joint surface and then straight over the metatarsal shaft connecting with the previous incision for the 2nd metatarsal. Dissection was carried down and Z-plasty tendon lengthening was performed of the conjoined tendon of the 2nd toe. The extensor expansion and ryder was released. The toe was noted to be remarkably dislocated at this joint with considerable contracture on the medial structures which were then released. Utilizing a sagittal saw an osteotomy was performed at the level of the anatomical neck of the proximal phalanx and the base of the proximal phalanx. The toe was brought into corrected position and Radha wire was driven through the middle and distal phalanxes. The toe was placed in corrected position and wire was then extended across the 2nd metatarsophalangeal joint. The wound was flushed, extensor tendon was repaired with 3-0 Monocryl suture. Subcutaneous tissues coapted and maintained with 4-0 Monocryl and skin was coapted and maintained with 4-0 Prolene. Attention was then directed to the patient's 3rd toe where the following procedure was performed: PROXIMAL INTERPHALANGEAL JOINT ARTHROPLASTY WITH EXTERNAL WIRE FIXATION 3RD TOE LEFT FOOT. Attention turned to 3rd toe left. Procedure performed on the 2nd toe was now performed on 3rd toe without variation, deletion, only exception being that of anatomical location. There was still a contracture noted of the 3rd metatarsophalangeal joint. Therefore the following procedure was performed. RELEASE 3RD METATARSOPHALANGEAL JOINT LEFT FOOT. Stab incision was placed over the dorsal aspect of the 3rd metatarsophalangeal joint and capsulotomy was performed. This was repaired with 4-0 Prolene suture in simple interrupted type fashion. Attention was then directed to the patient's 4th toe and the following procedure was performed: PROXIMAL INTERPHALANGEAL JOINT ARTHROPLASTY WITH EXTERNAL WIRE FIXATION. Attention was directed to the patient's 4th toe of the left foot and procedure performed on the 2nd toe was now performed on the 4th toe without variation or deletion. The only exception should be that of anatomical location. Attention was then directed to the 4th metatarsophalangeal joint where the procedure performed on the 3rd metatarsophalangeal joint was now performed on the 4th metatarsophalangeal joint without variation or deletion. The only exception being that of anatomical location. Tourniquet was rapidly deflated and dry, sterile dressings applied consisting of Adaptic, 4 x 4s, 4 x 4 splint and Jerardo, Kerlix and boot. Fiberglass cast was applied on the patient's foot with the foot at a right angle to the lower leg. The patient apparently having tolerated the surgical procedure well was taken to the recovery room for further monitoring by the anesthesia department. Postop instructions given upon discharge.
== END 2021-03-02 14:18 | disposition home or self-care (01) ==
LOC: M SDC 06:04
PROVIDERS: ATTEND Podiatrist
DX: M20.12 Hallux valgus (acquired), left foot (principal); M20.42 Other hammer toe(s) (acquired), left foot; M79.672 Pain in left foot; D64.9 Anemia, unspecified; E78.5 Hyperlipidemia, unspecified; E03.9 Hypothyroidism, unspecified; F41.9 Anxiety disorder, unspecified; F32.9 Major depressive disorder, single episode, unspecified; Z88.0 Allergy status to penicillin; Z79.899 Other long term (current) drug therapy; Z87.891 Personal history of nicotine dependence; Z88.2 Allergy status to sulfonamides
CPT/HCPCS: 28270; 28285; 28297; 28308; 73630; 76000; 88300; C1713; J0131; J1100; J2250; J2370; J2405; J3010; J3370

== ENCOUNTER → 2021-03-12 | Outpatient (REF) | payer BC | LOC: M LAB REF 17:29 | PROVIDERS: ATTEND Physician Assistant | DX: N39.0 Urinary tract infection, site not specified (principal) ==

== ENCOUNTER → 2021-05-18 | Outpatient (REF) | LOC: M LABSMTC 13:33 | PROVIDERS: ATTEND Family Medicine | DX: Z20.822 Contact with and (suspected) exposure to COVID-19 (principal) ==

== ENCOUNTER → 2021-11-29 | Outpatient (CLI) | payer BC | LOC: M WHC 10:54 | PROVIDERS: ATTEND Family Medicine | DX: Z12.31 Encounter for screening mammogram for malignant neoplasm of breast (principal) ==

== ENCOUNTER → 2022-01-11 | Outpatient (CLI) | payer BC ==
[2022-01-11 10:45] LABS: BASO # 0.1 10^3/uL (0.0-0.2); EOS # 0.4 10^3/uL (0.0-0.5); EOS % 4.2 % (0.0-3.0); HEMATOCRIT 37.6 % (36.0-47.0); HEMOGLOBIN 12.1 g/dl (12.0-15.5); LYMPH # 2.2 10^3/uL (1.5-5.0); MEAN CORPUSCULAR HEMOGLOBIN 29.7 pg (27.0-33.0); MEAN CORPUSCULAR HGB CONC 32.2 g/dl (32.0-36.5); MEAN CORPUSCULAR VOLUME 92.2 fl (80.0-96.0); MONO # 0.5 10^3/uL (0.0-0.8); MONO % 6.1 % (2.0-8.0); NEUTROPHILS # 5.1 10^3/uL (1.5-8.5); NEUTROPHILS % 61.5 % (36.0-66.0); PLATELET COUNT, AUTOMATED 328 10^3/uL (150-450); RED BLOOD COUNT 4.08 10^6/uL (4.00-5.40); WHITE BLOOD COUNT 8.3 10^3/uL (4.0-10.0)
[2022-01-11 11:24] LABS: ALBUMIN 3.7 GM/DL (3.2-5.2); ALT/SGPT 20 U/L (12-78); BILIRUBIN,TOTAL 0.3 MG/DL (0.2-1.0); BLOOD UREA NITROGEN 16 MG/DL (7-18); CALCIUM LEVEL 9.8 MG/DL (8.8-10.2); CARBON DIOXIDE LEVEL 24 MEQ/L (21-32); CHLORIDE LEVEL 109 MEQ/L (98-107); CHOLESTEROL LEVEL 217 MG/DL (<200); CHOLESTEROL RISK RATIO 3.741 (<5); CREATININE FOR GFR 0.99 MG/DL (0.55-1.30); FERRITIN 146 NG/ML (8-252); GLOMERULAR FILTRATION RATE > 60.0 (>45); GLUCOSE, FASTING 95 MG/DL (70-100); HDL CHOLESTEROL 58 MG/DL (>40); IRON (FE) 41 UG/DL (50-170); LDL CHOLESTEROL 139 MG/DL (<100); NON-HDL-C 159 MG/DL; PERCENT SATURATION 12.7 % (13.2-45.0); POTASSIUM SERUM 4.4 MEQ/L (3.5-5.1); SODIUM LEVEL 139 MEQ/L (136-145); THYROID STIMULATING HORMONE 0.212 uIU/ML (0.358-3.740); TOTAL IRON BINDING CAPACITY 323 UG/DL (250-450); TOTAL PROTEIN 6.8 GM/DL (6.4-8.2); TRIGLYCERIDES LEVEL 100 MG/DL (<150)
[2022-01-11 11:54] LABS: TOTAL 25(OH) VITAMIN D 51.2 NG/ML (30.0-100.0)
== END ==
LOC: M PLALAB 06:47
PROVIDERS: ATTEND Family Medicine
DX: D50.9 Iron deficiency anemia, unspecified (principal); E06.3 Autoimmune thyroiditis; E55.9 Vitamin D deficiency, unspecified; E78.00 Pure hypercholesterolemia, unspecified

== ENCOUNTER 2022-01-17 08:22 | Outpatient (CLI) | payer BC ==
[~2022-01-17] VITALS: Ht 160 cm; Wt 80.9 kg
[2022-01-17] MEDS ORDERED: IRON SUCROSE 500 MG in NS 250 ML OVER 4 HRS IV ONE (08:30)
[2022-01-17 08:49] VITALS: BP 137/77
[2022-01-17 09:45] VITALS: BP 116/65
[2022-01-17 10:45] VITALS: BP 117/68
[2022-01-17 11:45] VITALS: BP 138/75
[2022-01-17 12:57] VITALS: BP 120/72
== END 2022-01-17 13:00 | disposition home or self-care (01) ==
LOC: M INFU 08:22
PROVIDERS: ATTEND Family Medicine
DX: D50.9 Iron deficiency anemia, unspecified (principal); Z88.0 Allergy status to penicillin; Z88.2 Allergy status to sulfonamides
CPT/HCPCS: 96365; 96366; J1756

== ENCOUNTER → 2022-02-22 | Outpatient (CLI) | payer BC ==
[2022-02-22 11:00] LABS: CHOLESTEROL RISK RATIO 2.983 (<5); FREE T4 1.16 NG/DL (0.76-1.46); THYROID STIMULATING HORMONE 0.379 uIU/ML (0.358-3.740)
== END ==
LOC: M PLALAB 06:42
PROVIDERS: ATTEND Family Medicine
DX: E06.3 Autoimmune thyroiditis (principal); E78.00 Pure hypercholesterolemia, unspecified

== ENCOUNTER → 2022-03-11 | Outpatient (CLI) | payer BC | LOC: M WHC 14:58 | PROVIDERS: ATTEND Physician Assistant | DX: N64.4 Mastodynia (principal); N60.01 Solitary cyst of right breast; N60.02 Solitary cyst of left breast | CPT/HCPCS: 76642; 77066; G0279 ==

== ENCOUNTER → 2022-05-27 | Outpatient (CLI) | payer BC ==
[2022-05-27 14:52] LABS: BASO # 0.1 10^3/uL (0.0-0.2); BASO % 0.7 % (0.0-1.0); EOS # 0.3 10^3/uL (0.0-0.5); EOS % 2.1 % (0.0-3.0); HEMATOCRIT 36.4 % (36.0-47.0); HEMOGLOBIN 11.5 g/dl (12.0-15.5); LYMPH % 25.3 % (24.0-44.0); MEAN CORPUSCULAR HEMOGLOBIN 29.9 pg (27.0-33.0); MEAN CORPUSCULAR HGB CONC 31.6 g/dl (32.0-36.5); MEAN CORPUSCULAR VOLUME 94.8 fl (80.0-96.0); MONO # 0.8 10^3/uL (0.0-0.8); MONO % 6.5 % (2.0-8.0); NEUTROPHILS # 7.8 10^3/uL (1.5-8.5); NEUTROPHILS % 65.1 % (36.0-66.0); PLATELET COUNT, AUTOMATED 358 10^3/uL (150-450); RED BLOOD COUNT 3.84 10^6/uL (4.00-5.40)
[2022-05-27 15:36] LABS: PERCENT SATURATION 7.3 % (13.2-45.0)
[2022-05-27 15:42] LABS: FERRITIN 209.1 NG/ML (7.3-270.7)
== END ==
LOC: M PLALAB 11:25
PROVIDERS: ATTEND Family Medicine
DX: D50.9 Iron deficiency anemia, unspecified (principal)

== ENCOUNTER 2022-06-04 10:12 | Outpatient (CLI) | payer BC ==
[~2022-06-04] VITALS: Ht 157.5 cm; Wt 73.0 kg
[~2022-06-04 10:12] MED LIST changes: +IRON SUCROSE 500 MG in NS 250 ML OVER 4 HRS IV ONE
[2022-06-04 10:40] VITALS: BP 146/81
[2022-06-04 11:30] VITALS: BP 131/72
[2022-06-04 12:30] VITALS: BP 119/72
[2022-06-04 15:00] VITALS: BP 132/79
== END 2022-06-04 15:00 | disposition home or self-care (01) ==
LOC: M INFU 10:12
PROVIDERS: ATTEND Family Medicine
DX: D50.9 Iron deficiency anemia, unspecified (principal); Z88.0 Allergy status to penicillin; Z88.2 Allergy status to sulfonamides
CPT/HCPCS: 96365; 96366; J1756

== ENCOUNTER → 2022-08-01 | Outpatient (CLI) | payer BC ==
[~2022-08-01] MED LIST changes: -IRON SUCROSE 500 MG in NS 250 ML OVER 4 HRS IV ONE; +LIDOCAINE 1% MDV 20ML VIAL As Ordered ONE; +NOXI1TAB PO
[2022-08-01 08:10] VITALS: BP 153/90
[2022-08-01 09:39] LABS: BASO # 0.1 10^3/uL (0.0-0.2); BASO % 0.8 % (0.0-1.0); EOS # 0.2 10^3/uL (0.0-0.5); EOS % 1.8 % (0.0-3.0); HEMATOCRIT 36.9 % (36.0-47.0); HEMOGLOBIN 12.3 g/dl (12.0-15.5); LYMPH # 2.8 10^3/uL (1.5-5.0); LYMPH % 25.1 % (24.0-44.0); MEAN CORPUSCULAR HEMOGLOBIN 30.6 pg (27.0-33.0); MEAN CORPUSCULAR HGB CONC 33.3 g/dl (32.0-36.5); MEAN CORPUSCULAR VOLUME 91.8 fl (80.0-96.0); MONO # 0.7 10^3/uL (0.0-0.8); NEUTROPHILS # 7.2 10^3/uL (1.5-8.5); NEUTROPHILS % 65.8 % (36.0-66.0); PLATELET COUNT, AUTOMATED 430 10^3/uL (150-450); RED BLOOD COUNT 4.02 10^6/uL (4.00-5.40)
== END ==
LOC: M IRPRO 08:01
PROVIDERS: ATTEND Specialist
DX: D50.9 Iron deficiency anemia, unspecified (principal)

== ENCOUNTER → 2022-09-02 | Outpatient (REF) | payer BC ==
[~2022-09-02] MED LIST changes: -LIDOCAINE 1% MDV 20ML VIAL As Ordered ONE
== END ==
LOC: M LAB REF 17:09
PROVIDERS: ATTEND Internal Medicine
DX: R30.0 Dysuria (principal)

== ENCOUNTER → 2022-09-12 | Outpatient (CLI) | payer BC ==
[2022-09-12 14:49] LABS: BASO # 0.1 10^3/uL (0.0-0.2); BASO % 0.9 % (0.0-1.0); EOS # 0.3 10^3/uL (0.0-0.5); EOS % 3.1 % (0.0-3.0); HEMATOCRIT 37.5 % (36.0-47.0); HEMOGLOBIN 12.1 g/dl (12.0-15.5); LYMPH # 3.7 10^3/uL (1.5-5.0); LYMPH % 34.8 % (24.0-44.0); MEAN CORPUSCULAR HEMOGLOBIN 30.2 pg (27.0-33.0); MEAN CORPUSCULAR HGB CONC 32.3 g/dl (32.0-36.5); MEAN CORPUSCULAR VOLUME 93.5 fl (80.0-96.0); MONO # 0.8 10^3/uL (0.0-0.8); MONO % 7.1 % (2.0-8.0); NEUTROPHILS # 5.7 10^3/uL (1.5-8.5); NEUTROPHILS % 53.9 % (36.0-66.0); PLATELET COUNT, AUTOMATED 367 10^3/uL (150-450); RED BLOOD COUNT 4.01 10^6/uL (4.00-5.40); WHITE BLOOD COUNT 10.6 10^3/uL (4.0-10.0)
[2022-09-12 15:23] LABS: ALBUMIN 3.9 G/DL (3.2-5.2); ALKALINE PHOSPHATASE 134 U/L (46-116); ALT/SGPT 18 U/L (7.0-40); AST/SGOT 21 U/L (<34); BILIRUBIN,TOTAL 0.2 MG/DL (0.3-1.2); BLOOD UREA NITROGEN 15 MG/DL (9-23); CALCIUM LEVEL 10.5 MG/DL (8.3-10.6); CARBON DIOXIDE LEVEL 29 MMOL/L (20-31); CHLORIDE LEVEL 105 MMOL/L (98-107); CREATININE FOR GFR 0.96 MG/DL (0.55-1.30); GLOMERULAR FILTRATION RATE > 60.0 (>45); GLUCOSE, FASTING 83 MG/DL (74-106); POTASSIUM SERUM 4.6 MMOL/L (3.5-5.1); SODIUM LEVEL 142 MMOL/L (136-145); TOTAL PROTEIN 7.1 G/DL (5.7-8.2)
== END ==
LOC: M PLALAB 11:40
PROVIDERS: ATTEND Specialist
DX: D64.9 Anemia, unspecified (principal)

== ENCOUNTER → 2022-12-25 | Outpatient (CLI) | payer BC ==
[2022-12-25 11:08] LABS: BASO # 0.1 10^3/uL (0.0-0.2); EOS # 0.3 10^3/uL (0.0-0.5); EOS % 3.5 % (0.0-3.0); HEMATOCRIT 37.3 % (36.0-47.0); HEMOGLOBIN 12.3 g/dl (12.0-15.5); LYMPH # 2.4 10^3/uL (1.5-5.0); LYMPH % 31.2 % (24.0-44.0); MEAN CORPUSCULAR HEMOGLOBIN 30.3 pg (27.0-33.0); MEAN CORPUSCULAR VOLUME 91.9 fl (80.0-96.0); MONO # 0.5 10^3/uL (0.0-0.8); MONO % 6.3 % (2.0-8.0); NEUTROPHILS # 4.4 10^3/uL (1.5-8.5); NEUTROPHILS % 57.7 % (36.0-66.0); PLATELET COUNT, AUTOMATED 318 10^3/uL (150-450); RED BLOOD COUNT 4.06 10^6/uL (4.00-5.40); WHITE BLOOD COUNT 7.7 10^3/uL (4.0-10.0)
[2022-12-25 11:35] LABS: CHOLESTEROL RISK RATIO 3.09 (<5); HDL CHOLESTEROL 53.6 MG/DL (>40); LDL CHOLESTEROL 87.4 MG/DL (<100); NON-HDL-C 112.4 MG/DL; PERCENT SATURATION 16.7 % (13.2-45.0)
[2022-12-25 11:39] LABS: FERRITIN 356.6 NG/ML (7.3-270.7); TOTAL 25(OH) VITAMIN D 44.4 NG/ML (20.0-100.0)
[2022-12-25 11:40] LABS: FREE T4 1.25 NG/DL (0.89-1.76); THYROID STIMULATING HORMONE 0.165 uIU/ML (0.55-4.78)
== END ==
LOC: M PLALAB 06:59
PROVIDERS: ATTEND Family Medicine
DX: E06.3 Autoimmune thyroiditis (principal); D50.9 Iron deficiency anemia, unspecified; E55.9 Vitamin D deficiency, unspecified; E78.00 Pure hypercholesterolemia, unspecified

== ENCOUNTER → 2023-01-21 | Outpatient (REF) | LOC: M EMP 08:06 | PROVIDERS: ATTEND Family Medicine | DX: Z11.52 Encounter for screening for COVID-19 (principal) ==

== ENCOUNTER → 2023-06-26 | Outpatient (CLI) | payer BC ==
[2023-06-26 10:18] LABS: ALBUMIN 3.7 G/DL (3.2-5.2); ALKALINE PHOSPHATASE 145 U/L (46-116); ALT/SGPT 21 U/L (7.0-40); AST/SGOT 21 U/L (<34); BILIRUBIN,TOTAL 0.2 MG/DL (0.3-1.2); BLOOD UREA NITROGEN 16 MG/DL (9-23); CALCIUM LEVEL 9.4 MG/DL (8.3-10.6); CARBON DIOXIDE LEVEL 27 MMOL/L (20-31); CHLORIDE LEVEL 111 MMOL/L (98-107); CREATININE FOR GFR 0.89 MG/DL (0.55-1.30); GLOMERULAR FILTRATION RATE > 60.0 (>45); GLUCOSE, FASTING 87 MG/DL (74-106); IRON (FE) 59 UG/DL (50-170); PERCENT SATURATION 19.7 % (13.2-45.0); POTASSIUM SERUM 4.2 MMOL/L (3.5-5.1); SODIUM LEVEL 144 MMOL/L (136-145); TOTAL IRON BINDING CAPACITY 299 UG/DL (250-425); TOTAL PROTEIN 6.6 G/DL (5.7-8.2)
[2023-06-26 10:22] LABS: FERRITIN 296.6 NG/ML (7.3-270.7)
[2023-06-26 10:26] LABS: INR 1.02; PROTHROMBIN TIME 13.1 SECONDS (12.5-14.5)
[2023-06-26 10:27] LABS: PARTIAL THROMBOPLASTIN TIME 29.8 SECONDS (24.8-34.2)
== END ==
LOC: M PLALAB 06:59
PROVIDERS: ATTEND Specialist
DX: D64.9 Anemia, unspecified (principal)

== ENCOUNTER → 2023-06-26 | Outpatient (CLI) | payer BC ==
[2023-06-26 10:19] LABS: ALBUMIN 3.7 G/DL (3.2-5.2); ALKALINE PHOSPHATASE 145 U/L (46-116); ALT/SGPT 22 U/L (7.0-40); AST/SGOT 21 U/L (<34); BILIRUBIN,TOTAL 0.2 MG/DL (0.3-1.2); BLOOD UREA NITROGEN 16 MG/DL (9-23); CALCIUM LEVEL 9.5 MG/DL (8.3-10.6); CARBON DIOXIDE LEVEL 28 MMOL/L (20-31); CHLORIDE LEVEL 111 MMOL/L (98-107); CHOLESTEROL LEVEL 203 MG/DL (<200); CHOLESTEROL RISK RATIO 3.31 (<5); CREATININE FOR GFR 0.92 MG/DL (0.55-1.30); GLOMERULAR FILTRATION RATE > 60.0 (>45); GLUCOSE, FASTING 87 MG/DL (74-106); HDL CHOLESTEROL 61.3 MG/DL (>40); LDL CHOLESTEROL 109.9 MG/DL (<100); NON-HDL-C 141.7 MG/DL; POTASSIUM SERUM 4.3 MMOL/L (3.5-5.1); SODIUM LEVEL 143 MMOL/L (136-145); TOTAL PROTEIN 6.7 G/DL (5.7-8.2); TRIGLYCERIDES LEVEL 159 MG/DL (<150)
[2023-06-26 10:21] LABS: FREE T4 1.09 NG/DL (0.89-1.76); THYROID STIMULATING HORMONE 3.279 uIU/ML (0.55-4.78)
[2023-06-26 10:22] LABS: TOTAL 25(OH) VITAMIN D 34.4 NG/ML (20.0-100.0)
== END ==
LOC: M PLALAB 06:57
PROVIDERS: ATTEND Family Medicine
DX: E06.3 Autoimmune thyroiditis (principal); E55.9 Vitamin D deficiency, unspecified; E78.00 Pure hypercholesterolemia, unspecified

== ENCOUNTER → 2023-07-17 | Outpatient (CLI) | payer BC | LOC: M WHC 10:54 | PROVIDERS: ATTEND Family Medicine | DX: Z12.31 Encounter for screening mammogram for malignant neoplasm of breast (principal) ==

== ENCOUNTER → 2023-08-18 | Outpatient (REF) | payer BC | LOC: M LAB REF 10:10 | PROVIDERS: ATTEND Dentist | DX: M27.2 Inflammatory conditions of jaws (principal) ==

== ENCOUNTER → 2023-09-19 | Outpatient (REF) | payer BC ==
[2023-09-19 13:08] LABS: BASO # 0.1 10^3/uL (0.0-0.2); BASO % 1.1 % (0.0-1.0); EOS # 0.4 10^3/uL (0.0-0.5); EOS % 4.2 % (0.0-3.0); HEMATOCRIT 37.6 % (36.0-47.0); HEMOGLOBIN 12.4 g/dl (12.0-15.5); LYMPH # 3.2 10^3/uL (1.5-5.0); LYMPH % 34.8 % (24.0-44.0); MEAN CORPUSCULAR HEMOGLOBIN 30.2 pg (27.0-33.0); MEAN CORPUSCULAR VOLUME 91.7 fl (80.0-96.0); MONO # 0.6 10^3/uL (0.0-0.8); MONO % 6.5 % (2.0-8.0); NEUTROPHILS # 4.9 10^3/uL (1.5-8.5); NEUTROPHILS % 53.2 % (36.0-66.0); PLATELET COUNT, AUTOMATED 349 10^3/uL (150-450); WHITE BLOOD COUNT 9.2 10^3/uL (4.0-10.0)
[2023-09-19 13:19] LABS: ERYTHROCYTE SEDIMENTATION RATE 31 mm/hr (0-30)
[2023-09-19 13:34] LABS: ALKALINE PHOSPHATASE 143 U/L (46-116); ALT/SGPT 23 U/L (7.0-40); AST/SGOT 18 U/L (<34); BILIRUBIN,TOTAL 0.2 MG/DL (0.3-1.2); BLOOD UREA NITROGEN 15 MG/DL (9-23); CALCIUM LEVEL 9.7 MG/DL (8.3-10.6); CARBON DIOXIDE LEVEL 29 MMOL/L (20-31); CHLORIDE LEVEL 103 MMOL/L (98-107); CREATININE FOR GFR 0.81 MG/DL (0.55-1.30); GLOMERULAR FILTRATION RATE > 60.0 (>45); GLUCOSE, FASTING 81 MG/DL (74-106); POTASSIUM SERUM 4.4 MMOL/L (3.5-5.1); SODIUM LEVEL 138 MMOL/L (136-145)
== END ==
LOC: M LABDRAWP 12:28
PROVIDERS: ATTEND Internal Medicine Infectious Disease
DX: K04.7 Periapical abscess without sinus (principal)

== ENCOUNTER → 2023-12-09 | Outpatient (REF) | payer BC | LOC: M LAB REF 13:09 | PROVIDERS: ATTEND Dentist | DX: K04.7 Periapical abscess without sinus (principal) ==

== ENCOUNTER 2023-12-15 16:35 | Outpatient (CLI) | payer BC ==
[~2023-12-15] VITALS: Ht 160 cm; Wt 81.8 kg
[~2023-12-15 16:35] MED LIST changes: -LIDOCAINE 1% MDV 20ML VIAL As Ordered ONE
[2023-12-15] MEDS: ERTAPENEM SODIUM 1 GM in NS MINI-BAG PLUS 50 ML IV ONE (17:15)
[2023-12-15 17:32] VITALS: BP 139/82; O2SAT 98
[2023-12-15 17:34] LABS: BASO # 0.1 10^3/uL (0.0-0.2); BASO % 0.8 % (0.0-1.0); EOS # 0.5 10^3/uL (0.0-0.5); EOS % 4.7 % (0.0-3.0); HEMATOCRIT 36.3 % (36.0-47.0); HEMOGLOBIN 12.1 g/dl (12.0-15.5); LYMPH # 3.2 10^3/uL (1.5-5.0); LYMPH % 30.7 % (24.0-44.0); MEAN CORPUSCULAR HEMOGLOBIN 29.7 pg (27.0-33.0); MEAN CORPUSCULAR HGB CONC 33.3 g/dl (32.0-36.5); MEAN CORPUSCULAR VOLUME 89.2 fl (80.0-96.0); MONO # 0.7 10^3/uL (0.0-0.8); MONO % 6.3 % (2.0-8.0); NEUTROPHILS % 57.2 % (36.0-66.0); PLATELET COUNT, AUTOMATED 375 10^3/uL (150-450); RED BLOOD COUNT 4.07 10^6/uL (4.00-5.40); WHITE BLOOD COUNT 10.4 10^3/uL (4.0-10.0)
[2023-12-15] MEDS ORDERED: SODIUM CHLORIDE 0.9% INJ 10 ML SYR IV PRN (17:40)
[2023-12-15 17:43] LABS: ERYTHROCYTE SEDIMENTATION RATE 45 mm/hr (0-30)
[2023-12-15] MEDS: SODIUM CHLORIDE 0.9% INJ 10 ML SYR IV SCH (17:45)
[2023-12-15 17:55] LABS: ALBUMIN 3.9 G/DL (3.2-5.2); ALKALINE PHOSPHATASE 142 U/L (46-116); ALT/SGPT 18 U/L (7.0-40); AST/SGOT 15 U/L (<34); BILIRUBIN,TOTAL 0.3 MG/DL (0.3-1.2); BLOOD UREA NITROGEN 16 MG/DL (9-23); CALCIUM LEVEL 9.2 MG/DL (8.3-10.6); CARBON DIOXIDE LEVEL 22 MMOL/L (20-31); CHLORIDE LEVEL 110 MMOL/L (98-107); CREATININE FOR GFR 0.84 MG/DL (0.55-1.30); GLOMERULAR FILTRATION RATE > 60.0 (>45); GLUCOSE, FASTING 83 MG/DL (74-106); SODIUM LEVEL 139 MMOL/L (136-145); TOTAL PROTEIN 6.8 G/DL (5.7-8.2)
== END 2023-12-15 18:00 ==
LOC: M INFU 16:35
PROVIDERS: ATTEND Internal Medicine Infectious Disease
DX: M86.9 Osteomyelitis, unspecified (principal); M27.2 Inflammatory conditions of jaws; Z88.0 Allergy status to penicillin; Z88.2 Allergy status to sulfonamides
CPT/HCPCS: 80053; 85025; 85652; 86140; 96365; J1335

== ENCOUNTER → 2023-12-15 | Outpatient (CLI) | payer BC ==
[~2023-12-15] MED LIST changes: +LIDOCAINE 1% MDV 20ML VIAL As Ordered ONE
[2023-12-15 16:43] VITALS: BP 131/87; TEMP 98.7; O2SAT 100
== END ==
LOC: M IRPRO 16:38
PROVIDERS: ATTEND Internal Medicine Infectious Disease
DX: M27.2 Inflammatory conditions of jaws (principal)
CPT/HCPCS: 36569; C1751

== ENCOUNTER → 2023-12-17 | Outpatient (REF) | payer BC ==
[2023-12-17 18:20] LABS: BASO # 0.1 10^3/uL (0.0-0.2); EOS # 0.5 10^3/uL (0.0-0.5); EOS % 5.3 % (0.0-3.0); HEMATOCRIT 34.7 % (36.0-47.0); HEMOGLOBIN 11.6 g/dl (12.0-15.5); LYMPH # 2.5 10^3/uL (1.5-5.0); LYMPH % 28.6 % (24.0-44.0); MEAN CORPUSCULAR HEMOGLOBIN 29.6 pg (27.0-33.0); MEAN CORPUSCULAR HGB CONC 33.4 g/dl (32.0-36.5); MEAN CORPUSCULAR VOLUME 88.5 fl (80.0-96.0); MONO # 0.6 10^3/uL (0.0-0.8); MONO % 6.9 % (2.0-8.0); NEUTROPHILS # 5.1 10^3/uL (1.5-8.5); NEUTROPHILS % 57.9 % (36.0-66.0); PLATELET COUNT, AUTOMATED 356 10^3/uL (150-450); RED BLOOD COUNT 3.92 10^6/uL (4.00-5.40); WHITE BLOOD COUNT 8.8 10^3/uL (4.0-10.0)
[2023-12-17 18:26] LABS: ERYTHROCYTE SEDIMENTATION RATE 39 mm/hr (0-30)
[2023-12-17 19:05] LABS: ALBUMIN 3.6 G/DL (3.2-5.2); ALKALINE PHOSPHATASE 130 U/L (46-116); ALT/SGPT 17 U/L (7.0-40); AST/SGOT 16 U/L (<34); BILIRUBIN,TOTAL 0.2 MG/DL (0.3-1.2); BLOOD UREA NITROGEN 18 MG/DL (9-23); CALCIUM LEVEL 10.5 MG/DL (8.3-10.6); CARBON DIOXIDE LEVEL 26 MMOL/L (20-31); CHLORIDE LEVEL 108 MMOL/L (98-107); CREATININE FOR GFR 0.81 MG/DL (0.55-1.30); GLOMERULAR FILTRATION RATE > 60.0 (>45); GLUCOSE, FASTING 93 MG/DL (74-106); POTASSIUM SERUM 4.1 MMOL/L (3.5-5.1); SODIUM LEVEL 141 MMOL/L (136-145); TOTAL PROTEIN 6.6 G/DL (5.7-8.2)
== END ==
LOC: M LAB REF 17:56
PROVIDERS: ATTEND Internal Medicine Infectious Disease
DX: M27.2 Inflammatory conditions of jaws (principal); K04.7 Periapical abscess without sinus

== ENCOUNTER → 2023-12-24 | Outpatient (REF) | payer BC ==
[2023-12-24 18:53] LABS: BASO # 0.1 10^3/uL (0.0-0.2); BASO % 0.9 % (0.0-1.0); EOS # 0.5 10^3/uL (0.0-0.5); EOS % 4.7 % (0.0-3.0); HEMATOCRIT 36.5 % (36.0-47.0); HEMOGLOBIN 11.7 g/dl (12.0-15.5); LYMPH # 3.3 10^3/uL (1.5-5.0); LYMPH % 33.1 % (24.0-44.0); MEAN CORPUSCULAR HEMOGLOBIN 28.8 pg (27.0-33.0); MEAN CORPUSCULAR HGB CONC 32.1 g/dl (32.0-36.5); MEAN CORPUSCULAR VOLUME 89.9 fl (80.0-96.0); MONO # 0.7 10^3/uL (0.0-0.8); MONO % 6.7 % (2.0-8.0); NEUTROPHILS # 5.4 10^3/uL (1.5-8.5); NEUTROPHILS % 54.4 % (36.0-66.0); PLATELET COUNT, AUTOMATED 379 10^3/uL (150-450); RED BLOOD COUNT 4.06 10^6/uL (4.00-5.40); WHITE BLOOD COUNT 9.9 10^3/uL (4.0-10.0)
[2023-12-24 18:58] LABS: ERYTHROCYTE SEDIMENTATION RATE 46 mm/hr (0-30)
[2023-12-24 19:17] LABS: ALBUMIN 3.9 G/DL (3.2-5.2); ALKALINE PHOSPHATASE 160 U/L (46-116); ALT/SGPT 30 U/L (7.0-40); AST/SGOT 28 U/L (<34); BILIRUBIN,TOTAL 0.2 MG/DL (0.3-1.2); BLOOD UREA NITROGEN 12 MG/DL (9-23); CALCIUM LEVEL 9.9 MG/DL (8.3-10.6); CARBON DIOXIDE LEVEL 26 MMOL/L (20-31); CHLORIDE LEVEL 104 MMOL/L (98-107); CREATININE FOR GFR 0.83 MG/DL (0.55-1.30); GLOMERULAR FILTRATION RATE > 60.0 (>45); GLUCOSE, FASTING 79 MG/DL (74-106); POTASSIUM SERUM 4.2 MMOL/L (3.5-5.1); SODIUM LEVEL 139 MMOL/L (136-145)
== END ==
LOC: M LAB REF 17:12
PROVIDERS: ATTEND Internal Medicine Infectious Disease
DX: M27.2 Inflammatory conditions of jaws (principal); K04.7 Periapical abscess without sinus

== ENCOUNTER → 2023-12-28 | Outpatient (REF) | payer BC ==
[2023-12-28 17:38] LABS: BASO # 0.1 10^3/uL (0.0-0.2); BASO % 1.3 % (0.0-1.0); EOS # 0.4 10^3/uL (0.0-0.5); EOS % 5.9 % (0.0-3.0); HEMATOCRIT 36.9 % (36.0-47.0); HEMOGLOBIN 11.8 g/dl (12.0-15.5); LYMPH # 2.1 10^3/uL (1.5-5.0); LYMPH % 28.2 % (24.0-44.0); MEAN CORPUSCULAR HEMOGLOBIN 28.7 pg (27.0-33.0); MEAN CORPUSCULAR VOLUME 89.8 fl (80.0-96.0); MONO # 0.5 10^3/uL (0.0-0.8); MONO % 7.2 % (2.0-8.0); NEUTROPHILS # 4.2 10^3/uL (1.5-8.5); NEUTROPHILS % 57.1 % (36.0-66.0); PLATELET COUNT, AUTOMATED 361 10^3/uL (150-450); RED BLOOD COUNT 4.11 10^6/uL (4.00-5.40); WHITE BLOOD COUNT 7.4 10^3/uL (4.0-10.0)
[2023-12-28 17:46] LABS: ERYTHROCYTE SEDIMENTATION RATE 37 mm/hr (0-30)
[2023-12-28 18:01] LABS: ALBUMIN 3.7 G/DL (3.2-5.2); ALKALINE PHOSPHATASE 160 U/L (46-116); ALT/SGPT 29 U/L (7.0-40); AST/SGOT 21 U/L (<34); BILIRUBIN,TOTAL 0.2 MG/DL (0.3-1.2); BLOOD UREA NITROGEN 12 MG/DL (9-23); CARBON DIOXIDE LEVEL 28 MMOL/L (20-31); CHLORIDE LEVEL 111 MMOL/L (98-107); CREATININE FOR GFR 0.75 MG/DL (0.55-1.30); GLOMERULAR FILTRATION RATE > 60.0 (>45); GLUCOSE, FASTING 56 MG/DL (74-106); POTASSIUM SERUM 4.4 MMOL/L (3.5-5.1); SODIUM LEVEL 143 MMOL/L (136-145); TOTAL PROTEIN 6.8 G/DL (5.7-8.2)
== END ==
LOC: M LAB REF 17:19
PROVIDERS: ATTEND Internal Medicine Infectious Disease
DX: M27.2 Inflammatory conditions of jaws (principal); K04.7 Periapical abscess without sinus

== ENCOUNTER → 2024-01-05 | Outpatient (REF) | payer BC ==
[2024-01-05 18:21] LABS: BASO # 0.1 10^3/uL (0.0-0.2); BASO % 0.7 % (0.0-1.0); EOS # 0.5 10^3/uL (0.0-0.5); EOS % 6.2 % (0.0-3.0); HEMATOCRIT 34.7 % (36.0-47.0); HEMOGLOBIN 11.3 g/dl (12.0-15.5); LYMPH # 2.5 10^3/uL (1.5-5.0); LYMPH % 28.9 % (24.0-44.0); MEAN CORPUSCULAR HEMOGLOBIN 29.2 pg (27.0-33.0); MEAN CORPUSCULAR HGB CONC 32.6 g/dl (32.0-36.5); MEAN CORPUSCULAR VOLUME 89.7 fl (80.0-96.0); MONO # 0.5 10^3/uL (0.0-0.8); MONO % 6.2 % (2.0-8.0); NEUTROPHILS % 57.8 % (36.0-66.0); PLATELET COUNT, AUTOMATED 378 10^3/uL (150-450); RED BLOOD COUNT 3.87 10^6/uL (4.00-5.40); WHITE BLOOD COUNT 8.6 10^3/uL (4.0-10.0)
[2024-01-05 18:39] LABS: ERYTHROCYTE SEDIMENTATION RATE 35 mm/hr (0-30)
[2024-01-05 18:52] LABS: ALKALINE PHOSPHATASE 150 U/L (46-116); ALT/SGPT 34 U/L (7.0-40); AST/SGOT 22 U/L (<34); BILIRUBIN,TOTAL 0.2 MG/DL (0.3-1.2); BLOOD UREA NITROGEN 19 MG/DL (9-23); CALCIUM LEVEL 9.4 MG/DL (8.3-10.6); CARBON DIOXIDE LEVEL 26 MMOL/L (20-31); CHLORIDE LEVEL 107 MMOL/L (98-107); CREATININE FOR GFR 0.83 MG/DL (0.55-1.30); GLOMERULAR FILTRATION RATE > 60.0 (>45); GLUCOSE, FASTING 81 MG/DL (74-106); SODIUM LEVEL 138 MMOL/L (136-145); TOTAL PROTEIN 6.9 G/DL (5.7-8.2)
== END ==
LOC: M LAB REF 18:07
PROVIDERS: ATTEND Internal Medicine Infectious Disease
DX: M27.2 Inflammatory conditions of jaws (principal); K04.7 Periapical abscess without sinus

== ENCOUNTER → 2024-01-13 | Outpatient (REF) | payer BC ==
[2024-01-13 19:27] LABS: BASO # 0.1 10^3/uL (0.0-0.2); BASO % 1.1 % (0.0-1.0); EOS # 0.4 10^3/uL (0.0-0.5); EOS % 5.1 % (0.0-3.0); HEMATOCRIT 35.3 % (36.0-47.0); HEMOGLOBIN 11.5 g/dl (12.0-15.5); LYMPH # 2.5 10^3/uL (1.5-5.0); LYMPH % 30.8 % (24.0-44.0); MEAN CORPUSCULAR HGB CONC 32.6 g/dl (32.0-36.5); MEAN CORPUSCULAR VOLUME 88.9 fl (80.0-96.0); MONO # 0.6 10^3/uL (0.0-0.8); MONO % 6.8 % (2.0-8.0); NEUTROPHILS # 4.6 10^3/uL (1.5-8.5); PLATELET COUNT, AUTOMATED 361 10^3/uL (150-450); RED BLOOD COUNT 3.97 10^6/uL (4.00-5.40); WHITE BLOOD COUNT 8.2 10^3/uL (4.0-10.0)
[2024-01-13 19:53] LABS: ALBUMIN 3.7 G/DL (3.2-5.2); ALKALINE PHOSPHATASE 167 U/L (46-116); ALT/SGPT 32 U/L (7.0-40); AST/SGOT 27 U/L (<34); BILIRUBIN,TOTAL 0.3 MG/DL (0.3-1.2); BLOOD UREA NITROGEN 15 MG/DL (9-23); CALCIUM LEVEL 9.3 MG/DL (8.3-10.6); CARBON DIOXIDE LEVEL 26 MMOL/L (20-31); CHLORIDE LEVEL 107 MMOL/L (98-107); CREATININE FOR GFR 0.99 MG/DL (0.55-1.30); GLOMERULAR FILTRATION RATE > 60.0 (>45); GLUCOSE, FASTING 93 MG/DL (74-106); POTASSIUM SERUM 4.2 MMOL/L (3.5-5.1); SODIUM LEVEL 138 MMOL/L (136-145); TOTAL PROTEIN 6.7 G/DL (5.7-8.2)
[2024-01-13 19:55] LABS: ERYTHROCYTE SEDIMENTATION RATE 31 mm/hr (0-30)
== END ==
LOC: M LAB REF 18:04
PROVIDERS: ATTEND Internal Medicine Infectious Disease
DX: M27.2 Inflammatory conditions of jaws (principal); K04.7 Periapical abscess without sinus

== ENCOUNTER → 2024-01-14 | Outpatient (CLI) | payer BC ==
[2024-01-14 11:03] LABS: BASO # 0.1 10^3/uL (0.0-0.2); BASO % 1.3 % (0.0-1.0); EOS # 0.4 10^3/uL (0.0-0.5); EOS % 4.9 % (0.0-3.0); HEMATOCRIT 38.8 % (36.0-47.0); HEMOGLOBIN 12.3 g/dl (12.0-15.5); LYMPH # 2.3 10^3/uL (1.5-5.0); LYMPH % 27.7 % (24.0-44.0); MEAN CORPUSCULAR HEMOGLOBIN 28.4 pg (27.0-33.0); MEAN CORPUSCULAR HGB CONC 31.7 g/dl (32.0-36.5); MEAN CORPUSCULAR VOLUME 89.6 fl (80.0-96.0); MONO # 0.5 10^3/uL (0.0-0.8); MONO % 6.6 % (2.0-8.0); NEUTROPHILS # 4.8 10^3/uL (1.5-8.5); NEUTROPHILS % 59.1 % (36.0-66.0); PLATELET COUNT, AUTOMATED 388 10^3/uL (150-450); RED BLOOD COUNT 4.33 10^6/uL (4.00-5.40); WHITE BLOOD COUNT 8.2 10^3/uL (4.0-10.0)
[2024-01-14 11:25] LABS: IRON (FE) 53 UG/DL (50-170)
[2024-01-14 11:26] LABS: FERRITIN 243.2 NG/ML (7.3-270.7); PERCENT SATURATION 17.6 % (13.2-45.0); THYROID STIMULATING HORMONE 0.392 uIU/ML (0.55-4.78); TOTAL 25(OH) VITAMIN D 39.1 NG/ML (20.0-100.0); TOTAL IRON BINDING CAPACITY 301 UG/DL (250-425)
[2024-01-14 11:27] LABS: FREE T4 1.38 NG/DL (0.89-1.76)
[2024-01-14 11:34] LABS: ALBUMIN 3.9 G/DL (3.2-5.2); ALKALINE PHOSPHATASE 184 U/L (46-116); ALT/SGPT 30 U/L (7.0-40); AST/SGOT 24 U/L (<34); BILIRUBIN,TOTAL 0.4 MG/DL (0.3-1.2); BLOOD UREA NITROGEN 14 MG/DL (9-23); CALCIUM LEVEL 10.8 MG/DL (8.3-10.6); CARBON DIOXIDE LEVEL 28 MMOL/L (20-31); CHLORIDE LEVEL 108 MMOL/L (98-107); CHOLESTEROL LEVEL 198 MG/DL (<200); CHOLESTEROL RISK RATIO 3.33 (<5); GLOMERULAR FILTRATION RATE > 60.0 (>45); GLUCOSE, FASTING 83 MG/DL (74-106); HDL CHOLESTEROL 59.3 MG/DL (>40); LDL CHOLESTEROL 105.5 MG/DL (<100); NON-HDL-C 138.7 MG/DL; POTASSIUM SERUM 4.9 MMOL/L (3.5-5.1); SODIUM LEVEL 143 MMOL/L (136-145); TOTAL PROTEIN 7.2 G/DL (5.7-8.2); TRIGLYCERIDES LEVEL 166 MG/DL (<150)
== END ==
LOC: M PLALAB 06:57
PROVIDERS: ATTEND Family Medicine
DX: E06.3 Autoimmune thyroiditis (principal); D50.9 Iron deficiency anemia, unspecified; E78.00 Pure hypercholesterolemia, unspecified; E55.9 Vitamin D deficiency, unspecified

== ENCOUNTER → 2024-01-20 | Outpatient (REF) | payer BC ==
[2024-01-20 18:39] LABS: BASO # 0.1 10^3/uL (0.0-0.2); BASO % 1.2 % (0.0-1.0); EOS # 0.4 10^3/uL (0.0-0.5); EOS % 4.6 % (0.0-3.0); HEMATOCRIT 35.3 % (36.0-47.0); HEMOGLOBIN 11.7 g/dl (12.0-15.5); LYMPH # 2.9 10^3/uL (1.5-5.0); LYMPH % 35.8 % (24.0-44.0); MEAN CORPUSCULAR HGB CONC 33.1 g/dl (32.0-36.5); MEAN CORPUSCULAR VOLUME 87.6 fl (80.0-96.0); MONO # 0.5 10^3/uL (0.0-0.8); MONO % 6.6 % (2.0-8.0); NEUTROPHILS # 4.2 10^3/uL (1.5-8.5); NEUTROPHILS % 51.6 % (36.0-66.0); PLATELET COUNT, AUTOMATED 362 10^3/uL (150-450); RED BLOOD COUNT 4.03 10^6/uL (4.00-5.40); WHITE BLOOD COUNT 8.2 10^3/uL (4.0-10.0)
[2024-01-20 18:47] LABS: ERYTHROCYTE SEDIMENTATION RATE 37 mm/hr (0-30)
[2024-01-20 19:14] LABS: ALBUMIN 3.9 G/DL (3.2-5.2); ALKALINE PHOSPHATASE 167 U/L (46-116); ALT/SGPT 27 U/L (7.0-40); AST/SGOT 25 U/L (<34); BILIRUBIN,TOTAL 0.3 MG/DL (0.3-1.2); BLOOD UREA NITROGEN 17 MG/DL (9-23); CALCIUM LEVEL 9.7 MG/DL (8.3-10.6); CARBON DIOXIDE LEVEL 27 MMOL/L (20-31); CHLORIDE LEVEL 104 MMOL/L (98-107); CREATININE FOR GFR 0.85 MG/DL (0.55-1.30); GLOMERULAR FILTRATION RATE > 60.0 (>45); GLUCOSE, FASTING 70 MG/DL (74-106); SODIUM LEVEL 138 MMOL/L (136-145)
== END ==
LOC: M LAB REF 17:40
PROVIDERS: ATTEND Internal Medicine Infectious Disease
DX: M27.2 Inflammatory conditions of jaws (principal); K04.7 Periapical abscess without sinus

== ENCOUNTER → 2024-01-23 | Outpatient (CLI) | payer BC ==
[~2024-01-23] MED LIST changes: +ISOVUE-370 76% 100ML VIAL ONE
== END ==
LOC: M PLAIMG 07:00
PROVIDERS: ATTEND Dentist
DX: M27.2 Inflammatory conditions of jaws (principal)
CPT/HCPCS: 70488; Q9967

== ENCOUNTER → 2024-01-27 | Outpatient (REF) | payer BC ==
[~2024-01-27] MED LIST changes: -ISOVUE-370 76% 100ML VIAL ONE
[2024-01-27 18:01] LABS: BASO # 0.1 10^3/uL (0.0-0.2); BASO % 1.2 % (0.0-1.0); EOS # 0.5 10^3/uL (0.0-0.5); EOS % 5.5 % (0.0-3.0); HEMATOCRIT 34.9 % (36.0-47.0); HEMOGLOBIN 11.6 g/dl (12.0-15.5); LYMPH % 35.3 % (24.0-44.0); MEAN CORPUSCULAR HEMOGLOBIN 29.2 pg (27.0-33.0); MEAN CORPUSCULAR HGB CONC 33.2 g/dl (32.0-36.5); MEAN CORPUSCULAR VOLUME 87.9 fl (80.0-96.0); MONO # 0.5 10^3/uL (0.0-0.8); MONO % 6.4 % (2.0-8.0); NEUTROPHILS # 4.3 10^3/uL (1.5-8.5); NEUTROPHILS % 51.4 % (36.0-66.0); PLATELET COUNT, AUTOMATED 338 10^3/uL (150-450); RED BLOOD COUNT 3.97 10^6/uL (4.00-5.40); WHITE BLOOD COUNT 8.4 10^3/uL (4.0-10.0)
[2024-01-27 18:18] LABS: ALBUMIN 3.9 G/DL (3.2-5.2); ALKALINE PHOSPHATASE 172 U/L (46-116); ALT/SGPT 29 U/L (7.0-40); AST/SGOT 24 U/L (<34); BILIRUBIN,TOTAL 0.3 MG/DL (0.3-1.2); BLOOD UREA NITROGEN 14 MG/DL (9-23); CALCIUM LEVEL 10.1 MG/DL (8.3-10.6); CARBON DIOXIDE LEVEL 26 MMOL/L (20-31); CHLORIDE LEVEL 106 MMOL/L (98-107); CREATININE FOR GFR 0.87 MG/DL (0.55-1.30); GLOMERULAR FILTRATION RATE > 60.0 (>45); GLUCOSE, FASTING 78 MG/DL (74-106); POTASSIUM SERUM 4.3 MMOL/L (3.5-5.1); SODIUM LEVEL 141 MMOL/L (136-145)
[2024-01-27 18:24] LABS: ERYTHROCYTE SEDIMENTATION RATE 29 mm/hr (0-30)
== END ==
LOC: M LAB REF 17:28
PROVIDERS: ATTEND Internal Medicine Infectious Disease
DX: M27.2 Inflammatory conditions of jaws (principal); K04.7 Periapical abscess without sinus

== ENCOUNTER → 2024-02-03 | Outpatient (REF) | payer BC ==
[2024-02-03 19:28] LABS: BASO # 0.1 10^3/uL (0.0-0.2); BASO % 1.2 % (0.0-1.0); EOS # 0.4 10^3/uL (0.0-0.5); EOS % 5.9 % (0.0-3.0); LYMPH # 2.2 10^3/uL (1.5-5.0); LYMPH % 32.4 % (24.0-44.0); MEAN CORPUSCULAR HEMOGLOBIN 28.6 pg (27.0-33.0); MEAN CORPUSCULAR HGB CONC 32.4 g/dl (32.0-36.5); MEAN CORPUSCULAR VOLUME 88.3 fl (80.0-96.0); MONO # 0.5 10^3/uL (0.0-0.8); MONO % 7.6 % (2.0-8.0); NEUTROPHILS # 3.6 10^3/uL (1.5-8.5); NEUTROPHILS % 52.8 % (36.0-66.0); PLATELET COUNT, AUTOMATED 312 10^3/uL (150-450); RED BLOOD COUNT 3.85 10^6/uL (4.00-5.40); WHITE BLOOD COUNT 6.8 10^3/uL (4.0-10.0)
[2024-02-03 19:44] LABS: ERYTHROCYTE SEDIMENTATION RATE 24 mm/hr (0-30)
[2024-02-03 19:58] LABS: ALBUMIN 3.7 G/DL (3.2-5.2); ALKALINE PHOSPHATASE 155 U/L (46-116); ALT/SGPT 32 U/L (7.0-40); AST/SGOT 26 U/L (<34); BILIRUBIN,TOTAL 0.2 MG/DL (0.3-1.2); BLOOD UREA NITROGEN 19 MG/DL (9-23); CALCIUM LEVEL 8.9 MG/DL (8.3-10.6); CARBON DIOXIDE LEVEL 29 MMOL/L (20-31); CHLORIDE LEVEL 106 MMOL/L (98-107); CREATININE FOR GFR 0.93 MG/DL (0.55-1.30); GLOMERULAR FILTRATION RATE > 60.0 (>45); GLUCOSE, FASTING 102 MG/DL (74-106); POTASSIUM SERUM 4.2 MMOL/L (3.5-5.1); SODIUM LEVEL 139 MMOL/L (136-145); TOTAL PROTEIN 6.6 G/DL (5.7-8.2)
== END ==
LOC: M LAB REF 17:46
PROVIDERS: ATTEND Internal Medicine Infectious Disease
DX: M27.2 Inflammatory conditions of jaws (principal); K04.7 Periapical abscess without sinus

== ENCOUNTER → 2024-02-10 | Outpatient (REF) | payer BC ==
[2024-02-10 17:56] LABS: BASO # 0.1 10^3/uL (0.0-0.2); BASO % 0.9 % (0.0-1.0); EOS # 0.4 10^3/uL (0.0-0.5); EOS % 5.8 % (0.0-3.0); HEMATOCRIT 34.5 % (36.0-47.0); HEMOGLOBIN 11.5 g/dl (12.0-15.5); LYMPH # 2.5 10^3/uL (1.5-5.0); LYMPH % 33.7 % (24.0-44.0); MEAN CORPUSCULAR HGB CONC 33.3 g/dl (32.0-36.5); MEAN CORPUSCULAR VOLUME 87.1 fl (80.0-96.0); MONO # 0.6 10^3/uL (0.0-0.8); NEUTROPHILS # 3.8 10^3/uL (1.5-8.5); NEUTROPHILS % 51.3 % (36.0-66.0); PLATELET COUNT, AUTOMATED 351 10^3/uL (150-450); RED BLOOD COUNT 3.96 10^6/uL (4.00-5.40); WHITE BLOOD COUNT 7.4 10^3/uL (4.0-10.0)
[2024-02-10 18:18] LABS: ERYTHROCYTE SEDIMENTATION RATE 30 mm/hr (0-30)
[2024-02-10 18:33] LABS: ALBUMIN 3.7 G/DL (3.2-5.2); ALKALINE PHOSPHATASE 161 U/L (46-116); ALT/SGPT 36 U/L (7.0-40); AST/SGOT 29 U/L (<34); BILIRUBIN,TOTAL 0.2 MG/DL (0.3-1.2); BLOOD UREA NITROGEN 17 MG/DL (9-23); CALCIUM LEVEL 10.8 MG/DL (8.3-10.6); CARBON DIOXIDE LEVEL 27 MMOL/L (20-31); CHLORIDE LEVEL 106 MMOL/L (98-107); CREATININE FOR GFR 0.85 MG/DL (0.55-1.30); GLOMERULAR FILTRATION RATE > 60.0 (>45); GLUCOSE, FASTING 98 MG/DL (74-106); POTASSIUM SERUM 4.4 MMOL/L (3.5-5.1); SODIUM LEVEL 138 MMOL/L (136-145); TOTAL PROTEIN 6.8 G/DL (5.7-8.2)
== END ==
LOC: M LAB REF 17:09
PROVIDERS: ATTEND Internal Medicine Infectious Disease
DX: Z00.00 Encounter for general adult medical examination without abnormal findings (principal)

== ENCOUNTER → 2024-07-13 | Outpatient (CLI) | payer BC ==
[2024-07-13 10:50] LABS: BASO # 0.1 10^3/uL (0.0-0.2); BASO % 1.1 % (0.0-1.0); EOS # 0.4 10^3/uL (0.0-0.5); EOS % 4.7 % (0.0-3.0); HEMATOCRIT 39.2 % (36.0-47.0); HEMOGLOBIN 12.7 g/dl (12.0-15.5); LYMPH # 2.4 10^3/uL (1.5-5.0); LYMPH % 28.7 % (24.0-44.0); MEAN CORPUSCULAR HEMOGLOBIN 29.7 pg (27.0-33.0); MEAN CORPUSCULAR HGB CONC 32.4 g/dl (32.0-36.5); MEAN CORPUSCULAR VOLUME 91.8 fl (80.0-96.0); MONO # 0.5 10^3/uL (0.0-0.8); MONO % 6.5 % (2.0-8.0); NEUTROPHILS # 4.9 10^3/uL (1.5-8.5); NEUTROPHILS % 58.9 % (36.0-66.0); PLATELET COUNT, AUTOMATED 327 10^3/uL (150-450); RED BLOOD COUNT 4.27 10^6/uL (4.00-5.40); WHITE BLOOD COUNT 8.3 10^3/uL (4.0-10.0)
[2024-07-13 10:55] LABS: ALBUMIN 3.9 G/DL (3.2-5.2); ALKALINE PHOSPHATASE 124 U/L (35-104); ALT/SGPT 20 U/L (7.0-40); AST/SGOT 21 U/L (<34); BILIRUBIN,TOTAL 0.4 MG/DL (0.3-1.2); BLOOD UREA NITROGEN 14 MG/DL (9-23); CALCIUM LEVEL 9.8 MG/DL (8.3-10.6); CARBON DIOXIDE LEVEL 28 MMOL/L (20-31); CHLORIDE LEVEL 108 MMOL/L (98-107); CHOLESTEROL LEVEL 188 MG/DL (<200); CHOLESTEROL RISK RATIO 2.95 (<5); CREATININE FOR GFR 0.97 MG/DL (0.55-1.30); GLOMERULAR FILTRATION RATE > 60.0 (>45); GLUCOSE, FASTING 82 MG/DL (74-106); HDL CHOLESTEROL 63.7 MG/DL (>40); IRON (FE) 62 UG/DL (50-170); LDL CHOLESTEROL 85.1 MG/DL (<100); NON-HDL-C 124.3 MG/DL; POTASSIUM SERUM 4.3 MMOL/L (3.5-5.1); SODIUM LEVEL 145 MMOL/L (136-145); TRIGLYCERIDES LEVEL 196 MG/DL (<150)
[2024-07-13 10:56] LABS: FERRITIN 166.1 NG/ML (7.3-270.7); THYROID STIMULATING HORMONE 0.645 uIU/ML (0.55-4.78); TOTAL 25(OH) VITAMIN D 45.5 NG/ML (20.0-100.0)
[2024-07-13 10:57] LABS: FREE T4 1.31 NG/DL (0.89-1.76); VITAMIN B12 LEVEL 412 PG/ML (211-911)
== END ==
LOC: M PLALAB 06:58
PROVIDERS: ATTEND Family Medicine
DX: E06.3 Autoimmune thyroiditis (principal); D50.9 Iron deficiency anemia, unspecified; E78.00 Pure hypercholesterolemia, unspecified; E55.9 Vitamin D deficiency, unspecified

== ENCOUNTER → 2025-04-04 | Outpatient (CLI) | payer BC ==
[~2025-04-04] MED LIST changes: -AMBI5TAB PO; +ZOLP-532 PO
== END ==
LOC: M RAD 16:32
PROVIDERS: ATTEND Family Medicine
DX: R42 Dizziness and giddiness (principal)